=== PATIENT | female | born 1945 | race Caucasian/White ===

== ENCOUNTER 2024-03-27 08:01 | Day surgery (SDC) | payer OTHER, SELFPAY | END 2024-03-27 10:18 | disposition home or self-care (01) | LOC: CATH 08:01 | PROVIDERS: ATTENDING PHYSICIAN Internal Medicine Cardiovascular Disease; FAMILY PHYSICIAN Dentist Oral and Maxillofacial Surgery; OTHER PHYSICIAN Internal Medicine Interventional Cardiology | DX: I08.3 Combined rheumatic disorders of mitral, aortic and tricuspid valves (principal); I48.91 Unspecified atrial fibrillation; R07.89 Other chest pain; R06.09 Other forms of dyspnea; I45.2 Bifascicular block; I10 Essential (primary) hypertension; J44.9 Chronic obstructive pulmonary disease, unspecified; Z79.01 Long term (current) use of anticoagulants | CPT/HCPCS: 93312; 93320; 93325; 93005 ==

== ENCOUNTER 2024-04-24 08:51 | Inpatient (IN) | payer OTHER, SELFPAY ==
[2024-04-24] VITALS (8 sets, daily range): BP systolic 110–142; BP diastolic 63–92; BMI 23.1
--- NOTE | 2024-04-24 09:49 | W.PN.UPDATE ---
Update Note
Progress Note Update
Brief CTS note
Patient admitted preemptively in anticipation of MVR/TVR/MAZE/ELAA on Tuesday with Dr. Gomez.
Preoperative stratification has been ordered and is partially completed.
Non contrast CT of the chest shows collapsed left lower lobe. ? bronchial mass. Will need further evaluation with possible bronch vs. contrast enhanced CT. Will discuss with Dr. Gomez.
Complete PFTs completed this AM - interpretation pending.
Needs PA catheter - planning for today pending tree tapping laborer availability. Will then make determination regarding diuresis.
Will eventually need IV heparin given afib. Last Eliquis dose yesterday morning per the patient. Will hold with pending tree tapping laborer procedure.
[2024-04-24 10:16] LABS: Hematocrit 38.2 % (37.0-47.0); Hemoglobin 12.9 g/dL (12.0-16.0); Mean Corp Hgb Conc. 33.8 g/dL (33.0-37.0); Mean Corpuscular Hgb 31.6 pg (27.0-31.0); Mean Corpuscular Volume 93.6 fL (81.0-99.0); Mean Platelet Volume 9.5 fL (7.4-10.4); Platelet Count 254 10^3/uL (130-400); Red Blood Cell Count 4.08 10^6/uL (4.20-5.40); Red Cell Dist. Width 12.9 % (11.5-14.5); White Blood Cell Count 6.2 10^3/uL (4.8-10.8)
[2024-04-24 10:21] LABS: INR 1.21; PT 15.2 Sec (11.4-14.6)
[2024-04-24 10:22] LABS: APTT 30.3 Sec (23.4-35.0)
[2024-04-24 11:13] LABS: ALT (SGPT) 27 U/L (0-35); AST (SGOT) 30 U/L (14-36); Albumin 4.2 g/dl (3.5-5.0); Alkaline Phosphatase 63 U/L (38-126); Blood Urea Nitrogen 44 mg/dl (7-17); Calcium 10.6 mg/dl (8.4-10.2); Carbon Dioxide 29 mmol/L (22-30); Chloride 94 mmol/L (98-107); Direct Bilirubin 0.1 mg/dl (0.0-0.4); Estimated Creatinine Clearance 25 ml/min; Glucose 98 mg/dl (70-99); Potassium 4.1 mmol/L (3.5-5.1); Sodium 136 mmol/L (135-145); Total Bilirubin 0.5 mg/dl (0.2-1.3); Total Protein 6.7 g/dl (6.3-8.2); eGFR 38.03
--- NOTE | 2024-04-24 11:47 | PTCARENOTE ---
admitted patient into room. admission done. IV placed and labs drawn. ekg done. NPO. being sent for pre op testing and PFTs. swan placement today. granddaughter at bedside with patient. will continue to monitor.
--- NOTE | 2024-04-24 13:28 | CON.CAR ---
Addendum entered and electronically signed by Shane De Jesus MD 04/24/24 16:01:
patient seen and examined
agree with SHAD Carreon's note and assessment
agree with SHAD Carreon's plan
for rhc today
exam:
murmurs noted
aao x 3
non focal neurologically
af noted on tele reate controlled
cor irreg irreg
lungs diminished at bases
remainder PA-C exam
Impression:
Direct admission for planned MVR, TVR, MAZE and DUSTIN clip on 04/27/24
Severe MR by GABRIELA 03/27/24
Moderate TR
Persistent Afib
Chronic Eliquis OAC, last dose 04/23/24 AM
HTN
Former smoker
Nonobstructive CAD by cath at 05/04/23
RBBB
LAFB
h/o 2:1 AV block at time of cath 04/2023
CKD 3b
GABRIELA 03/27/2024: EF 60 to 65%, normal regional wall motion, severe mitral valve prolapse at predominantly P2 with a likely torn cord, eccentric jet of severe MR with peak E wave velocity 1.3M/S, mean gradient 2 mmHg, mild aortic regurgitation,
moderate TR
Plan:
-Patient came to today for elective admission prior to planned MVR, TVR, MAZE and DUSTIN clip on 04/27/24 for severe MR, moderate TR and persistent Afib, cardiology now consulted to follow along. Patient sees Dr. Knox at [facility]. Patient had an
abnormal stress test in the fall 2022 and was then referred for cardiac catheterization which was performed on 05/04/2023. Patient had near normal coronary arteries at time of cardiac cath 05/04/2023. Patient also noted to have intermittent 2-1 AV
block with heart rates in the 40s during the procedure and so her outpatient dose of metoprolol was stopped. Patient had a repeat echo a couple of months after cardiac cath that showed clear prolapse of a posterior scallop with severe eccentric MR
and also evidence of more severe TR. Patient then had GABRIELA on 03/27/2024 which showed preserved EF and severe MR. Patient was seen by CT surgery as an outpatient on 03/28/2024 and it was felt that she would be a candidate for MVR, TVR, MAC and DUSTIN
clip. Patient has a history of persistent atrial fibrillation.
-Patient to have [place] catheter placed on 04/24/24 by interventional cardiology
-ECG from today reviewed by me shows Afib with RBBB. Patient has a h/o intermittent 2:1 AV block and metoprolol was stopped 04/2023. Patient wore a 7-day Holter monitor from 01/12/24 until 01/24/24 that showed reasonable rate control of her atrial
fibrillation with heart rate ranging from 64 to 149 bpm and the average heart rate was 98 bpm. Will follow on tele post-op.
-Outpatient dose of Eliquis 5 mg BID (age 78, Cre 1.4, wt 57.3) is on hold in anticipation of surgery. Given age 78 and wt 57.3 patient should be on Eliquis 2.5 mg BID upon d/c.
Original Note:
Consultation
Consultation Request
Date/Time Consultation Requested: 04/24/24
Date/Time Consultation Performed: 04/24/24
Requesting Provider: Dr. Gomez
Performing Provider: Dr. De Jesus
Reason for Consultation: Preoperative evaluation for planned MVR/TVR
Medical History
-
History of Present Illness:
Patient came to today for elective admission prior to planned MVR, TVR, MAZE and DUSTIN clip on 04/27/24 for severe MR, moderate TR and persistent Afib, cardiology now consulted to follow along. Patient sees Dr. Knox at [facility]. Patient had an
abnormal stress test in the fall 2022 and was then referred for cardiac catheterization which was performed on 05/04/2023. Patient had near normal coronary arteries at time of cardiac cath 05/04/2023. Patient also noted to have intermittent 2-1 AV
block with heart rates in the 40s during the procedure and so her outpatient dose of metoprolol was stopped. Patient had a repeat echo a couple of months after cardiac cath that showed clear prolapse of a posterior scallop with severe eccentric MR
and also evidence of more severe TR. Patient then had GABRIELA on 03/27/2024 which showed preserved EF and severe MR. Patient was seen by CT surgery as an outpatient on 03/28/2024 and it was felt that she would be a candidate for MVR, TVR, MAC and DUSTIN
clip. Patient has a history of persistent atrial fibrillation.
PMH:
Severe MR by GABRIELA 03/27/24
Moderate TR
Persistent Afib
Chronic Eliquis OAC, last dose 04/23/24 AM
HTN
Former smoker
Nonobstructive CAD by cath at 05/04/23
RBBB
LAFB
h/o 2:1 AV block at time of cath 04/2023
CKD 3b
Past Medical History
Past Medical History: Other (in HPI)
Past Surgical History: Appendectomy
Social History
Tobacco: Former Smoker
Alcohol: None
Drug: None
Personal:
Living: With Family
Family History
Family History: Cancer and Diabetes
Allergies / Home Medications
Allergy/AdvReac Type Severity Reaction Status Date / Time
Iodinated Contrast Media Allergy Unknown Verified 04/09/24 09:30
�Medication �Instructions �Recorded �Confirmed �Type
amlodipine 2.5 mg tablet 2.5 mg PO DAILY Blood Pressure 05/04/23 04/09/24 History
apixaban 5 mg tablet (Eliquis) 5 mg PO BID Blood Clot 05/04/23 04/09/24 History
Prevention/Tx
ipratropium 0.5 mg-albuterol 3 mg 3 ml inhalation PRN PRN SOB 05/04/23 04/09/24 History
(2.5 mg base)/3 mL nebulization
soln
ramipril 5 mg capsule 5 mg PO DAILY Blood Pressure 05/04/23 04/09/24 History
rosuvastatin 20 mg tablet 20 mg PO DAILY High Cholesterol 05/04/23 04/09/24 History
elysixnq-oof-klfw-FA-Ca carb-vit K 1 tab PO DAILY Supplement 03/27/24 04/09/24 History
18 mg iron-400 mcg-500 mg tablet
Review of Systems
-
History Source: Patient
All other systems: Negative unless noted
Physical Exam
Vital Signs
Temp Pulse Resp BP Pulse Ox
97.6 F 84 18 121/81 97
04/24/24 09:19 04/24/24 09:30 04/24/24 09:22 04/24/24 09:22 04/24/24 10:12
GEN: NAD. AAOx3
HEENT: EOMI, MMM
LUNGS: No audible wheezes
CV: Afib on tele
ABD: ND
EXT: No edema B/L
NEURO: Gross non-focal
SKIN: No rash
Lab Results
04/24/24 12:27
04/24/24 10:02
Impression / Plan
-
PCP: Dr. Hiren Gamino
Cardiology: Dr. Knox
Impression:
Direct admission for planned MVR, TVR, MAZE and DUSTIN clip on 04/27/24
Severe MR by GABRIELA 03/27/24
Moderate TR
Persistent Afib
Chronic Eliquis OAC, last dose 04/23/24 AM
HTN
Former smoker
Nonobstructive CAD by cath at 05/04/23
RBBB
LAFB
h/o 2:1 AV block at time of cath 04/2023
CKD 3b
GABRIELA 03/27/2024: EF 60 to 65%, normal regional wall motion, severe mitral valve prolapse at predominantly P2 with a likely torn cord, eccentric jet of severe MR with peak E wave velocity 1.3M/S, mean gradient 2 mmHg, mild aortic regurgitation,
moderate TR
Plan:
-Patient came to today for elective admission prior to planned MVR, TVR, MAZE and DUSTIN clip on 04/27/24 for severe MR, moderate TR and persistent Afib, cardiology now consulted to follow along. Patient sees Dr. Knox at [facility]. Patient had an
abnormal stress test in the fall 2022 and was then referred for cardiac catheterization which was performed on 05/04/2023. Patient had near normal coronary arteries at time of cardiac cath 05/04/2023. Patient also noted to have intermittent 2-1 AV
block with heart rates in the 40s during the procedure and so her outpatient dose of metoprolol was stopped. Patient had a repeat echo a couple of months after cardiac cath that showed clear prolapse of a posterior scallop with severe eccentric MR
and also evidence of more severe TR. Patient then had GABRIELA on 03/27/2024 which showed preserved EF and severe MR. Patient was seen by CT surgery as an outpatient on 03/28/2024 and it was felt that she would be a candidate for MVR, TVR, MAC and DUSTIN
clip. Patient has a history of persistent atrial fibrillation.
-Patient to have [place] catheter placed on 04/24/24 by interventional cardiology
-ECG from today reviewed by me shows Afib with RBBB. Patient has a h/o intermittent 2:1 AV block and metoprolol was stopped 04/2023. Patient wore a 7-day Holter monitor from 01/12/24 until 01/24/24 that showed reasonable rate control of her atrial
fibrillation with heart rate ranging from 64 to 149 bpm and the average heart rate was 98 bpm. Will follow on tele post-op.
-Outpatient dose of Eliquis 5 mg BID (age 78, Cre 1.4, wt 57.3) is on hold in anticipation of surgery. Given age 78 and wt 57.3 patient should be on Eliquis 2.5 mg BID upon d/c.
-
[2024-04-24 13:40] LABS: B.E. 2.6 mmol/L; HCO3 27.2 mmol/L (21-28); O2 Saturation % 96.1 % (94-98); PCO2 41 mmHg (32-35); PO2 65 mmHg (83-108); pH 7.43 (7.35-7.45)
[2024-04-24] MEDS: BUMEX 50 IV (13:58)
--- NOTE | 2024-04-24 14:01 | PTCARENOTE ---
bumex gtt initiated at ordered rate. will continue to monitor.
--- NOTE | 2024-04-24 14:48 | CM ---
spoke to pt in room, she is prev indep, lives with her husb and grandaughter/ in a 2 story home with 1 step to enter. she has a cane at home to use if needed. plan is for MVR/TVR/MAZE/DUSTIN on 04/27. cm to preop tomorrow.
--- NOTE | 2024-04-24 14:57 | CON.INTV ---
Consultation
Consultation Request
Date/Time Consultation Requested: 04/24/2024
Date/Time Consultation Performed: 04/24/2024
Requesting Provider: Dr. Gomez
Performing Provider: Dr. Kolton Karimi
Reason for Consultation: Abnormal CT chest
Medical History
-
History of Present Illness:
78-year-old female former smoker, with mitral valve disease on recent echocardiogram 12/2023 demonstrated severely dilated left atrium with mitral regurgitation. She has been electively admitted 04/24/2024 in preparation for cardiac surgery on
Tuesday. Plan surgeries MVR, TVR, maze, DUSTIN clip for severe MR, moderate TR and persistent atrial fibrillation.
Patient has history of intermittent 2-1 AV block with low heart rates in the 40s.
Underwent CT of the chest that demonstrated left lower lobe atelectasis, cannot rule out endobronchial mass.
Patient reports recent admission to [facility] with bronchitis. Completed antibiotic therapy.
She does not follow-up with pulmonary. Usually takes nebulizers as needed.
Denies hemoptysis
Denies recent prior CAT scans.
Past Medical History
Past Medical History: Other ( see assessment and plan)
Social History
Tobacco: Former Smoker
Alcohol: None
Drug: None
Personal:
Living: With Family
Family History
Family History: Reviewed & Not Pertinent
Allergies / Home Medications
Allergies
Allergy/AdvReac Type Severity Reaction Status Date / Time
Iodinated Contrast Media Allergy Unknown Verified 04/09/24 09:30
Home Medications
�Medication �Instructions �Recorded �Confirmed �Last Taken �Type
amlodipine 2.5 mg tablet 2.5 mg PO DAILY Blood Pressure 05/04/23 04/09/24 03/26/24 18:00 History
1 tab
apixaban 5 mg tablet (Eliquis) 5 mg PO BID Blood Clot 05/04/23 04/09/24 03/27/24 06:00 History
Prevention/Tx 1 tab
ipratropium 0.5 mg-albuterol 3 mg 3 ml inhalation PRN PRN SOB 05/04/23 04/09/24 03/27/24 06:00 History
(2.5 mg base)/3 mL nebulization
soln
ramipril 5 mg capsule 5 mg PO DAILY Blood Pressure 05/04/23 04/09/24 03/26/24 18:00 History
1 capsule
rosuvastatin 20 mg tablet 20 mg PO DAILY High Cholesterol 05/04/23 04/09/24 03/26/24 18:00 History
1 tab
lodkfsfz-kgs-hjmr-FA-Ca carb-vit K 1 tab PO DAILY Supplement 03/27/24 04/09/24 03/26/24 18:00 History
18 mg iron-400 mcg-500 mg tablet 1 tab
Review of Systems
-
History Source: Patient
All other systems: Negative unless noted
Vitals / Labs / Diagnostic Testing
Vital Signs
Temp Pulse Resp BP Pulse Ox
97.5 F 83 20 121/81 97
04/24/24 14:01 04/24/24 14:01 04/24/24 14:01 04/24/24 09:22 04/24/24 14:01
Lab Data
04/24/24 12:27
04/24/24 10:02
Laboratory Results
04/24/24 04/24/24 04/24/24
10: 12:27 13:18
PT 15.2 H
INR 1.21
APTT 30.3 Cancelled
pH 7.43
pCO2 41 H
pO2 65 L
HCO3 27.2
O2 Delivery Level
Diagnostic Testing:
Physical Exam
-
HEENT: Normocephalic
Cardiovascular: S1/S2
Respiratory: Wheeze (Minimal expiratory bilaterally) and Non-Labored Respirations
GI: Soft and Non Distended
Neurology: Awake and No Motor Deficits
Skin: Warm
General: Comfortable
Assessment
-
78-year-old woman with history of COPD, former smoker who quit longer than 10 years ago, history of mitral valve disease. Electively admitted for proposed surgery on 04/27/2024. Reports recently admitted to the hospital with bronchitis completed
antibiotic therapy. Has persistent cough and difficulty expectorating. CT chest in preparation for surgery demonstrated left lower lobe atelectasis. We were consulted for evaluation of that.
Abnormal CT chest: Left lower lobe atelectasis on CAT scan. Cannot rule out endobronchial lesion.
Direct admission for MVR, TVR, maze and L DUSTIN clip on 04/27/[address] Gomez.
COPD-not on exacerbation
Not on inhalers in the outpatient setting
Conditions present prior admission:
Hypertension
Former smoker-quit at least 10 years ago
Nonobstructive coronary artery disease on cardiac catheterization 04/2023
RBBB
History of 2: 1 AV block
Chronic kidney disease stage IIIb
Persistent atrial fibrillation
Plan and recommendations:
CT chest reviewed, Near complete collapse of the left lower lobe, there is concerns for obstructing mass resulting on left lower lobe collapse. There is a small loculated pleural effusion on the left. Patient is a former smoker, high risk for lung
cancer.
No prior imaging to review.
Suspect mucous plugging rather than endobronchial lesion, recent admission to [facility] for bronchitis/pneumonia. Completed antibiotics. Has residual cough and congestion.
Start DuoNebs 3 times daily
Start Pulmicort twice a day
Percussion therapy
Acapella device
Mucolytic
-
Will plan for bronchoscopy tomorrow 04/25/2024-hopefully in the morning. Waiting for confirmation from the bronchoscopy suite.
If confirmed will place n.p.o. overnight
Heparin will need to be stopped around 3 AM tomorrow. At least 6 hours prior to the procedure.
-
She is currently on a heparin drip as her oral anticoagulation has been stopped in preparation for cardiac surgery.
Discussed with Dr. Gomez from CT surgery
Discussed with Dr. Alvarado from cardiology
Okay to discontinue heparin prior to the procedure.
A right heart catheter is being placed today. Okay to transfer to the bronchoscopy suite.
-
Will continue to follow

Data reviewed:
Pulmonary function testing 04/24/2024:
Postbronchodilator FVC 2.28 L - 98%
FEV1 1.28 L - 72%
FEV1/FVC ratio 56%
Total lung capacity 4.6 L - 101%
Residual volume 2.35 L - 114%
RV/TLC ratio 51%
Diffusion capacity 8.79-51%
Summary: Moderate airflow obstruction with air trapping. Moderately decreased diffusion capacity. Consistent with moderate COPD.
-
GABRIELA 03/27/2024: EF 60 to 65%, normal regional wall motion, severe mitral valve prolapse at predominantly P2 with a likely torn cord, eccentric jet of severe MR with peak E wave velocity 1.3M/S, mean gradient 2 mmHg, mild aortic regurgitation,
moderate TR.
-
noncontrast CT chest 04/24/2024:
There is near complete collapse of the left lower lobe of the lung. Concern is raised for an obstructing mass in the superior aspect of the left lower lobe.
Consider further evaluation with contrast-enhanced CT of the chest.
--- NOTE | 2024-04-24 16:34 | ITS.CL.CATH ---
Research Program Manager - Catheterization
Cardiac Catheterization
Procedure Report:
RIGHT HEART CATHETERIZATION
Date of Procedure: April 24, 2024
Primary Care Physician: Dr. Hiren Gamino
Primary Hydro Generation Manager: Myself
INDICATION: The patient is a 77-year-old woman with a past medical history significant for hypertension, persistent atrial fibrillation, chronic renal insufficiency with a creatinine of approximately 1.5-1.7, and prior heavy smoking with COPD who is
for mitral valve surgery later this week is referred for right heart catheterization in an effort to optimize hemodynamics preop.
ACCESS: The patient was prepped and draped in usual sterile fashion. A 9 Polish sheath was placed in the right IJ under ultrasound guidance using a micropuncture kit.
HEMODYNAMIC FINDINGS (mmHg):
RA(a,v,m): *, 14, 11 patient in atrial fibrillation
RV(s/d,EDP): 34/7, 10
PA(s/d/m): 34/22, 27
PCWP(a,v,m): *, 24, 21
PA: 65% on room air
LV: 97% on room air
Cardiac Output/Index (l/min / l/min/m2):
Estimated Callie Method: 2.7 / 1.7
Fluoroscopy Time (min): 2.1
Radiation Dose (mGy): 8.9
DAP (Gy.cm2): 0.97
Closure device: None. The right IJ was sutured in place with a PA catheter and at 55 cm.
Complications: None
ASSESSMENT:
1: Well compensated filling pressures in the setting of severe mitral regurgitation.
CONCLUSIONS and RECOMMENDATIONS:
1: Continue CVICU monitoring with anticipated surgery as scheduled.
Pamela Knox M.D.
[2024-04-24] MEDS: MORPHINE SULFATE 2 MG IV (16:57)
[2024-04-24] MEDS: HEPARIN 25000 UNITS/250 ML IV (17:25)
--- NOTE | 2024-04-24 17:36 | W.PN.UPDATE ---
Update Note
Progress Note Update
Will plan tentatively bronchoscopy for airway inspection tomorrow.
Awaiting confirmation from procedure suite hopefully around 10 AM procedure could be performed.
N.p.o. after midnight
Okay to stop heparin drip around 3 AM.
--- NOTE | 2024-04-24 17:43 | PTCARENOTE ---
sent for swan/cordis with Dr regalado. back and placed on monitor. all lines zeroed and calibrated. CI 1.98. PA 30/15 CVP 8. bumex gtt shut off and hep gtt initiated at ordered rate. patient complaining of strained neck pains. morphine ordered by MONTSERRAT,
B[place]. warm blanket applied as well. Will continue to monitor.
[2024-04-24] MEDS: DUONEB 3 ML INH (20:00)
[2024-04-24] MEDS: PULMICORT 0.5 MG INH (20:00)
[2024-04-24] MEDS: ZOFRAN 4 MG IV (20:35)
[2024-04-24] MEDS: MUCINEX 600 MG PO (20:35)
--- NOTE | 2024-04-24 21:00 | PTCARENOTE ---
Assumed care of pt from nazario RN. Walking rounds completed. Pt AAOx3. TSE. Pt A-fib on the tele monitor. HR 90-100s. Pt has permanent pacemaker in place. Angier @55 cm intact. CVP~4. PAP 20-30s/teens. CI 1.99. CO 3.12. BP stable. Palpable pulses
throughout. Trace bilateral ankle edema present. Pt on RA. POX 94-96%. Lung sounds diminished @ L base. +cough. Deep breathing encouraged. Abdomen soft/nontender. +BS. Pt voided w/o issue on bedside commode. Right IJ cordis w/ swan CDI. All lines
leveled, zoered, and flushed. Left 18 gauge PIV CDI. Left upper chest pacemaker site w/ steri strips CDI. Heparin infusing as ordered. See worklist for full nursing assessment and interventions. Pt repositioned in bed. Call mukherjee within reach.
[2024-04-24] MEDS: ROXICODONE 5 MG PO (21:05)
[2024-04-24] MEDS: FLEXBUMIN 100 IV (21:28)
[2024-04-24 23:56] LABS: APTT 52.2 Sec (23.4-35.0)
[2024-04-25] VITALS (26 sets, daily range): BP systolic 81–126; BP diastolic 60–82; BMI 23.4
--- NOTE | 2024-04-25 00:16 | PTCARENOTE ---
No acute changes in assessment. Pt remains a-fib on the tele monitor. HR 90-100s. BP 110-120s/70s. Snyder intact. CVP~3. PAPs 20s/teens. CI 2.54. CO 3.99. CVP/PAP leveled, zeroed, and flushed. Pt remains on RA. POX 91-95%. Left upper chest pacemaker
site intact. Pt repositioned in bed. Heparin infusing per protocol. Call mukherjee within reach.
--- NOTE | 2024-04-25 03:02 | PTCARENOTE ---
Heparin infusion stopped @0300 as ordered in preparation for bronchoscopy.
--- NOTE | 2024-04-25 04:45 | PTCARENOTE ---
Pt reassessed. Pt A-fib on the tele monitor. HR 80-90s. BP 110's/70s. [place] intact. CVP ~5. PAP 20s/teens. CI: 2.24. CO 3.51. All lines leveled, zeroed, and flushed. Pt on RA. POX 94-96%. Pt OOB w/ assist to use bedside commode. Pt voided w/o issue.
Left chest wall PPM site intact. Pt repositioned in bed. Pt NPO for bronchoscopy later today. Labs drawn and sent. Call mukherjee within reach.
[2024-04-25 04:54] LABS: Hematocrit 32.2 % (37.0-47.0); Mean Corp Hgb Conc. 34.2 g/dL (33.0-37.0); Mean Corpuscular Hgb 32.8 pg (27.0-31.0); Mean Corpuscular Volume 96.1 fL (81.0-99.0); Mean Platelet Volume 9.9 fL (7.4-10.4); Platelet Count 201 10^3/uL (130-400); Red Blood Cell Count 3.35 10^6/uL (4.20-5.40); Red Cell Dist. Width 12.9 % (11.5-14.5); White Blood Cell Count 7.1 10^3/uL (4.8-10.8)
[2024-04-25 04:55] LABS: NT-proBNP 4200 pg/ml
[2024-04-25 05:19] LABS: ALT (SGPT) 20 U/L (0-35); AST (SGOT) 23 U/L (14-36); Albumin 3.9 g/dl (3.5-5.0); Alkaline Phosphatase 48 U/L (38-126); Blood Urea Nitrogen 49 mg/dl (7-17); Calcium 10.3 mg/dl (8.4-10.2); Carbon Dioxide 29 mmol/L (22-30); Chloride 95 mmol/L (98-107); Estimated Creatinine Clearance 24 ml/min; Glucose 108 mg/dl (70-99); Magnesium 1.5 mg/dl (1.6-2.3); Potassium 4.1 mmol/L (3.5-5.1); Sodium 135 mmol/L (135-145); Total Bilirubin 0.4 mg/dl (0.2-1.3); Total Protein 5.9 g/dl (6.3-8.2); eGFR 35.01
--- NOTE | 2024-04-25 07:00 | PTCARENOTE ---
Bedside walking rounds report received. Patient seen on rounds resting in bed. Awake alert and oriented x 3. Denies pain. A fibb on monitor. Left upper chest recent PPM site intact. Occasional v paced spikes noted on monitor. Right IJ swan noe
catheter secure at 55cm. Normal waveforms. CI's 2.24. Vitals stable. SVR 1981. CT surgical SUPERVISOR FINISHING ROOM/Dr. Gomez updated with hemodynamics: Plan to keep swan noe and resume albumin 25%. Also plan for bronchoscopy at 1030am. Room air.
[2024-04-25 07:34] LABS: Glycohemoglobin (HgbA1c) 5.6 % (4.0-5.6)
[2024-04-25] MEDS: DUONEB 3 ML INH ×3 (07:43→19:14)
[2024-04-25] MEDS: PULMICORT 0.5 MG INH ×2 (07:43→19:36)
[2024-04-25] MEDS: CRESTOR 20 MG PO (08:35)
[2024-04-25] MEDS: NORVASC 2.5 MG PO (08:35)
[2024-04-25] MEDS: MUCINEX 600 MG PO (08:35)
--- NOTE | 2024-04-25 09:30 | W.PN.UPDATE ---
Update Note
Progress Note Update
Patient seen this morning. CVP was 7 PA pressures were 31/19. Patient was given 1 dose of 25% albumin. Heparin on hold for bronchoscopy later today. Heparin will resume after bronchoscopy and will send for repeat CAT scan of the chest tomorrow
morning.
[2024-04-25] MEDS: FLEXBUMIN 100 IV (09:46)
--- NOTE | 2024-04-25 10:20 | PTCARENOTE ---
Patient taken to GI/Pulmonary lab for bronchoscopy with Dr. Curran: updated bedside report given to receiving RN.
--- NOTE | 2024-04-25 11:30 | PTCARENOTE ---
Report received from bronchoscopy procedural room: patient picked up and transported back to cvicu: groggy but oriented x 3.
--- NOTE | 2024-04-25 11:54 | W.PN.UPDATE ---
Update Note
Progress Note Update
.
Bronchoscopy completed-no endobronchial lesions.
Vocal cords without lesions, entire tracheobronchial tree inspected and no endobronchial lesions.
Thick tenacious secretions noted, both right and left side-washings were taken for routine, AFB and fungal from the right middle lobe separately from the left lower lobe.
Subsequently therapeutic bronchoscopy was performed with lavage repeatedly right middle lobe, right lower lobe, left lingula and left lower lobe and additional mucous plugs and retained secretions were removed.
Patient tolerated procedure well.
We will intensify mucolytics, continue bronchodilators and await cultures-doubt active infection
--- NOTE | 2024-04-25 12:03 | W.PN.CARDCBS ---
Addendum entered and electronically signed by Shane De Jesus MD 04/25/24 14:39:
Patient seen and examined
Agree with RN PROCEDURES note and assessment
Agree with RN PROCEDURES plan
Examination:
Cordis and [place] in the right IJ
Alert and x 3
Nonfocal neurologically
Trace extremity edema
Cor regular regular
Atrial fibrillation on telemetry
Remainder as per CRP note
Impression:
Direct admission for planned MVR, TVR, MAZE and DUSTIN clip on 04/27/24
Severe MR by GABRIELA 03/27/24
Moderate TR
Persistent Afib
Chronic Eliquis OAC, last dose 04/23/24 AM
HTN
Former smoker
abnormal chest CT 04/24/24, s/p bronch 04/25/24 showing no endobrachial lesions
Nonobstructive CAD by cath at 05/04/23
RBBB
LAFB
h/o 2:1 AV block at time of cath 04/2023
CKD 3b
GABRIELA 03/27/2024: EF 60 to 65%, normal regional wall motion, severe mitral valve prolapse at predominantly P2 with a likely torn cord, eccentric jet of severe MR with peak E wave velocity 1.3M/S, mean gradient 2 mmHg, mild aortic regurgitation,
moderate TR
RHC 04/24/24: RA 11, PA 34/22, PCWP 21, CO/CI: 2.7/1.7, [place] remains in place
bronch 04/25/24 (performed due to abnl chest CT showing near complete collapse of LLL, concern for obstructing mass): no endobrachial lesions, + thick secretions, lavage w/ removal of mucous plugs and secretions
Plan:
-Patient electively admitted 04/24/24 for planned MVR, TVR, MAZE and DUSTIN clip on 04/27/24 for severe MR, moderate TR and persistent Afib. Patient sees Dr. Knox at [facility]. Patient had an abnormal stress test in the fall 2022 and was then referred for
cardiac catheterization which was performed on 05/04/2023. Patient had near normal coronary arteries at time of cardiac cath 05/04/2023. Patient also noted to have intermittent 2-1 AV block with heart rates in the 40s during the procedure and so
her outpatient dose of metoprolol was stopped. Patient had a repeat echo a couple of months after cardiac cath that showed clear prolapse of a posterior scallop with severe eccentric MR and also evidence of more severe TR. Patient then had GABRIELA on
03/27/2024 which showed preserved EF and severe MR. Patient was seen by CT surgery as an outpatient on 03/28/2024 and it was felt that she would be a candidate for MVR, TVR, MAC and DUSTIN clip. Patient has a history of persistent atrial fibrillation.
-[place] placed 04/25/24. Currently RA 10, PA 35/20, CO/CI 3.59/2.29
-ECG 04/24/24 Afib with RBBB. Patient has a h/o intermittent 2:1 AV block and metoprolol was stopped 04/2023. Patient wore a 7-day Holter monitor from 01/12/24 until 01/24/24 that showed reasonable rate control of her atrial fibrillation with heart
rate ranging from 64 to 149 bpm and the average heart rate was 98 bpm. Telemetry reviewed by me: Afib HR 80s-103. Follow on tele post-op.
-Outpatient dose of Eliquis 5 mg BID (age 78, Cre 1.4, wt 57.3) is on hold in anticipation of surgery. Given age 78 and wt 57.3 patient should be on Eliquis 2.5 mg BID upon d/c. Currently on heparin gtt.
-s/p broch 04/25/24 with removal of mucous plugs/secretions, cultures performed,no endobronchial lesions. O2 sat 95% on RA.
Original Note:
Today's Communication / Plan
-
-awaiting MVR, TVR, MAZE and DUSTIN clip on 04/27/24
-afib rate controlled, on heparin
-PAPs stable
Impression / Plan
-
PCP: Dr. Hiren Gamino
Cardiology: Dr. Knox
Impression:
Direct admission for planned MVR, TVR, MAZE and DUSTIN clip on 04/27/24
Severe MR by GABRIELA 03/27/24
Moderate TR
Persistent Afib
Chronic Eliquis OAC, last dose 04/23/24 AM
HTN
Former smoker
abnormal chest CT 04/24/24, s/p bronch 04/25/24 showing no endobrachial lesions
Nonobstructive CAD by cath at 05/04/23
RBBB
LAFB
h/o 2:1 AV block at time of cath 04/2023
CKD 3b
GABRIELA 03/27/2024: EF 60 to 65%, normal regional wall motion, severe mitral valve prolapse at predominantly P2 with a likely torn cord, eccentric jet of severe MR with peak E wave velocity 1.3M/S, mean gradient 2 mmHg, mild aortic regurgitation,
moderate TR
RHC 04/24/24: RA 11, PA 34/22, PCWP 21, CO/CI: 2.7/1.7, [place] remains in place
bronch 04/25/24 (performed due to abnl chest CT showing near complete collapse of LLL, concern for obstructing mass): no endobrachial lesions, + thick secretions, lavage w/ removal of mucous plugs and secretions
Plan:
-Patient electively admitted 04/24/24 for planned MVR, TVR, MAZE and DUSTIN clip on 04/27/24 for severe MR, moderate TR and persistent Afib. Patient sees Dr. Knox at [facility]. Patient had an abnormal stress test in the fall 2022 and was then referred for
cardiac catheterization which was performed on 05/04/2023. Patient had near normal coronary arteries at time of cardiac cath 05/04/2023. Patient also noted to have intermittent 2-1 AV block with heart rates in the 40s during the procedure and so
her outpatient dose of metoprolol was stopped. Patient had a repeat echo a couple of months after cardiac cath that showed clear prolapse of a posterior scallop with severe eccentric MR and also evidence of more severe TR. Patient then had GABRIELA on
03/27/2024 which showed preserved EF and severe MR. Patient was seen by CT surgery as an outpatient on 03/28/2024 and it was felt that she would be a candidate for MVR, TVR, MAC and DUSTIN clip. Patient has a history of persistent atrial fibrillation.
-[place] placed 04/25/24. Currently RA 10, PA 35/20, CO/CI 3.59/2.29
-ECG 04/24/24 Afib with RBBB. Patient has a h/o intermittent 2:1 AV block and metoprolol was stopped 04/2023. Patient wore a 7-day Holter monitor from 01/12/24 until 01/24/24 that showed reasonable rate control of her atrial fibrillation with heart
rate ranging from 64 to 149 bpm and the average heart rate was 98 bpm. Telemetry reviewed by me: Afib HR 80s-103. Follow on tele post-op.
-Outpatient dose of Eliquis 5 mg BID (age 78, Cre 1.4, wt 57.3) is on hold in anticipation of surgery. Given age 78 and wt 57.3 patient should be on Eliquis 2.5 mg BID upon d/c. Currently on heparin gtt.
-s/p broch 04/25/24 with removal of mucous plugs/secretions, cultures performed,no endobronchial lesions. O2 sat 95% on RA.
-
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
Subjective
Date of Service: April 25, 2024
s/p RHC 04/24/24 w/ [place] in place
s/p bronch 04/25/24 due to abnl chest CT: s/p lavage and removal of mucous plug and secretions, no endobronchial lesions
in rate controlled afib
pt denies SOB, CP, palps, lightheadedness, edema
Objective
Labs:
04/25/24 04:16
04/25/24 04:16
Labs
Hgb 11.0 g/dL (12.0-16.0) L 04/25/24 04:16
Hct 32.2 % (37.0-47.0) L 04/25/24 04:16
Plt Count 201 10^3/uL (130-400) D 04/25/24 04:16
PT 15.2 Sec (11.4-14.6) H 04/24/24 10:02
INR 1.21 04/24/24 10:02
APTT 52.2 Sec (23.4-35.0) H 04/24/24 23:37
Sodium 135 mmol/L (135-145) 04/25/24 04:16
Potassium 4.1 mmol/L (3.5-5.1) 04/25/24 04:16
BUN 49 mg/dl (7-17) H 04/25/24 04:16
Creatinine 1.5 mg/dL (0.6-1.0) H 04/25/24 04:16
Glucose 108 mg/dl (70-99) H 04/25/24 04:16
Vital Signs and I&O:
Vital Signs
Temp Pulse Resp BP Pulse Ox
97.5 F 78 20 118/70 95
04/25/24 11:59 04/25/24 11:59 04/25/24 11:59 04/25/24 11:59 04/25/24 11:59
Vital Signs
Temp Pulse Resp BP Pulse Ox
97.5 F 78 20 118/70 95
04/25/24 11:59 04/25/24 11:59 04/25/24 11:59 04/25/24 11:59 04/25/24 11:59
Intake & Output
04/23/24 04/24/24 04/25/24 04/26/24
06:59 06:59 06:59 06:59
Intake Total 482 / 482 120 / 120
Output Total 175 / 175 250 / 250
Balance 307 / 307 -130 / -130
Physical Exam
Physical Exam
GEN: No distress, awake, Ox3
HEENT: supple, anicteric, mmm
LUNGS: CTA, no wheezes/rales, BS coarse
CV: irrge, irreg S1/S2, 2/6 syst LSB, 3/6 systolic murmur apex
ABD: soft, BS+, NT/ND
EXT: No edema
NEURO: Gross non-focal
SKIN: No rash
[2024-04-25] MEDS: HEPARIN 25000 UNITS/250 ML IV (12:21)
--- NOTE | 2024-04-25 13:47 | W.PN.INTV ---
Today's Communication / Plan
Recommendations
Continue nebulizers
Percussion therapy
Follow cultures
Mucolytic's
Nebulized steroids
Continue with cardiac management
Assessment
-
78-year-old woman with history of COPD, former smoker who quit longer than 10 years ago, history of mitral valve disease. Electively admitted for proposed surgery on 04/27/2024. Reports recently admitted to the hospital with bronchitis completed
antibiotic therapy. Has persistent cough and difficulty expectorating. CT chest in preparation for surgery demonstrated left lower lobe atelectasis. We were consulted for evaluation of that.
Abnormal CT chest: Left lower lobe atelectasis on CAT scan.
Status post bronchoscopy 04/25/2024: No evidence for endobronchial lesion. Tenacious secretions.
Direct admission for MVR, TVR, maze and L DUSTIN clip on 04/27/[address] Gomez.
COPD-not on exacerbation
Not on inhalers in the outpatient setting
Conditions present prior admission:
Hypertension
Former smoker-quit at least 10 years ago
Nonobstructive coronary artery disease on cardiac catheterization 04/2023
RBBB
History of 2: 1 AV block
Chronic kidney disease stage IIIb
Persistent atrial fibrillation
Plan and recommendations:
CT chest reviewed, Near complete collapse of the left lower lobe, there is concerns for obstructing mass resulting on left lower lobe collapse. There is a small loculated pleural effusion on the left. Patient is a former smoker.
No prior imaging to review.
Status post bronchoscopy 04/25/2024:
Report reviewed no evidence for endobronchial lesion. There is bilateral tenacious secretions. Suctioning performed.
Culture was sent
Patient recently completed full course of antibiotics.
recent admission to [facility] for bronchitis/pneumonia.
Continue secretion clearance interventions per
Continue Pulmicort twice a day
Continue DuoNebs 3 times a day
Percussion therapy-2-3 times a day
Acapella device-encourage
Mucolytic-continue
-
Continue with cardiac management
For planned surgery on 04/27/2024 after optimizing
-
Will continue to follow

Data reviewed:
Pulmonary function testing 04/24/2024:
Postbronchodilator FVC 2.28 L - 98%
FEV1 1.28 L - 72%
FEV1/FVC ratio 56%
Total lung capacity 4.6 L - 101%
Residual volume 2.35 L - 114%
RV/TLC ratio 51%
Diffusion capacity 8.79-51%
Summary: Moderate airflow obstruction with air trapping. Moderately decreased diffusion capacity. Consistent with moderate COPD.
-
GABRIELA 03/27/2024: EF 60 to 65%, normal regional wall motion, severe mitral valve prolapse at predominantly P2 with a likely torn cord, eccentric jet of severe MR with peak E wave velocity 1.3M/S, mean gradient 2 mmHg, mild aortic regurgitation,
moderate TR.
-
noncontrast CT chest 04/24/2024:
There is near complete collapse of the left lower lobe of the lung. Concern is raised for an obstructing mass in the superior aspect of the left lower lobe.
Consider further evaluation with contrast-enhanced CT of the chest.
Subjective Dataa
Subjective Data
Date of Service:
Date of Service: April 25, 2024
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
Subjective:
Underwent bronchoscopy earlier today tolerating well
Continues to report some coughing.
Denies any chest discomfort.
Review of Systems
Cardiopulmonary: Dyspnea (none at rest)
GI: Abdominal Pain (n) and Nausea (n)
Objective Data
Data Reviewed
Vital Signs / I&O / Oxygen:
Vital Signs
Temp Pulse Resp BP Pulse Ox
97.5 F 88 16 118/75 95
04/25/24 11:59 04/25/24 13:10 04/25/24 13:10 04/25/24 13:00 04/25/24 13:10
Intake and Output
04/24/24 04/25/24 04/26/24
06:59 06:59 06:59
Intake Total 482 / 482 120 / 120
Output Total 175 / 175 250 / 250
Balance 307 / 307 -130 / -130
SaO2 95
Physical Exam
General: Comfortable
HEENT: Normocephalic
Cardiovascular: S1-S2
Respiratory: Wheeze (minimal expiratory, good air movement)
GI: Soft and Non Distended
Neurology: Awake, Alert and No Motor Deficits
Skin: Warm
Labs/Micro/Reports
Lab Data
04/25/24 04:16
04/25/24 04:16
Laboratory Results
04/24/24
23:37
APTT 52.2 H
Microbiology
04/25/24 11:17 Bronch Right Middle Lobe Fungal Culture - Preliminary
Culture in progress.
Positive cultures are reported as soon as detected.
Final report to follow in four to five weeks.
04/25/24 11:16 Bronch Left Lower Lobe Fungal Culture - Preliminary
Culture in progress.
Positive cultures are reported as soon as detected.
Final report to follow in four to five weeks.
--- NOTE | 2024-04-25 14:30 | PTCARENOTE ---
No acute changes. CI was 2.6. A fibb on monitor. Heparin gtt resumed at 1215pm at 700units/hr per order then follow protocol. Reinforced use of IS spirometer and acapella useage to facilitate expectoration of mucous
--- NOTE | 2024-04-25 15:37 | CM ---
CM following for DC planning needs.
Met w/ patient at bedside. Spouse/ Jakub and granddtr., Krupa also present.
Reviewed initial assessment. Pt. resides in a private 2 story home w/ spouse and granddtr. Someone is at home with patient at all times. Granddtr. assists PRN.
Plan is for CT Surgery 04/27.
Reviewed pre and post op routines.
Discussed post op MD appointments, Cardiac Rehab and visit from CT Transitional Care RN.
Discussed post op restrictions to include flying, driving, lifting and sternal precautions.
Plan is for CT Surgery 04/27.
DC plan is for home w/ CT Transitional Care RN.
CM to follow.
--- NOTE | 2024-04-25 16:16 | PTCARENOTE ---
Remains oob in chair: noted to now have uncontrolled afibb at times rates into 120's: ct surgery aware: also aware of sbp NIBP cuff pressures in the 90's. New orders received.
[2024-04-25] MEDS: MUCINEX 1200 MG PO (20:16)
--- NOTE | 2024-04-25 21:00 | PTCARENOTE ---
Assumed care of pt from dayshift RN. Walking rounds completed. Pt AAOx3. A-fib on the monitor. HR 100s. Pt has PPM. CVP ~4. PAP 20s/teens. All lines leveled, zeroed, and flushed. BP stable. Palpable pulses throughout. +1 bilateral ankle edema noted.
Pt on RA. POX 94-96%. +Cough. Pt doing breathing exercises independently. Abdomen soft/nontender. +BS. Pt voiding in the bedside commode w/o issue. Right IJ cordis w/ swan CDI. Left upper chest PPM site CDI. Left PIVx1 CDI. Pt assisted out of the
chair and into the bed. See worklist for full nursing assessment and interventions. Call mukherjee within reach.
[2024-04-25] MEDS: ROXICODONE 5 MG PO (22:13)
[2024-04-26] VITALS (23 sets, daily range): BP systolic 94–134; BP diastolic 58–93; BMI 23.4
--- NOTE | 2024-04-26 00:10 | PTCARENOTE ---
No acute changes in assessment. Pt a-fib on the tele monitor. HR 100s. BP stable. [place] intact. CVP ~3. PAP 20s/teens. CI>2. All lines leveled, zeroed, and flushed. Pt on RA. POX 95%. Heparin infusing as ordered. Call mukherjee within reach.
[2024-04-26 01:22] LABS: Hematocrit 31.2 % (37.0-47.0); Hemoglobin 10.5 g/dL (12.0-16.0); Mean Corp Hgb Conc. 33.7 g/dL (33.0-37.0); Mean Corpuscular Hgb 32.7 pg (27.0-31.0); Mean Corpuscular Volume 97.2 fL (81.0-99.0); Mean Platelet Volume 9.9 fL (7.4-10.4); Platelet Count 164 10^3/uL (130-400); Red Blood Cell Count 3.21 10^6/uL (4.20-5.40); Red Cell Dist. Width 12.8 % (11.5-14.5)
[2024-04-26 01:36] LABS: APTT 80.9 Sec (23.4-35.0)
--- NOTE | 2024-04-26 06:40 | PTCARENOTE ---
No acute changes in assessment. Pt A-fib on the tele monitor. HR 90-100s. BP stable. [place] intact. All lines leveled, zeroed, and flushed. Pt on RA. POX 95%. Ordered labs drawn and sent. Cordis/swan dressing changed. Pt repositioned in bed. No c/o
pain at this time. Call mukherjee within reach.
[2024-04-26 06:42] LABS: APTT 99.4 Sec (23.4-35.0)
[2024-04-26 07:17] LABS: Blood Urea Nitrogen 43 mg/dl (7-17); Carbon Dioxide 25 mmol/L (22-30); Chloride 99 mmol/L (98-107); Estimated Creatinine Clearance 27 ml/min; Glucose 173 mg/dl (70-99); Potassium 4.3 mmol/L (3.5-5.1); Sodium 136 mmol/L (135-145); eGFR 41.57
[2024-04-26 07:31] LABS: Magnesium 1.7 mg/dl (1.6-2.3)
[2024-04-26] MEDS: DUONEB 3 ML INH ×3 (07:32→19:51)
[2024-04-26] MEDS: NORVASC 2.5 MG PO (07:32)
[2024-04-26] MEDS: PULMICORT 0.5 MG INH ×2 (07:32→19:51)
[2024-04-26] MEDS: CRESTOR 20 MG PO (07:32)
[2024-04-26] MEDS: MUCINEX 1200 MG PO ×2 (07:33→20:14)
--- NOTE | 2024-04-26 08:05 | PTCARENOTE ---
Assumed care of patient at 0700. Pt is awake, alert, and oriented. No complaints of pain. Pt remains Afib with HR 90's. BP 117/74 MAP 86, PA 36/20, CVP 14, CO 4.90, CI 4.12. Pt with +1 LE edema. Pulse oximetry 98% on room air. Tolerating PO diet.
Voiding in bedside commode without issue. Left chest wall steri-strips in place from PPM placement from [place] admission. Right IJ cordis in place with KVO. Right IJ swan[place] catheter in place at 55cm. Remains on heparin gtt at 900 units/hr.
[2024-04-26] MEDS: MAGNESIUM SULFATE 50 IV (09:52)
--- NOTE | 2024-04-26 11:35 | W.PN.CARDCBS ---
Today's Communication / Plan
-
Okay to proceed with plan surgery 04/27/2024
[address] reviewed with CT surgery
Impression / Plan
-
PCP: Dr. Hiren Gamino
Cardiology: Dr. Knox
Impression:
Direct admission for planned MVR, TVR, MAZE and DUSTIN clip on 04/27/24
Severe MR by GABRIELA 03/27/24
Moderate TR
Persistent Afib
Chronic Eliquis OAC, last dose 04/23/24 AM
HTN
Former smoker
abnormal chest CT 04/24/24, s/p bronch 04/25/24 showing no endobrachial lesions
Nonobstructive CAD by cath at 05/04/23
RBBB
LAFB
h/o 2:1 AV block at time of cath 04/2023
CKD 3b
GABRIELA 03/27/2024: EF 60 to 65%, normal regional wall motion, severe mitral valve prolapse at predominantly P2 with a likely torn cord, eccentric jet of severe MR with peak E wave velocity 1.3M/S, mean gradient 2 mmHg, mild aortic regurgitation,
moderate TR
RHC 04/24/24: RA 11, PA 34/22, PCWP 21, CO/CI: 2.7/1.7, [place] remains in place
bronch 04/25/24 (performed due to abnl chest CT showing near complete collapse of LLL, concern for obstructing mass): no endobrachial lesions, + thick secretions, lavage w/ removal of mucous plugs and secretions
Plan:
-Patient electively admitted 04/24/24 for planned MVR, TVR, MAZE and DUSTIN clip on 04/27/24 for severe MR, moderate TR and persistent Afib.
-Patient feels much better today following bronchoscopy
-Hemodynamics relatively stable with [place] catheter monitoring
-Okay to proceed with planned surgery tomorrow
-Persistent rate controlled atrial fibrillation.
-Continue IV heparin drip in anticipation of surgery
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
Subjective
Date of Service: April 26, 2024
Patient seen and examined. Out of bed to chair and states breathing is much better. No dizziness or lightheadedness. No chest pain or pressure.
Objective
Labs:
04/26/24 01:12
04/26/24 06:23
Labs
Hgb 10.5 g/dL (12.0-16.0) L 04/26/24 01:12
Hct 31.2 % (37.0-47.0) L 04/26/24 01:12
Plt Count 164 10^3/uL (130-400) 04/26/24 01:12
PT 15.2 Sec (11.4-14.6) H 04/24/24 10:02
INR 1.21 04/24/24 10:02
APTT 99.4 Sec (23.4-35.0) H 04/26/24 06:23
Sodium 136 mmol/L (135-145) 04/26/24 06:23
Potassium 4.3 mmol/L (3.5-5.1) 04/26/24 06:23
BUN 43 mg/dl (7-17) H 04/26/24 06:23
Creatinine 1.3 mg/dL (0.6-1.0) H 04/26/24 06:23
Glucose 173 mg/dl (70-99) H 04/26/24 06:23
Vital Signs and I&O:
Vital Signs
Temp Pulse Resp BP Pulse Ox
97.8 F 101 20 117/74 96
04/26/24 07:30 04/26/24 09:10 04/26/24 09:10 04/26/24 08:02 04/26/24 11:28
Vital Signs
Temp Pulse Resp BP Pulse Ox
97.8 F 101 20 117/74 96
04/26/24 07:30 04/26/24 09:10 04/26/24 09:10 04/26/24 08:02 04/26/24 11:28
Intake & Output
04/24/24 04/25/24 04/26/24 04/27/24
06:59 06:59 06:59 06:59
Intake Total 482 / 482 1117 / 1176 175 / 175
Output Total 175 / 175 950 / 1200 250 / 250
Balance 307 / 307 167 / -24 -75 / -75
Physical Exam
Physical Exam
GEN: No distress, awake, Ox3
HEENT: supple, anicteric, mmm
LUNGS: CTA, no wheezes/rales, BS coarse. +SGC
CV: irrge, irreg S1/S2, 2/6 syst LSB, 3/6 systolic murmur apex
ABD: soft, BS+, NT/ND
EXT: No edema
--- NOTE | 2024-04-26 12:14 | CM ---
CM following for DC planning needs.
Plan is for CT Surgery on 04/27.
DC plan is for home w/ CT Transitional Care RN.
CM will cont. to follow.
--- NOTE | 2024-04-26 12:54 | PTCARENOTE ---
Spoke with CT surgery team, left chest PPM steri strips removed. PPM site with small incision well approximated and ANGELICA. Pt remains Afib with HR 106, PA 36/17, CVP 10, CO 4.34, CI 2.76. Pulse oximetry 97% on room air. Pt OOB in chair for the morning.
--- NOTE | 2024-04-26 15:20 | W.PN.PUL3 ---
Today's Communication / Plan
-
Continue with current care
Okay to proceed with proposed cardiac surgery tomorrow
Will continue to follow
Assessment
-
78-year-old woman with history of COPD, former smoker who quit longer than 10 years ago, history of mitral valve disease. Electively admitted for proposed surgery on 04/27/2024. Reports recently admitted to the hospital with bronchitis completed
antibiotic therapy. Has persistent cough and difficulty expectorating. CT chest in preparation for surgery demonstrated left lower lobe atelectasis. We were consulted for evaluation of that.
Abnormal CT chest: Left lower lobe atelectasis on CAT scan.
Status post bronchoscopy 04/25/2024: No evidence for endobronchial lesion. Tenacious secretions.
Direct admission for MVR, TVR, maze and L DUSTIN clip on 04/27/[address] Gomez.
COPD-not on exacerbation
Not on inhalers in the outpatient setting
Conditions present prior admission:
Hypertension
Former smoker-quit at least 10 years ago
Nonobstructive coronary artery disease on cardiac catheterization 04/2023
RBBB
History of 2: 1 AV block
Chronic kidney disease stage IIIb
Persistent atrial fibrillation
Plan and recommendations:
CT chest reviewed, Near complete collapse of the left lower lobe, there is concerns for obstructing mass resulting on left lower lobe collapse. There is a small loculated pleural effusion on the left. Patient is a former smoker.
No prior imaging to review.
Status post bronchoscopy 04/25/2024:
Report reviewed no evidence for endobronchial lesion. There is bilateral tenacious secretions. Suctioning performed.
Culture with normal respiratory gwendolyn/cytology negative.
-
Patient recently completed full course of antibiotics.
recent admission to [facility] for bronchitis/pneumonia.
-
Today 04/26/2024: Patient states that she feels much better.
Lung exam improved, not bronchospastic, no rhonchi to my examination 04/26/2024 in PM.
She has no new complaints.
Continue with secretion clearance interventions:
Continue Pulmicort twice a day
Continue DuoNebs 3 times a day
Percussion therapy-2-3 times a day
Acapella device-encourage
Incentive spirometry
Mucolytic-continue
No indication for systemic corticosteroids.
-
From my perspective okay to proceed with surgery tomorrow. Discussed with patient and she agrees that she is significantly better from the pulmonary standpoint.
Repeat CT chest with persistent atelectasis. This will need to be followed in the outpatient setting.
-
Continue with cardiac management
For planned surgery on 04/27/2024
-
Will continue to follow

Data reviewed:
Pulmonary function testing 04/24/2024:
Postbronchodilator FVC 2.28 L - 98%
FEV1 1.28 L - 72%
FEV1/FVC ratio 56%
Total lung capacity 4.6 L - 101%
Residual volume 2.35 L - 114%
RV/TLC ratio 51%
Diffusion capacity 8.79-51%
Summary: Moderate airflow obstruction with air trapping. Moderately decreased diffusion capacity. Consistent with moderate COPD.
-
GABRIELA 03/27/2024: EF 60 to 65%, normal regional wall motion, severe mitral valve prolapse at predominantly P2 with a likely torn cord, eccentric jet of severe MR with peak E wave velocity 1.3M/S, mean gradient 2 mmHg, mild aortic regurgitation,
moderate TR.
-
noncontrast CT chest 04/24/2024:
There is near complete collapse of the left lower lobe of the lung. Concern is raised for an obstructing mass in the superior aspect of the left lower lobe.
Consider further evaluation with contrast-enhanced CT of the chest.
Subjective Data
-
Date of Service:
Date of Service: April 26, 2024
Chief Complaint: Pulmonary Follow Up (Abnormal CT chest-COPD)
Subjective:
Patient feels much better
Lungs not congested anymore
Less coughing
Denies increased shortness of breath
Denies hemoptysis
Review of Systems
Cardiopulmonary: Dyspnea (Improved), Cough (Improved) and Sputum Production (Minimal)
GI: Abdominal Pain (n) and Nausea
Neuro: Headache (n)
Objective Data
Data Reviewed
Vital Signs / I&O / Oxygen:
Vital Signs
Temp Pulse Resp BP Pulse Ox
97.9 F 103 16 124/67 97
04/26/24 12:00 04/26/24 13:40 04/26/24 13:40 04/26/24 13:00 04/26/24 12:00
Intake and Output
04/25/24 04/26/24 04/27/24
06:59 06:59 06:59
Intake Total 482 / 482 1117 / 1176 263 / 263
Output Total 175 / 175 950 / 1200 650 / 650
Balance 307 / 307 167 / -24 -387 / -387
SaO2 97
Physical Exam
General: Comfortable
HEENT: Normocephalic
Cardiovascular: S1-S2
Respiratory: Clear and Accessory Resp Muscle Use
GI: Soft and Normal Bowel Sounds
Neurology: Awake, Alert, AO x 3 and No Motor Deficits
Skin: Warm
Labs/Micro/Reports
Lab Data
04/26/24 01:12
04/26/24 06:23
Laboratory Results
04/25/24 04/26/24 04/26/24
18:20 01:12 06:23
APTT 41.0 H 80.9 H 99.4 H
Microbiology
04/25/24 11:16 Bronch Left Lower Lobe Respiratory Culture - Preliminary
Usual Respiratory Gwendolyn
04/25/24 11:16 Bronch Left Lower Lobe Gram Stain - Preliminary
04/25/24 11:17 Bronch Right Middle Lobe Respiratory Culture - Preliminary
Usual Respiratory Gwendolyn
04/25/24 11:17 Bronch Right Middle Lobe Gram Stain - Preliminary
04/25/24 11:17 Bronch Right Middle Lobe Fungal Culture - Preliminary
Culture in progress.
Positive cultures are reported as soon as detected.
Final report to follow in four to five weeks.
04/25/24 11:16 Bronch Left Lower Lobe Fungal Culture - Preliminary
Culture in progress.
Positive cultures are reported as soon as detected.
Final report to follow in four to five weeks.
[2024-04-26] MEDS: HEPARIN 25000 UNITS/250 ML IV (16:11)
--- NOTE | 2024-04-26 17:00 | PTCARENOTE ---
Pt with no changes in assessment. Pt remains Afib with HR 90's-103. BP 117/79 MAP 90. PA 35/19, CVP 10. CO 4.54, CI 2.89.
--- NOTE | 2024-04-26 19:00 | PTCARENOTE ---
report received from previous RN, walking rounds done. pt in chair, AAOx4, family at bedside. pt denies any pain at this time. VSS. AFIB on monitor, HR 80s-100s. B/L radial and DP pulses palpable. heart tones clear. RIJ cordis + swan intact w KVOs
infusing. PAPs 20s/10s. CVP ~ 7. Heparin gtt infusing @ 900 units per protocol. B/L breath sounds present. POX 93% on room air. CDB encouraged. bowel sounds audible. pt voids in urinal without difficulty. skin CDI. see worklist for full assessment,
VS, and interventions. pt resting comfortably.
--- NOTE | 2024-04-26 20:39 | W.PN.ANS.POP ---
Anesthesia Post Operative
- Anesthesia Post Op Note
Vital Signs Stable-See Nursing Note: Yes
Airway Patent: Yes
Adequate Pain Control: Yes
Change in Mental Status: No
Current Postoperative Nausea & Vomiting: No
Anesthesia Complications: No
General Anesthetic Recall: No
Unplanned Admission: No
Post Op Hydration Adequate: Yes
--- NOTE | 2024-04-26 23:00 | PTCARENOTE ---
no changes in assessment, pt VSS. AFIB. POX 93% on room air. CI >2. clip prep done. bed bath given with CHG surgical soap.
[2024-04-27] VITALS (21 sets, daily range): BP systolic 91–129; BP diastolic 56–86; BMI 23.3
[2024-04-27] MEDS: PROTONIX 40 MG PO (05:20)
[2024-04-27] MEDS: MAGNESIUM OXIDE 500 MG PO (05:20)
[2024-04-27] MEDS: LOPRESSOR 25 MG PO (05:20)
[2024-04-27] MEDS: BACTROBAN 2% OINTMENT 1 APPLIC NASAL ×2 (05:24→20:23)
--- NOTE | 2024-04-27 05:30 | PTCARENOTE ---
Addendum entered by Elvi Fisher RN 04/27/24 05:57:
pre-op meds given.
Original Note:
pt VSS, no changes in assessment. AFIB. POX 95% on room air. CI >2. AM labs drawn and sent. 2nd bed bath given with CHG surgical soap. CHG cloths done. weight obtained. pt resting between care.
[2024-04-27 05:48] LABS: Hematocrit 30.1 % (37.0-47.0); Hemoglobin 10.2 g/dL (12.0-16.0); Mean Corp Hgb Conc. 33.9 g/dL (33.0-37.0); Mean Corpuscular Hgb 32.8 pg (27.0-31.0); Mean Corpuscular Volume 96.8 fL (81.0-99.0); Mean Platelet Volume 9.9 fL (7.4-10.4); Platelet Count 154 10^3/uL (130-400); Red Blood Cell Count 3.11 10^6/uL (4.20-5.40); Red Cell Dist. Width 13.2 % (11.5-14.5); White Blood Cell Count 9.4 10^3/uL (4.8-10.8)
[2024-04-27 05:56] LABS: APTT 97.9 Sec (23.4-35.0)
--- NOTE | 2024-04-27 06:18 | W.CVOR.SURPR ---
CVOR Surgeon Immed Pre Op
-
I have examined this patient prior to performance of the scheduled procedure.
The patient's condition is unchanged from the time of the dictated/written History and
Physical and the patient is able to undergo the scheduled procedure.
Sternotomy MV repair, TV Repair, MAZE, DUSTIN Clip
[2024-04-27 06:25] LABS: Blood Urea Nitrogen 34 mg/dl (7-17); Calcium 10.3 mg/dl (8.4-10.2); Carbon Dioxide 25 mmol/L (22-30); Chloride 100 mmol/L (98-107); Estimated Creatinine Clearance 30 ml/min; Glucose 93 mg/dl (70-99); Magnesium 2.2 mg/dl (1.6-2.3); Potassium 4.3 mmol/L (3.5-5.1); Sodium 136 mmol/L (135-145); eGFR 45.76
[2024-04-27 07:08] LABS: ACT+ - POC 98 Seconds (82-134)
[2024-04-27] MEDS: DUONEB INH (07:28)
[2024-04-27] MEDS: PULMICORT INH (07:28)
[2024-04-27 07:33] LABS: Urine Albumin Trace (Neg - Trace); Urine Bilirubin Negative (Negative); Urine Character Clear (Clear); Urine Color Yellow; Urine Glucose Negative (Negative); Urine Ketone Negative (Negative); Urine Leukocyte Negative (Negative); Urine Nitrite Negative (Negative); Urine Occult Blood Negative (Negative); Urine Urobilinogen Negative (Neg - 1+)
[2024-04-27 08:10] LABS: ACT+ - POC 464 Seconds (82-134)
[2024-04-27 08:37] LABS: B.E. - POC -2.9 mmol/L; Glucose - POC 97 mg/dl (70-99); HCO3 - POC 24 mmol/L (21-29); Hematocrit - POC 30 % PCV (37-47); Hemodilution- POC Yes; Hemoglobin Calculated - POC 10.2; PCO2 - POC 47 mmHg (35-45); PO2 - POC 520 mmHg (80-100); POC Comment PRE; Potassium - POC 4.1 mmol/L (3.6-5.0); Sodium - POC 136 mmol/L (135-145); pH - POC 7.31 (7.35-7.45)
[2024-04-27 08:47] LABS: ACT+ - POC 489 Seconds (82-134)
--- NOTE | 2024-04-27 08:52 | CM ---
Reviewed chart. Mrs. Pimentel is in the operating room today. Prior to admission she reside with her spouse and granddaughter in a two story home with one step to enter. Medical work-up in progress. The discharge plan is to return home with her spouse
and granddaughter with a home visit by the Cardiothoracic Transitional Care Nurse when medically stable.
[2024-04-27 09:07] LABS: B.E. - POC 3.3 mmol/L; Glucose - POC 113 mg/dl (70-99); HCO3 - POC 27 mmol/L (21-29); Hematocrit - POC 21 % PCV (37-47); Hemodilution- POC Yes; Ionized Calcium - POC 1.15 mmol/L (1.12-1.27); O2 Saturation %Calculated-POC 99.9 % (92-96); PCO2 - POC 35 mmHg (35-45); PO2 - POC 227 mmHg (80-100); POC Comment CPB; Potassium - POC 5.2 mmol/L (3.6-5.0); Sodium - POC 134 mmol/L (135-145)
[2024-04-27 09:16] LABS: ACT+ - POC 492 Seconds (82-134)
[2024-04-27 09:38] LABS: B.E. - POC 1.8 mmol/L; Glucose - POC 146 mg/dl (70-99); HCO3 - POC 26 mmol/L (21-29); Hematocrit - POC 24 % PCV (37-47); Hemodilution- POC Yes; Ionized Calcium - POC 1.19 mmol/L (1.12-1.27); O2 Saturation %Calculated-POC 99.9 % (92-96); PCO2 - POC 39 mmHg (35-45); PO2 - POC 288 mmHg (80-100); POC Comment CPB; Potassium - POC 4.9 mmol/L (3.6-5.0); Sodium - POC 136 mmol/L (135-145); pH - POC 7.44 (7.35-7.45)
[2024-04-27 09:49] LABS: ACT+ - POC 495 Seconds (82-134)
[2024-04-27 09:52] LABS: B.E. - POC 1.6 mmol/L; Glucose - POC 136 mg/dl (70-99); HCO3 - POC 26 mmol/L (21-29); Hematocrit - POC 25 % PCV (37-47); Hemodilution- POC Yes; Hemoglobin Calculated - POC 8.6; Ionized Calcium - POC 1.22 mmol/L (1.12-1.27); PCO2 - POC 41 mmHg (35-45); PO2 - POC 395 mmHg (80-100); POC Comment WARM; Potassium - POC 4.3 mmol/L (3.6-5.0); Sodium - POC 138 mmol/L (135-145); pH - POC 7.41 (7.35-7.45)
[2024-04-27 10:00] LABS: B.E. - POC 0.2 mmol/L; Glucose - POC 126 mg/dl (70-99); HCO3 - POC 25 mmol/L (21-29); Hematocrit - POC 27 % PCV (37-47); Hemodilution- POC Yes; Hemoglobin Calculated - POC 9.3; Ionized Calcium - POC 1.22 mmol/L (1.12-1.27); PCO2 - POC 43 mmHg (35-45); PO2 - POC 390 mmHg (80-100); POC Comment WARM; Potassium - POC 4.4 mmol/L (3.6-5.0); Sodium - POC 139 mmol/L (135-145); pH - POC 7.38 (7.35-7.45)
[2024-04-27 10:00] LABS: ACT+ - POC 480 Seconds (82-134)
[2024-04-27 10:28] LABS: ACT+ - POC 115 Seconds (82-134)
--- NOTE | 2024-04-27 11:06 | W.PN.CT.SURG ---
CT Surgery Operative Note
-
CARDIAC SURGERY OPERATIVE REPORT
Preoperative Diagnosis: Degenerative mitral valve disease with severe mitral valve insufficiency, functional tricuspid valve insufficiency, persistent atrial fibrillation
Postoperative Diagnosis: Same
Procedure(s) Performed:
1. Standard sternotomy with aortic and bicaval cannulation
2. Left atrial maze [RF ablation with encompass clamp and cryoablation]
3. Left atrial appendage exclusion [45 mm clip]
4. Complex mitral valve repair [32 mm been anoplasty, triangular resection, Columbia-Jonh cords to P1 and P2, free margin plication, commissuralplasty at A3 P3]
5. Tricuspid valve repair [28 mm band angioplasty]
6. Transesophageal echocardiography
Date of Surgery: 04/27/24
Comorbidities:
1. Degenerative mitral valve insufficiency, secondary to prolapse and flail with multiple torn cords of the P2 segment, type II pathology
2. 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
3. 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
4. Atrial fibrillation
5. Hypertension
6. Right bundle branch block, status post PPM
7. COPD
8. Chronic kidney disease
Attending Surgeon: Owen Gomez MD, MS
Assistants: Berkley Guaman PA-C (present and necessary to speech language pathologist assistant, retraction, suction, exposure, suture management, and wound closure under my direction)
Anesthesiology: Mario Alberto Anderson MD and Shane Martinez CRNA
Scrub and Circulating RNs: Manisha Mendiola, RN, Shane Olivares RN
Meat Processor: Tatianna Schaeffer CCP
Anesthesia: GETA
EBL: per perfusion records
Products: None
CPB Time: 112 minutes
Aortic Cross Clamp Time: 89 minutes
Indication(s) for Procedures: This is an 78-year-old female with known mitral valve insufficiency that had become progressively worse over the last year. The jet character was severely eccentric and secondary to degenerative mitral valve disease
from prolapse and flail segment with multiple torn cords. Her tricuspid valve insufficiency was secondary to annular dilation. Her symptoms include shortness of breath with exertion and fatigue as well as chest pressure. She also has a history of
atrial fibrillation. Multidisciplinary team discussion between her outpatient hospital carrier and myself as well as the patient came to the shared decision making of pursuing mitral valve intervention in the form of surgery as well as tricuspid valve
repair and management of her atrial fibrillation and appendage. Her STS risk was reviewed in the office in detail, and the patient accepted the risks and so we proceeded
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
Tricuspid Valve Description: Annular dilatation, overall normal-appearing leaflets.
Findings: Left ventricular ejection fraction preoperatively was normal at 60% with no significant regional wall motion abnormalities. Following surgery EF remained the same at 60% with no new regional wall motion abnormalities. She had severe
degenerative mitral valve insufficiency secondary to prolapse of P1 into P2 with multiple torn cords of P2. The jet was eccentric directed towards the anterior leaflet. Contrast with valve annular dilatation and mostly central jet that appeared to
be moderate under anesthesia. The mitral valve was repaired using a 32 mm band annuloplasty size to the anterior leaflet. A total of 10 nonpledgeted 2 Ethibond sutures were used to secure the ring in place with core knots. The P2 segment that had
multiple torn cords resected. This was then primarily repaired with multiple 5-0 Prolene's in an interrupted fashion. There were large cleft between P1 and P2 as well as P2 and P3. The free margin between P1 and P2 and P2 and P3 were then
reapproximated with 5-0 Prolene's. 2 pairs of Columbia-Jonh cords were then placed 1 to the anterior lateral papillary muscle head and the other to the posterior medial papillary muscle head reinforcing the P2 and P1 segments. Dynamic saline inflation
the left ventricle demonstrated a good posterior coaptation margin however there was some bowing and prolapse at the posterior medial commissure. A commissural plasty was then performed using 5-0 Prolene in a [id number] suture at the A3 P3
margin. This resulted in no residual insufficiency on LV inflation. The tricuspid valve was repaired with a total of 9 nonpledgeted 2 Ethibond sutures from the anterior septal commissure to the midportion of the septal leaflet. The ventricular
lead was then pinned down at the septal and posterior leaflet commissure between the annular sutures. Left atrial appendage was verified to be free of any thrombus or debris preoperatively and found to be totally occlusive postoperatively with a 45
mm clip applied flush to the base. A full left atrial maze was performed after arresting the heart, the left atrial appendage was incised at the tip and a left atrial appendage line was performed down to the posterior RF ablation margin followed by
application of the clip. Cryo was used to perform the coronary sinus and mitral lines. After, off cardiopulmonary bypass, the mitral valve had no residual insufficiency, a mean gradient of 3 across the valve, and no systolic anterior motion of the
leaflets. There was a mild degree of residual tricuspid valve insufficiency but this was acceptable and left alone. She was placed on 5 to be mean coming off of cardiopulmonary bypass anticipating that she may need some inotropic support. She was
hemodynamically stable and mixed venous gases were in the 70s for saturation. Unfortunately her Dallas had to be moved north for the scratch valve repair and had difficulty in replacing it into the pulm artery. Did not require blood products, she
was in sinus rhythm with intermittent ventricular pacing.
Ablation Lines:
1. Box lesion to posterior LA wall
2. DUSTIN lesion + DUSTIN Exclusion + Division of Ligament of Benji
3. Coronary sinus lesion
4. Posterior mitral annular line toward P2/P3
Specimen(s): P2 scallop resected.
Prosthesis:
1. 32 mm physio flex annuloplasty band, serial #[id number]
2. 28 mm triad Medtronic tricuspid band, serial number [id number]
3. 45 mm left atrial appendage clip, serial #[id number]
4. 2 pairs of CV 4 Columbia-Jonh cords
Description of Procedure: The patient was taken to the operating room. Their identity and procedure to be performed were verified and they were positioned supine on the operating table. Induction via general anesthesia with endotracheal intubation
was performed and central venous access and arterial monitoring were inserted. A preoperative transesophageal echocardiogram was performed to assess cardiac function and valvular function. The patient was then prepped and draped from chin to feet in
a sterile fashion. A preoperative time-out was performed with all members of the team present. A midline chest incision was performed along with median sternotomy. The innominate vein was isolated. Full heparinization was given (a total of 34,000
units). We created a pericardial well. The aortic cannulation site was chosen where it was soft, pliable, and free of calcium. Cannulation was performed with an arterial cannula in the ascending aorta, angled metal tip cannular in the superior vena
cava and straight bendable cannula in the inferior vena cava. The arterial cannula line had an appropriate bounce and correlating pressures. Next, a root vent/antegrade cannula was inserted into the ascending aorta. The ACT was confirmed to be over
400 and retrograde autologous priming was performed before commencing cardiopulmonary bypass. The superior vena cava was dissected free of the right pulmonary artery. The oblique sinus was then developed bluntly. The encompass clamp was then
placed across the transverse sinus and oblique sinus and 3 successful pairs of ablation were performed isolating the posterior wall. The pulmonary artery was away from the aorta to facilitate a clamp site. Sondergaard�s groove was
developed after creating the oblique sinus. The aortic cross-clamp was placed after decreasing the flow on the bypass and mean arterial pressure. A total of 1.2L initial dose of antegrade Del-Nido cardioplegia solution was given and planned for
re-dosing every 75 minutes as necessary. There was rapid electro-mechanical arrest of the heart at 380-400 cc of cardioplegia. The left ventricle was observed for distention on echocardiogram and manual palpation. Cold slush was placed into a lap on
the RV and we systemically cooled to 34 degrees centigrade. Once the heart was fully arrested and decompressed by the root vent, he was medialized and the tip in the left atrial pannus was then resected. The encompass clamp was then passed down
through the left atrial appendage onto the previous RF ablation line at the left superior pulmonary vein. 2 successful pairs of ablation were then performed. Next the left atrial appendage clip was applied flush to the base.
Carbon dioxide was used to flood the field. The mitral valve was accessed via the left atrium followed by valve analysis. The coronary sinus lesion was then performed towards the P2 P3 annular segment of the mitral valve. Additional annular mitral
ablation line was also performed with cryo. While this was being done, the flail segment of P2 was resected and the mitral valve was repaired as described above. The left ventricular vent was repositioned across the mitral valve into the left
ventricular and the left atrium was closed with a 3-0 prolene.
I then isolated the SVC and IVC. While the heart was still arrested, I opened the right atrium longitudinally. I took care not to dislodge the right atrial lead that was placed recently. The Dallas had to be removed in order to perform the surgery
unobstructed, annular sutures were placed starting at the mid-portion of the septal leaflet avoiding the AV node and working counter-clockwise toward the anteroseptal leaflet commissure. The tricuspid valve was repaired as described above and the
swan was manually replaced into the RV. With the SVC and IVC isolated, the patient was placed into steep Trendelenburg. Flows on the bypass machine were lowered and the clamp was removed after turning on both the root vent and LV vent to high.
The RA suture line was closed in two layers with 5-0 prolene in a running fashion.
De-airing maneuvers were performed. The left atrial suture line was hemostatic after the LV vent was removed. We then came down on cardiopulmonary bypass and assessed the mitral valve transesophageal echocardiography revealed no evidence of
systolic anterior motion and ventricular function was normal. Once we were off cardiopulmonary bypass, the venous cannulas was clamped and removed sequentially. A test dose of protamine was administered and the patient was monitored for any adverse
reaction before resuming protamine. Once half of the protamine dose was delivered, pump suckers were turned off and the systolic blood pressure was lowered for aortic decannulation. The aortic cannula was removed and purse strings were tied down.
All cannulation sites were oversewn with a 4-0 prolene. Additional pledget repair sutures were placed at the antegrade site as her tissue was very thin and friable. The left atrial suture line was inspected and hemostasis was confirmed.
Mediastinal hemostasis was obtained. Two #24 José drains were placed within the pericardium. The sternum was approximated with 4 #7 single and 3 #8 double stainless steel wires. Fascia was approximated with #1 vicryl suture. The subcutaneous,
dermis and epidermis were closed in layers in a running fashion. The skin wound was cleansed and dressed.
All instrument, sponge, and needle counts were confirmed to be correct x 2 at the end of the operation. The patient was transferred to the cardiac intensive care unit in critical but stable condition.
I, Dr. Owen Gomez, was present, scrubbed for, and performed all critical elements of this procedure.
Owen Gomez MD, MS
Cardiothoracic Surgeon
[facility]
This dictation was created using the [employer] dictation system. Please excuse any grammatical, typographical, or 'sound alike' errors
--- NOTE | 2024-04-27 11:30 | PTCARENOTE ---
Patient received from CVOR at 1122. Intubated and sedated. RIJ Cordis/Buxton [place] present @ 55. Lines leveled and zeroed. Inappropriate waveform on monitor, COIN WRAPPING MACHINE OPERATOR and cards at bedside; Buxton refloated to 50, CXR to confirm placement, waveform tracing
subsequently appropriate; patient AV paced with permanent pacemaker, rates 70's. [employer] pacemaker rep at bedside, pacer interrogated and adjusted to DDD @ a rate of 70. Palpables radial and DP pulses, no edema. ET tube 8.0 21@ R lip; placed on
vent, SIMV 14/550/5/5/60; mediastinal CTx2, no air leak, tidaling, or crepitus appreciated; dressing CDI, lungs clear; hypoactive BS, abdomen round and soft; Crenshaw catheter in place draining clear, yellow urine. Midsternal chest incision BRANDING MACHINE OPERATOR with
Dermabond, CDI, some ecchymosis/local erythema. PIV 18 g x1 in LAC, L radial art line. On Precedex, dobutamine, insulin held in OR and restarted per protocol, Levophed held on arrival to CVICU. Labs drawn, EKG performed, Kasey hugger applied. See
worklist for additional details and nursing interventions.
[2024-04-27 11:33] LABS: Glucose - Point of Care 117 mg/dl (70-99)
[2024-04-27 11:38] LABS: Mixed Venous O2 Saturation 80.5 %
[2024-04-27 11:40] LABS: Ionized Calcium 1.43 mMOL/L (1.15-1.33); O2 Saturation % 99.8 % (94-98); PCO2 38 mmHg (32-35); PO2 244 mmHg (83-108); Potassium 4.8 mMOL/L (3.5-5.1); Sodium 133 mMOL/L (136-145); pH 7.37 (7.35-7.45)
[2024-04-27 11:50] LABS: INR 1.51
[2024-04-27 11:51] LABS: APTT 29.4 Sec (23.4-35.0)
[2024-04-27 11:53] LABS: Hemoglobin 8.8 g/dL (12.0-16.0); Platelet Count 104 10^3/uL (130-400)
[2024-04-27 11:56] LABS: Blood Urea Nitrogen 30 mg/dl (7-17); Estimated Creatinine Clearance 32 ml/min; Glucose 112 mg/dl (70-99); Magnesium 2.8 mg/dl (1.6-2.3)
[2024-04-27] MEDS: ANCEF 10 IV (12:01)
[2024-04-27] MEDS: MUCINEX PO ×2 (12:01→20:23)
[2024-04-27] MEDS: CRESTOR PO (12:01)
[2024-04-27] MEDS: NEURONTIN PO ×2 (12:01→15:53)
[2024-04-27] MEDS: NSS 500 IV (12:02)
[2024-04-27] MEDS: NORVASC PO (12:04)
[2024-04-27 12:18] LABS: Glucose - Point of Care 130 mg/dl (70-99)
--- NOTE | 2024-04-27 12:29 | W.PN.CARDCBS ---
Addendum entered and electronically signed by Niesha Ray DO 04/27/24 13:25:
I saw and examined the patient.
The Transition Lead's note was reviewed and I agree with the note.
Comment: Patient seen and examined immediately postop. Patient intubated and sedated. Operative report and postop EKG reviewed
GEN: Intubated sedated immediately postop
HEENT: supple, mmm
LUNGS: CTA B/L, no wheezes/rales
CV: Reg, S1/S2, no murmur. Positive chest tube. Pacer site intact
ABD: soft, BS+, NT/ND
EXT: No edema
NEURO: sedated
SKIN: Sternotomy incision c/d/i
Plan:
Status post Complex mitral valve repair [32 mm been anoplasty, triangular resection, Barclay-Jonh cords to P1 and P2, free margin plication, commissuralplasty at A3 P3], Tricuspid valve repair [28 mm band angioplasty], left atrial appendage excision
with 45 mm clip, left atrial maze/RF ablation with Dr. Gomez 04/27/2024
-Intubated and sedated with plan to wean and hopefully extubate later today
-AV paced rhythm in the 70s with plan for [employer] to interrogate device later today
-On dobutamine drip at 5 with CI 1.97
-Monitor urine output/hemodynamics closely
-Supportive postop care
Original Note:
Today's Communication / Plan
-
continue post op care
av paced
Impression / Plan
-
PCP: Dr. Hiren Gamino
Cardiology: Dr. Knox
Impression:
Status post complex mitral valve repair, tricuspid valve repair, left atrial maze and DUSTIN clip 04/27/24
Severe MR by GABRIELA 03/27/24
Moderate TR
Persistent Afib
Chronic Eliquis OAC, last dose 04/23/24 AM
HTN
Former smoker
abnormal chest CT 04/24/24, s/p bronch 04/25/24 showing no endobrachial lesions
Nonobstructive CAD by cath at 05/04/23
RBBB
LAFB
h/o 2:1 AV block at time of cath 04/2023
CKD 3b
GABRIELA 03/27/2024: EF 60 to 65%, normal regional wall motion, severe mitral valve prolapse at predominantly P2 with a likely torn cord, eccentric jet of severe MR with peak E wave velocity 1.3M/S, mean gradient 2 mmHg, mild aortic regurgitation,
moderate TR
RHC 04/24/24: RA 11, PA 34/22, PCWP 21, CO/CI: 2.7/1.7, [place] remains in place
bronch 04/25/24 (performed due to abnl chest CT showing near complete collapse of LLL, concern for obstructing mass): no endobrachial lesions, + thick secretions, lavage w/ removal of mucous plugs and secretions
Plan:
-Status post complex mitral valve repair, tricuspid valve repair, left atrial maze and DUSTIN clip 04/27/24
-intubated, sedated
-in av paced rhythm @70
-CI 1.97
-on dobutamine @5, insulin @2.6, wean as able
-hgb 8.8, follow
-resume OAC when ok per surgery
-prior to admission was on amlodipine 2.5mg daily, ramipril 5mg daily.
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
Subjective
Date of Service: April 27, 2024
intubated, sedated
Objective
Labs:
04/27/24 11:17
Labs
Hgb 8.8 g/dL (12.0-16.0) L 04/27/24 11:17
Hct 26.0 % (37.0-47.0) L 04/27/24 11:17
Plt Count 104 10^3/uL (130-400) L D 04/27/24 11:17
PT 18.0 Sec (11.4-14.6) H 04/27/24 11:17
INR 1.51 04/27/24 11:17
APTT 29.4 Sec (23.4-35.0) 04/27/24 11:17
Sodium 136 mmol/L (135-145) 04/27/24 05:23
Potassium 4.3 mmol/L (3.5-5.1) 04/27/24 05:23
BUN 30 mg/dl (7-17) H 04/27/24 11:17
Creatinine 1.1 mg/dL (0.6-1.0) H 04/27/24 11:17
Glucose 112 mg/dl (70-99) H 04/27/24 11:17
Vital Signs and I&O:
Vital Signs
Temp Pulse Resp BP Pulse Ox
97.5 F 72 14 114/72 100
04/27/24 12:00 04/27/24 12:05 04/27/24 12:05 04/27/24 12:00 04/27/24 12:00
Vital Signs
Temp Pulse Resp BP Pulse Ox
97.5 F 72 14 114/72 100
04/27/24 12:00 04/27/24 12:05 04/27/24 12:05 04/27/24 12:00 04/27/24 12:00
Intake & Output
04/25/24 04/26/24 04/27/24 04/28/24
07:59 07:59 07:59 07:59
Intake Total 482 / 482 1176 / 1205 647 / 647 129.7 / 129.7
Output Total 175 / 175 1200 / 1200 1450 / 1450 190 / 190
Balance 307 / 307 -24 / 5 -803 / -803 -60.3 / -60.3
Physical Exam
Physical Exam
GEN: No distress, intubated, sedated. on jaydaagustin watkins
HEENT: supple, mmm
LUNGS: CTA B/L, no wheezes/rales
CV: Reg, S1/S2, no murmur
ABD: soft, BS+, NT/ND
EXT: No cyanosis, clubbing, edema
NEURO: sedated
SKIN: Warm, pink, dry. No rash. Sternotomy incision c/d/i
[2024-04-27 13:18] LABS: Glucose - Point of Care 140 mg/dl (70-99)
--- NOTE | 2024-04-27 13:32 | W.PN.INTV ---
Today's Communication / Plan
Recommendations
Continue mechanical ventilation-spontaneous breathing trial once sedation wears off
Follow chest tube output
Daily chest x-ray
Hopefully extubation later today
Continue nebulizer therapy
Secretion clearance interventions
Assessment
-
78-year-old woman with history of COPD, former smoker who quit longer than 10 years ago, history of mitral valve disease. Electively admitted for proposed surgery on 04/27/2024. Reports recently admitted to the hospital with bronchitis completed
antibiotic therapy. Has persistent cough and difficulty expectorating. CT chest in preparation for surgery demonstrated left lower lobe atelectasis. We were consulted for evaluation of that.
Status post: Complex mitral valve repair, tricuspid valve repair, left atrial appendage excision, left atrial maze procedure 04/27/2024.
Postoperative mechanical ventilation
Postoperative anemia
-
Abnormal CT chest: Left lower lobe atelectasis on CAT scan.
Status post bronchoscopy 04/25/2024: No evidence for endobronchial lesion. Tenacious secretions.
COPD-not on exacerbation
Not on inhalers in the outpatient setting
Conditions present prior admission:
Hypertension
Former smoker-quit at least 10 years ago
Nonobstructive coronary artery disease on cardiac catheterization 04/2023
RBBB
History of 2: 1 AV block
Chronic kidney disease stage IIIb
Persistent atrial fibrillation
Plan and recommendations:
She is doing well postop-currently on mechanical ventilation and appears comfortable.
ABG reviewed:Adequate oxygenation and ventilation
Continue SIMV mode with no change
Spontaneous breathing trial per protocol once sedation wears off.
Anemia noted-no evidence of acute bleeding
Follow H&H serially
Hemodynamics -acceptable, Levophed has been weaned off
Follow renal function and urinary output
PA catheter in place, follow hemodynamic
Chest tube with no excessive drainage-no air leak.
Chest x-ray reviewed: With no pneumothorax or fluid collections.
Remain nothing by mouth
Head of the bed elevation
Glycemic control per protocol
Abnormal CT chest: Near complete collapse of the left lower lobe, there is concerns for obstructing mass resulting on left lower lobe collapse. There is a small loculated pleural effusion on the left. Patient is a former smoker.
Status post bronchoscopy 04/25/2024:
Report reviewed no evidence for endobronchial lesion. There is bilateral tenacious secretions. Suctioning performed.
Cultures negative so far. Cytology neck
Patient recently completed full course of antibiotics.
recent admission to [facility] for bronchitis/pneumonia.
Continue secretion clearance interventions:
Continue Pulmicort twice a day
Continue DuoNebs 3 times a day
Percussion therapy-2-3 times a day
Acapella device-encourage, when able
Mucolytic-continue
Will need outpatient radiographic dyttue-la-ulvsosarmaz will be left in the chart
DVT prophylaxis when safe from the surgical perspective.
Critical care statement: A total of 32 minutes of critical care time was provided for this patient today. This includes management of unstable vital signs, evaluation of the patient at bedside, reviewing the patient's pertinent medical records
including ventilator settings, arterial blood gases, radiographs, microbiology, laboratory evaluations and discussion with primary team, critical care nursing, and respiratory therapy.

Data reviewed:
Pulmonary function testing 04/24/2024:
Postbronchodilator FVC 2.28 L - 98%
FEV1 1.28 L - 72%
FEV1/FVC ratio 56%
Total lung capacity 4.6 L - 101%
Residual volume 2.35 L - 114%
RV/TLC ratio 51%
Diffusion capacity 8.79-51%
Summary: Moderate airflow obstruction with air trapping. Moderately decreased diffusion capacity. Consistent with moderate COPD.
-
GABRIELA 03/27/2024: EF 60 to 65%, normal regional wall motion, severe mitral valve prolapse at predominantly P2 with a likely torn cord, eccentric jet of severe MR with peak E wave velocity 1.3M/S, mean gradient 2 mmHg, mild aortic regurgitation,
moderate TR.
-
noncontrast CT chest 04/24/2024:
There is near complete collapse of the left lower lobe of the lung. Concern is raised for an obstructing mass in the superior aspect of the left lower lobe.
Consider further evaluation with contrast-enhanced CT of the chest.
Subjective Dataa
Subjective Data
Date of Service:
Date of Service: April 27, 2024
Chief Complaint: [employer] Technician Follow Up (Status post mitral valve repair)
Subjective:
Status post cardiothoracic surgery
Intubated mechanical ventilation
Review of Systems
General: Unobtainable - Sedation
Objective Data
Data Reviewed
Vital Signs / I&O / Oxygen:
Vital Signs
Temp Pulse Resp BP Pulse Ox
98.6 F 70 14 121/74 100
04/27/24 13:00 04/27/24 13:15 04/27/24 13:15 04/27/24 13:00 04/27/24 13:15
Intake and Output
04/26/24 04/27/24 04/28/24
06:59 06:59 06:59
Intake Total 1117 / 1176 706 / 706 196.8 / 196.8
Output Total 950 / 1200 1700 / 1700 290 / 290
Balance 167 / -24 -994 / -994 -93.2 / -93.2
SaO2 [SIMV] 100
SaO2 100
Physical Exam
General: Comfortable
HEENT: Normocephalic and Other (ET tube in place without secretions)
Cardiovascular: S1-S2
Respiratory: Clear and Chest Tube (No excessive drainage or air leak)
GI: Soft and Non Distended
Neurology: Other (Sedated on mechanical ventilation)
Skin: Warm
Labs/Micro/Reports
Lab Data
04/27/24 11:17
Laboratory Results
04/27/24 04/27/24
05:23 11:17
PT 18.0 H
INR 1.51
APTT 97.9 H 29.4
pH 7.37
pCO2 38 H
pO2 244 H
HCO3 22.0
O2 Delivery Level
Microbiology
04/25/24 11:17 Bronch Right Middle Lobe Respiratory Culture - Final
Usual Respiratory Lilia
04/25/24 11:17 Bronch Right Middle Lobe Gram Stain - Final
04/25/24 11:16 Bronch Left Lower Lobe Respiratory Culture - Final
Usual Respiratory Lilia
04/25/24 11:16 Bronch Left Lower Lobe Gram Stain - Final
04/25/24 11:17 Bronch Right Middle Lobe Fungal Culture - Preliminary
Culture in progress.
Positive cultures are reported as soon as detected.
Final report to follow in four to five weeks.
04/25/24 11:16 Bronch Left Lower Lobe Fungal Culture - Preliminary
Culture in progress.
Positive cultures are reported as soon as detected.
Final report to follow in four to five weeks.
[2024-04-27 13:39] LABS: B.E. - POC -1.4 mmol/L; Glucose - POC 99 mg/dl (70-99); HCO3 - POC 25 mmol/L (21-29); Hematocrit - POC 26 % PCV (37-47); Hemodilution- POC Yes; Hemoglobin Calculated - POC 8.7; Ionized Calcium - POC 1.38 mmol/L (1.12-1.27); O2 Saturation %Calculated-POC 75.9 % (92-96); PCO2 - POC 47 mmHg (35-45); PO2 - POC 44 mmHg (80-100); POC Comment MIXED VENOUS/POST; Potassium - POC 4.4 mmol/L (3.6-5.0); Sodium - POC 142 mmol/L (135-145); pH - POC 7.33 (7.35-7.45)
--- NOTE | 2024-04-27 13:50 | PTCARENOTE ---
Patient agitated upon awakening, responding to some commands. CPAP attempted momentarily, patient apneic, SIMV restarted. CHG bath done and gown applied.
[2024-04-27 14:08] LABS: Glucose - Point of Care 118 mg/dl (70-99)
[2024-04-27] MEDS: LR 250 ML IV ×3 (14:44→18:20)
[2024-04-27 15:07] LABS: Glucose - Point of Care 93 mg/dl (70-99)
[2024-04-27] MEDS: TYLENOL PO (15:12)
--- NOTE | 2024-04-27 15:30 | PTCARENOTE ---
Patient continues to have periods of overbreathing the ventilator, each episode sustained <1 minute before ventilator assist resumes. Following commands, eye opening to voice x1. Levophed started briefly and held after LR bolus improved BP/MAP.
Assessment of needs ongoing.
[2024-04-27 15:36] LABS: Hematocrit 26.1 % (37.0-47.0); Platelet Count 111 10^3/uL (130-400)
[2024-04-27] MEDS: PACERONE PO (15:53)
[2024-04-27 16:02] LABS: Glucose - Point of Care 122 mg/dl (70-99)
[2024-04-27] MEDS: OFIRMEV 100 IV (16:24)
[2024-04-27] MEDS: ANCEF 5 IV (16:25)
[2024-04-27] MEDS: ASPIRIN 300 MG RECTAL (17:26)
[2024-04-27 18:02] LABS: Glucose - Point of Care 119 mg/dl (70-99)
[2024-04-27 18:08] LABS: B.E. -2.5 mmol/L; HCO3 22.5 mmol/L (21-28); O2 Saturation % 99.6 % (94-98); PCO2 39 mmHg (32-35); PO2 139 mmHg (83-108); Potassium 4.8 mMOL/L (3.5-5.1); Sodium 134 mMOL/L (136-145); pH 7.37 (7.35-7.45)
--- NOTE | 2024-04-27 18:15 | PTCARENOTE ---
Patient extubated to 6LNC, oral suction provided, satting 100%.
[2024-04-27] MEDS: ZOFRAN 4 MG IV (18:22)
--- NOTE | 2024-04-27 18:37 | RESPNOTE ---
Extubated to 6 liter NC without incident 98%
[2024-04-27] MEDS: ALBUMIN 5% 250 IV (19:12)
[2024-04-27] MEDS: VENTOLIN NEBULES 2.5 MG INH (19:28)
[2024-04-27] MEDS: PULMICORT 0.5 MG INH (19:29)
[2024-04-27 20:01] LABS: Glucose - Point of Care 93 mg/dl (70-99)
[2024-04-27] MEDS: SODIUM BICARBONATE 50 MEQ IV (20:23)
[2024-04-27] MEDS: SENOKOT-S PO (20:23)
[2024-04-27] MEDS: REGLAN 10 MG IV (20:35)
--- NOTE | 2024-04-27 20:48 | PTCARENOTE ---
Care of patient continued at 1900. Patient awake and alert, communicating appropriately post extubation. Granddaughter at bedside. C/o some nausea, Zofran given. Levo restarted per protocol, see worklist for details. Albumin added after third LR
bolus and CVP remaining 1-3. Patient sleeping between care, stated she is 'uncomfortable' in her midback area, rated 3/10. NSR RBBB, occasional V paced beats on telemetry. Assessment of needs ongoing.
--- NOTE | 2024-04-27 21:00 | PTCARENOTE ---
Sodium bicarb administered per retail shift leader PA, CVP improved, levo continued.
[2024-04-27] MEDS: NEURONTIN 100 MG PO (21:49)
[2024-04-27] MEDS: TYLENOL 1000 MG PO (21:49)
[2024-04-27 22:10] LABS: Glucose - Point of Care 120 mg/dl (70-99)
[2024-04-27] MEDS: SENOKOT-S 1 TABLET PO (22:15)
[2024-04-27] MEDS: MUCINEX 1200 MG PO (22:15)
[2024-04-27] MEDS: MYLICON 80 MG PO (22:18)
--- NOTE | 2024-04-27 23:09 | PTCARENOTE ---
Linens changed and patient positioned comfortably. Reglan given for continued nausea after Zofran. Patient also given Simethicone for gas pains. Levo continued at 1, MAP 67. Patient reminded to not push up with her arms when shifting in bed. Crenshaw
care completed. Patient sleeping between care, no further needs assessed at this time.
[2024-04-27 23:49] LABS: Glucose - Point of Care 118 mg/dl (70-99)
[2024-04-28] VITALS (36 sets, daily range): BP systolic 79–112; BP diastolic 46–78; BMI 24.5
--- NOTE | 2024-04-28 00:15 | PTCARENOTE ---
Pt assessed at 1999 and 2329. Oriented x 4. Speech clear. Moves all extremities equally x 4. On 4L/NC. Sats 100%. BBS present. Decreased to B bases. Pt with audible heart tones. No murmur. Pt with more frequent PVCs. Ed, PA notified. Levophed gtt at
1 mcg/min turned off at 0011. Pt rhythm variable: A and V paced, occasionally SR. Mediastinal CTs x 2 to -20 cm suction. For pulse and wound assessments, see flowsheets. Pt with PPM to L upper chest. Dobutamine gtt at 1.5 mcg/kg/min. CI done and is
2.66. Belly soft, nontender. Hyperactive BS x 4. Indwelling urinary catheter, draining clear and yellow urine. CT and urine outputs documented q 1 hr. Glycemic protocol maintained. Ongoing plan of care.
--- NOTE | 2024-04-28 00:58 | W.PN.CT ---
Today's Communication / Plan
-
Plan:
-No major issues overnight. Hemodynamically and neurologically intact
-Successfully extubated on 04/27/24 @ 1835
-Weaned of Levophed gtt overnight. Remains dobutamine @ 1.5 mcg/kg/min, and insulin gtt per protocol
-Last CI 2.82, MVO2 78.2%, u/o since OR780 mL
-D/C swan and a-line when off dobutamine
-D/C honeycutt when off dobutamine gtt
-[facility] once dobutamine and insulin gtt
-Monitor chest tube drainage: 2med 175/350
-Monitor h/h 7.9/23.4 for possible transfusion
-Cont. current meds (ASA, Crestor, Amiodarone; held BB last night while on Levophed gtt)
-Maintain cordis
-No temporary PW, has own PPM
-Wean off of O2 as tolerated
-Encourage use of IS
-OOB into chair/Ambulate
Assessment / Plan
-
Assessment:
S/P Standard sternotomy with aortic and bicaval cannulation/Complex mitral valve repair [32 mm been anoplasty, triangular resection, Hustisford-Jonh cords to P1 and P2, free margin plication, commissuralplasty at A3 P3]/Tricuspid valve repair [28 mm band
angioplasty]/Left atrial maze [RF ablation with encompass clamp and cryoablation]/Left atrial appendage exclusion [45 mm clip], by Dr. Gomez, 04/27/24, pod#1
-Degenerative mitral valve insufficiency, secondary to prolapse and flail with multiple torn cords of the P2 segment, type II pathology
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
-Acute on chronic diastolic heart failure with preserved left ventricular ejection fraction with volume overload requiring Lasix outpatient
-LVEF 60-65% per intraop GABRIELA
-Mildly ectatic asc. aorta (4.3 cm)
-Persistent Atrial fibrillation
-Hypertension
-Right bundle branch block/ LAFB status post PPM
-Hx 2:1 HB
-Non-obstructive CAD
-COPD
-Former tobacco use, quit 10 year ago
-Abnormal chest CT 04/24/24 ( Persistent near complete atelectasis of the left lower lobe as above. Bilateral minimal pleural effusions), s/p bronch 04/25/24 showing no endobrachial lesions
-Chronic kidney disease, stage 3b
-Anemia of CKD
-S/P bladder suspension
-S/P appendectomy
-Acute blood loss/Anemia on chronic Anemia (stable without transfusion)
-Acute postop thrombocytopenia (stable without transfusion)
-Acute postop atelectasis
-Acute postop hypovolemia with subsequent hypervolemia
Discussed patient care with: Cardiology, Nursing, Respiratory Therapy, Pharmacy and Care Team
Subjective
Procedure
S/P Standard sternotomy with aortic and bicaval cannulation/Complex mitral valve repair [32 mm been anoplasty, triangular resection, Hustisford-Jonh cords to P1 and P2, free margin plication, commissuralplasty at A3 P3]/Tricuspid valve repair [28 mm band
angioplasty]/Left atrial maze [RF ablation with encompass clamp and cryoablation]/Left atrial appendage exclusion [45 mm clip], by Dr. Gomez, 04/27/24
-
Date of Service: April 28, 2024
Pt c/o incisional pain, otherwise feels well
Objective Data
-
PT 18.0 Sec (11.4-14.6) H 04/27/24 11:17
INR 1.51 04/27/24 11:17
APTT 29.4 Sec (23.4-35.0) 04/27/24 11:17
Vital Signs
Vital Signs
Temp Pulse Resp BP Pulse Ox
97.8 F 78 14 96/63 100
04/28/24 00:00 04/28/24 00:00 04/28/24 00:00 04/28/24 00:00 04/28/24 00:00
CT Intake/Output/Weight
04/27/24 04/27/24 04/28/24
06:59 18:59 06:59
Intake Total 268 / 706 1014.5 / 1830.5 816.0 / 1830.5
Output Total 600 / 1700 675 / 955 280 / 955
Balance -332 / -994 339.5 / 875.5 536.0 / 875.5
SaO2: 98 (2L)
Physical Exam
-
General: Awake, Oriented and AOx3
Cardiovascular: Regular rate & rhythm, No Murmurs, No Rub and No Gallop
Respiratory: Decreased Breath Sounds (at bases, otherwise clear)
Sternum: Stable
Incision: Clean, Dry, Intact and Dressing Intact
Extremities: Other (+trace edema)
Data Reviewed
-
Lab Results: Results Reviewed
Medications: Active Meds Reviewed
Chest X-Ray: Report Reviewed and Image Reviewed
ECG: Report Reviewed and Image Reviewed
[2024-04-28] MEDS: ANCEF 5 IV ×2 (01:16→09:08)
[2024-04-28 01:43] LABS: Glucose - Point of Care 91 mg/dl (70-99)
[2024-04-28 03:58] LABS: Glucose - Point of Care 110 mg/dl (70-99)
[2024-04-28 04:17] LABS: Mixed Venous O2 Saturation 78.7 %
--- NOTE | 2024-04-28 04:23 | PTCARENOTE ---
Labs drawn and sent. CI done x 2: 2.59 and 2.94. Pt sleeping. Awakens to voice easily. Mouth swabbed. Ice chips given. VS and outputs recorded. No c/o pain. Pt going back to sleep.
[2024-04-28 04:28] LABS: Hematocrit 23.4 % (37.0-47.0); Hemoglobin 7.9 g/dL (12.0-16.0); INR 1.18; Mean Corp Hgb Conc. 33.8 g/dL (33.0-37.0); Mean Corpuscular Hgb 32.4 pg (27.0-31.0); Mean Corpuscular Volume 95.9 fL (81.0-99.0); Mean Platelet Volume 10.6 fL (7.4-10.4); PT 14.8 Sec (11.4-14.6); Platelet Count 98 10^3/uL (130-400); Red Blood Cell Count 2.44 10^6/uL (4.20-5.40); Red Cell Dist. Width 13.7 % (11.5-14.5); White Blood Cell Count 14.3 10^3/uL (4.8-10.8)
[2024-04-28 04:45] LABS: Blood Urea Nitrogen 32 mg/dl (7-17); Calcium 10.4 mg/dl (8.4-10.2); Carbon Dioxide 23 mmol/L (22-30); Chloride 105 mmol/L (98-107); Estimated Creatinine Clearance 24 ml/min; Glucose 100 mg/dl (70-99); Magnesium 2.5 mg/dl (1.6-2.3); Potassium 4.1 mmol/L (3.5-5.1); Sodium 139 mmol/L (135-145); eGFR 35.01
[2024-04-28] MEDS: TYLENOL 1000 MG PO ×3 (05:54→21:47)
[2024-04-28 06:06] LABS: Glucose - Point of Care 80 mg/dl (70-99)
--- NOTE | 2024-04-28 07:15 | PTCARENOTE ---
CXR done this am. Repeat CI 2.8. Pt performed IS up to 750 mls, Flutter valve done. Glycemic protocol maintained. Bed weight done and documented. Tylenol 1 GM scheduled given.
[2024-04-28] MEDS: PULMICORT 0.5 MG INH ×2 (07:32→18:11)
[2024-04-28] MEDS: VENTOLIN NEBULES 2.5 MG INH ×2 (07:32→18:11)
--- NOTE | 2024-04-28 08:00 | PTCARENOTE ---
pt received from previous RN, oriented, in bed. SR/AV/V paced on the monitor w/ occasional PVCs, HR 70s. LCW PPM, DDD 70-130. SBP 90-110s. PAP 30-40s/10-20s, CVP ~13. CI >2. Dobutamine gtt off per Dr. Gomez. palpable pulses. pt on 2LNC, 99-100% POX.
lungs diminished in bases. IS encouraged. CTx2, no air leak or crepitus noted. pt abdomen s/n, denies n/v. tolerating clears. Crenshaw in place, clear yellow urine. sternal incision ANGELICA, approximated. chest tube site c/d/i. RIJ cordis/swan maintained.
L radial Radha flushed, zeroed, and calibrated. PIV. insulin gtt running per protocol. see worklist for VS, I&O, and assessment.
[2024-04-28 08:27] LABS: Glucose - Point of Care 106 mg/dl (70-99)
[2024-04-28] MEDS: CRESTOR 20 MG PO (09:07)
[2024-04-28] MEDS: SENOKOT-S 1 TABLET PO ×2 (09:08→20:01)
[2024-04-28] MEDS: MAGNESIUM OXIDE 500 MG PO ×2 (09:08→20:01)
[2024-04-28] MEDS: LIDOCAINE 4% PATCH 1 PATCH TOPICAL (09:08)
[2024-04-28] MEDS: MUCINEX 1200 MG PO ×2 (09:08→20:01)
[2024-04-28] MEDS: PROTONIX 40 MG PO (09:08)
[2024-04-28] MEDS: LOPRESSOR 12.5 MG PO ×2 (09:08→20:01)
[2024-04-28] MEDS: NEURONTIN 100 MG PO ×3 (09:08→21:47)
[2024-04-28] MEDS: BACTROBAN 2% OINTMENT 1 APPLIC NASAL ×2 (09:09→20:01)
[2024-04-28] MEDS: LOW STRENGTH ASPIRIN 81 MG PO (09:09)
--- NOTE | 2024-04-28 09:13 | W.PN.CARDCBS ---
Today's Communication / Plan
-
Pressors to off
DC lines and tubes as you are
Resume oral anticoagulation when safe per CT surgery
Appropriate pacemaker function on telemetry
No objection to transfusion if necessary
Impression / Plan
-
PCP: Dr. Hiren Gamino
Cardiology: Dr. Knox
Impression:
Status post complex mitral valve repair, tricuspid valve repair, left atrial maze and DUSTIN clip 04/27/24
Severe MR by GABRIELA 03/27/24
Moderate TR
Persistent Afib
Chronic Eliquis OAC, last dose 04/23/24 AM
HTN
Former smoker
abnormal chest CT 04/24/24, s/p bronch 04/25/24 showing no endobrachial lesions
Nonobstructive CAD by cath at 05/04/23
RBBB
LAFB
h/o 2:1 AV block at time of cath 04/2023
CKD 3b
GABRIELA 03/27/2024: EF 60 to 65%, normal regional wall motion, severe mitral valve prolapse at predominantly P2 with a likely torn cord, eccentric jet of severe MR with peak E wave velocity 1.3M/S, mean gradient 2 mmHg, mild aortic regurgitation,
moderate TR
RHC 04/24/24: RA 11, PA 34/22, PCWP 21, CO/CI: 2.7/1.7, [place] remains in place
bronch 04/25/24 (performed due to abnl chest CT showing near complete collapse of LLL, concern for obstructing mass): no endobrachial lesions, + thick secretions, lavage w/ removal of mucous plugs and secretions
Plan:
-Status post complex mitral valve repair, tricuspid valve repair, left atrial maze and DUSTIN clip 04/27/24
-Appears to have appropriate pacemaker function on telemetry
-Extubated and overall feels well
-in av paced rhythm @70
-Off of pressor
-Primary team considering a unit of blood which would be reasonable for volume
-resume OAC when ok per surgery
-prior to admission was on amlodipine 2.5mg daily, ramipril 5mg daily.
Will follow with you
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
Subjective
Date of Service: April 28, 2024
Total Time Spent with Patient (in minutes): Feels well
Objective
Labs:
04/28/24 04:06
04/28/24 04:06
Labs
Hgb 7.9 g/dL (12.0-16.0) L 04/28/24 04:06
Hct 23.4 % (37.0-47.0) L 04/28/24 04:06
Plt Count 98 10^3/uL (130-400) L 04/28/24 04:06
PT 14.8 Sec (11.4-14.6) H 04/28/24 04:06
INR 1.18 04/28/24 04:06
APTT 29.4 Sec (23.4-35.0) 04/27/24 11:17
Sodium 139 mmol/L (135-145) 04/28/24 04:06
Potassium 4.1 mmol/L (3.5-5.1) 04/28/24 04:06
BUN 32 mg/dl (7-17) H 04/28/24 04:06
Creatinine 1.5 mg/dL (0.6-1.0) H 04/28/24 04:06
Glucose 100 mg/dl (70-99) H 04/28/24 04:06
Vital Signs and I&O:
Vital Signs
Temp Pulse Resp BP Pulse Ox
98 F 75 17 89/51 99
04/28/24 08:00 04/28/24 08:30 04/28/24 08:30 04/28/24 08:00 04/28/24 08:30
Vital Signs
Temp Pulse Resp BP Pulse Ox
98 F 75 17 89/51 99
04/28/24 08:00 04/28/24 08:30 04/28/24 08:30 04/28/24 08:00 04/28/24 08:30
Intake & Output
04/26/24 04/27/24 04/28/24 04/29/24
06:59 06:59 06:59 06:59
Intake Total 1117 / 1176 706 / 706 2048.2 / 2071.0 73.0 / 73.0
Output Total 950 / 1200 1700 / 1700 1220 / 1265 115 / 115
Balance 167 / -24 -994 / -994 828.2 / 806.0 -42.0 / -42.0
Physical Exam
Physical Exam
�
����Physical Exam
�
���������������������General:��no apparent distress, not acutely ill
�
���������������������������Neck:��supple. no meningeal signs. normal psoterior pharynx
������������������������
���������������������������Heart:��s1/s2 regular rate and rhythm, no murmur. equal radial pulses.
�
��������������������������Lungs: ��no acute respiratory distress. clear bilaterally
�
����������������������Abdomen:�normal bowel sounds. not tender. no CVAT
�
��������������������������Neuro:��alert and oriented. no focal neurological deficits
�
������������������������������Skin: ��no rash
�
�����������������������Psychiatric:�well kept. interactive and cooperative
�
�����������������������Extremities:��no edema. no calf tenderness. negative homans. good distal pulses
�
�
�
��
�
[2024-04-28 09:56] LABS: Glucose - Point of Care 139 mg/dl (70-99)
--- NOTE | 2024-04-28 12:00 | PTCARENOTE ---
pt VSS, no changes in assessment. PA aware of PA hemodynamics. L radial [place] dc'd as ordered, dressing c/d/i. RIJ swan dc'd. insulin gtt dc'd as ordered. honeycutt care performed. honeycutt dc'd as ordered. at bedside.
--- NOTE | 2024-04-28 12:02 | W.PN.INTV ---
Today's Communication / Plan
Recommendations
Continue postoperative care
Continue nebulizers
Acapella device
Percussion therapy
Transfuse as necessary
Increase activity as able
Pulmonary will continue to follow
Assessment
-
78-year-old woman with history of COPD, former smoker who quit longer than 10 years ago, history of mitral valve disease. Electively admitted for proposed surgery on 04/27/2024. Reports recently admitted to the hospital with bronchitis completed
antibiotic therapy. Has persistent cough and difficulty expectorating. CT chest in preparation for surgery demonstrated left lower lobe atelectasis. We were consulted for evaluation of that.
Status post: Complex mitral valve repair, tricuspid valve repair, left atrial appendage excision, left atrial maze procedure 04/27/2024.
Postoperative mechanical ventilation
Postoperative anemia
-
Abnormal CT chest: Left lower lobe atelectasis on CAT scan.
Status post bronchoscopy 04/25/2024: No evidence for endobronchial lesion. Tenacious secretions.
COPD-not on exacerbation
Not on inhalers in the outpatient setting
Conditions present prior admission:
Hypertension
Former smoker-quit at least 10 years ago
Nonobstructive coronary artery disease on cardiac catheterization 04/2023
RBBB
History of 2: 1 AV block
Chronic kidney disease stage IIIb
Persistent atrial fibrillation
Plan and recommendations:
Postoperative day 1
Extubated-on low rate supplemental oxygen
Encourage incentive spirometry
Acapella device
Continue secretion clearance interventions
Increase activity as able
Anemia noted-no evidence of acute bleeding
Follow H&H serially
Transfuse as necessary
Hemodynamics -off vasopressor
Follow renal function and urinary output
Renal function slightly increased creatinine.
Crenshaw urinary output
Hemodynamic monitoring
Transfusion if needed
Hopefully can discontinue PA catheter
Chest tube with no excessive drainage-no air leak.
Chest x-ray reviewed 04/28/2020: With no pneumothorax or fluid collections.
Advance diet as able
Head of the bed elevation
Glycemic control per protocol
Abnormal CT chest: Near complete collapse of the left lower lobe, there is concerns for obstructing mass resulting on left lower lobe collapse. There is a small loculated pleural effusion on the left. Patient is a former smoker.
Status post bronchoscopy 04/25/2024:
Report reviewed no evidence for endobronchial lesion. There is bilateral tenacious secretions. Suctioning performed.
Cultures negative so far. Cytology neck
Patient recently completed full course of antibiotics.
recent admission to [facility] for bronchitis/pneumonia.
Continue secretion clearance interventions:
Continue Pulmicort twice a day
Continue DuoNebs 3 times a day
Percussion therapy-2-3 times a day
Acapella device-encourage, when able
Mucolytic-continue
Will need outpatient radiographic [id number] will be left in the chart
DVT prophylaxis when safe from the surgical perspective.
Pulmonary will follow

Data reviewed:
Pulmonary function testing 04/24/2024:
Postbronchodilator FVC 2.28 L - 98%
FEV1 1.28 L - 72%
FEV1/FVC ratio 56%
Total lung capacity 4.6 L - 101%
Residual volume 2.35 L - 114%
RV/TLC ratio 51%
Diffusion capacity 8.79-51%
Summary: Moderate airflow obstruction with air trapping. Moderately decreased diffusion capacity. Consistent with moderate COPD.
-
GABRIELA 03/27/2024: EF 60 to 65%, normal regional wall motion, severe mitral valve prolapse at predominantly P2 with a likely torn cord, eccentric jet of severe MR with peak E wave velocity 1.3M/S, mean gradient 2 mmHg, mild aortic regurgitation,
moderate TR.
-
noncontrast CT chest 04/24/2024:
There is near complete collapse of the left lower lobe of the lung. Concern is raised for an obstructing mass in the superior aspect of the left lower lobe.
Consider further evaluation with contrast-enhanced CT of the chest.
Subjective Dataa
Subjective Data
Date of Service:
Date of Service: April 28, 2024
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
Subjective:
Extubated
Intermittently coughing
Pain is controlled
Denies nausea or vomiting
Review of Systems
General: Fever (n)
GI: Abdominal Pain (n), Nausea and Vomiting
Neuro: Headache (n) and Dizziness (n)
Objective Data
Data Reviewed
Vital Signs / I&O / Oxygen:
Vital Signs
Temp Pulse Resp BP Pulse Ox
98.1 F 70 15 85/53 99
04/28/24 11:00 04/28/24 11:00 04/28/24 11:00 04/28/24 11:00 04/28/24 11:00
Intake and Output
04/27/24 04/28/24 04/29/24
06:59 06:59 06:59
Intake Total 706 / 706 2048.2 / 2071.0 118.0 / 118.0
Output Total 1700 / 1700 1220 / 1265 215 / 215
Balance -994 / -994 828.2 / 806.0 -97.0 / -97.0
SaO2 [CPAP/PSV] 100
SaO2 [SIMV] 99
SaO2 99
Nasal Cannula flow liters per 2
minute
Physical Exam
General: Comfortable
HEENT: Normocephalic and Other (ET tube in place without secretions)
Cardiovascular: S1-S2
Respiratory: Clear and Chest Tube (No excessive drainage or air leak)
GI: Soft and Non Distended
Neurology: Awake, Alert, Oriented and No Motor Deficits
Skin: Warm
Labs/Micro/Reports
Lab Data
04/28/24 04:06
04/28/24 04:06
Laboratory Results
04/27/24 04/28/24
18:00 04:06
PT 14.8 H
INR 1.18
pH 7.37
pCO2 39 H
pO2 139 H
HCO3 22.5
O2 Delivery Level Not Reportable
Microbiology
04/25/24 11:17 Bronch Right Middle Lobe Acid Fast Bacilli Smear - Preliminary
04/25/24 11:17 Bronch Right Middle Lobe Acid Fast Bacilli Culture - Preliminary
04/25/24 11:17 Bronch Left Lower Lobe Acid Fast Bacilli Smear - Preliminary
04/25/24 11:17 Bronch Left Lower Lobe Acid Fast Bacilli Culture - Preliminary
04/25/24 11:17 Bronch Right Middle Lobe Respiratory Culture - Final
Usual Respiratory Lilia
04/25/24 11:17 Bronch Right Middle Lobe Gram Stain - Final
04/25/24 11:16 Bronch Left Lower Lobe Respiratory Culture - Final
Usual Respiratory Lilia
04/25/24 11:16 Bronch Left Lower Lobe Gram Stain - Final
04/25/24 11:17 Bronch Right Middle Lobe Fungal Culture - Preliminary
Culture in progress.
Positive cultures are reported as soon as detected.
Final report to follow in four to five weeks.
04/25/24 11:16 Bronch Left Lower Lobe Fungal Culture - Preliminary
Culture in progress.
Positive cultures are reported as soon as detected.
Final report to follow in four to five weeks.
[2024-04-28 12:09] LABS: Glucose - Point of Care 95 mg/dl (70-99)
[2024-04-28] MEDS: NSS IV (12:32)
[2024-04-28] MEDS: FERRLECIT 110 MG IV (14:31)
--- NOTE | 2024-04-28 16:00 | PTCARENOTE ---
pt VSS, no changes in assessment. OOB to chair w/ assist, tolerated well. IS encouraged. family at bedside. upper dentures in place.
--- NOTE | 2024-04-28 18:00 | PTCARENOTE ---
PRBC x1 transfused as ordered. poor appetite, tolerating Ensures.
--- NOTE | 2024-04-28 20:45 | PTCARENOTE ---
Assumed care of pt from dayshift RN. Walking rounds completed. Pt AAOx3. TSE. Pt is A-paced on the tele monitor. HR 70s. Pt has a PPM set to DDD 70-130. BP stable. Last BP 108/55. Palpable pulses throughout. Trace bilateral ankle edema. Pt on 2 L
NC. POX 98%. Lung sounds diminished at the base. IS and deep breathing encouraged. Mediastinal CTx2 to -20 suction, no airleak or tidaling noted, and output WNL. CT dressing CDI. Abdomen soft/nontender. +BS. Pt voided in bedside commode w/o issue.
Denies nausea at this time. Left upper chest PPM site CDI. Sternal incision approximated and ANGELICA. Left wrist a-line site intact and bruised. No hematoma felt. Right IJ cordis and PIVx1 CDI. See worklist for full nursing assessment and interventions.
Call mukherjee within reach.
[2024-04-28] MEDS: PACERONE PO (21:48)
[2024-04-29] VITALS (9 sets, daily range): BP systolic 89–111; BP diastolic 50–67; BMI 25.4
--- NOTE | 2024-04-29 00:33 | PTCARENOTE ---
No acute changes in assessment. Pt currently A-V pacing on the monitor. HR 70. BP stable. Pt remains on 2 L NC. POX 99-100%. Mediastinal CT assessment unchanged from original. All surgical sites stable. Pt repositioned in bed. Call mukherjee within
reach.
--- NOTE | 2024-04-29 04:19 | PTCARENOTE ---
No change in assessment. Pt A/V paced on the tele monitor. HR 70. BP 98/51. Pt on 2 L NC. POX 100%. Mediastinal CTx2 assessment unchanged from original. Output WNL. All surgical sites stable. No c/o pain at this time. Pt repositioned in bed. Labs
drawn and sent. Call mukherjee within reach.
[2024-04-29 04:33] LABS: Hematocrit 26.6 % (37.0-47.0); Hemoglobin 8.9 g/dL (12.0-16.0); Mean Corp Hgb Conc. 33.5 g/dL (33.0-37.0); Mean Corpuscular Hgb 32.6 pg (27.0-31.0); Mean Corpuscular Volume 97.4 fL (81.0-99.0); Mean Platelet Volume 10.7 fL (7.4-10.4); Platelet Count 88 10^3/uL (130-400); Red Blood Cell Count 2.73 10^6/uL (4.20-5.40); Red Cell Dist. Width 13.9 % (11.5-14.5); White Blood Cell Count 14.3 10^3/uL (4.8-10.8)
[2024-04-29 04:53] LABS: Blood Urea Nitrogen 46 mg/dl (7-17); Calcium 9.9 mg/dl (8.4-10.2); Carbon Dioxide 27 mmol/L (22-30); Chloride 99 mmol/L (98-107); Estimated Creatinine Clearance 20 ml/min; Glucose 116 mg/dl (70-99); Magnesium 2.6 mg/dl (1.6-2.3); Potassium 4.7 mmol/L (3.5-5.1); Sodium 134 mmol/L (135-145); eGFR 28.13
--- NOTE | 2024-04-29 05:25 | W.PN.CT ---
Today's Communication / Plan
-
Plan:
-No major issues overnight. Hemodynamically and neurologically intact
-Feels stronger and denies further lightheadedness following 1u PRBC yesterday, h/h 8.9/26.6, was 7.9/23.4 yesterday
-Consider gentle diuresis with Lasix 20 mg IV today. BP soft, will place BB on hold while diuresing
-Monitor plts 88k, was 98K yesterday, should improve with diuresis
-Monitor cr 1.8, lives @ 1.1-1.7, should improve with diuresis
-monitor hyponatremia, 134, should improve with diuresis
-Consider d/c of chest tubes: 2meds 85/230
-Cont. current meds (ASA, Crestor, Amiodarone; placed AM BB on hold)
-Maintain cordis another day
-No temporary PW, has own PPM
-Wean off of O2 as tolerated
-Encourage use of IS
-OOB into chair/Ambulate
-Home in 1-2 days
Assessment / Plan
-
Assessment:
S/P Standard sternotomy with aortic and bicaval cannulation/Complex mitral valve repair [32 mm been anoplasty, triangular resection, [place]-Jonh cords to P1 and P2, free margin plication, commissuralplasty at A3 P3]/Tricuspid valve repair [28 mm band
angioplasty]/Left atrial maze [RF ablation with encompass clamp and cryoablation]/Left atrial appendage exclusion [45 mm clip], by Dr. Gomez, 04/27/24, pod#2
-Degenerative mitral valve insufficiency, secondary to prolapse and flail with multiple torn cords of the P2 segment, type II pathology
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
-Acute on chronic diastolic heart failure with preserved left ventricular ejection fraction with volume overload requiring Lasix outpatient
-LVEF 60-65% per intraop GABRIELA
-Mildly ectatic asc. aorta (4.3 cm)
-Persistent Atrial fibrillation
-Hypertension
-Right bundle branch block/ LAFB status post PPM
-Hx 2:1 HB
-Non-obstructive CAD
-COPD
-Former tobacco use, quit 10 year ago
-Abnormal chest CT 04/24/24 ( Persistent near complete atelectasis of the left lower lobe as above. Bilateral minimal pleural effusions), s/p bronch 04/25/24 showing no endobrachial lesions
-Chronic kidney disease, stage 3b
-Anemia of CKD
-S/P bladder suspension
-S/P appendectomy
-Acute blood loss/Anemia on chronic Anemia (stable without transfusion)
-Acute postop thrombocytopenia (stable without transfusion)
-Acute postop atelectasis
-Acute postop hypovolemia with subsequent hypervolemia
-Acute postop hyponatremia, 134
Discussed patient care with: Cardiology, Nursing, Respiratory Therapy and Pharmacy
Subjective
Procedure
S/P Standard sternotomy with aortic and bicaval cannulation/Complex mitral valve repair [32 mm been anoplasty, triangular resection, [place]-Jonh cords to P1 and P2, free margin plication, commissuralplasty at A3 P3]/Tricuspid valve repair [28 mm band
angioplasty]/Left atrial maze [RF ablation with encompass clamp and cryoablation]/Left atrial appendage exclusion [45 mm clip], by Dr. Gomez, 04/27/24
-
Date of Service: April 29, 2024
C/O mild incisional pain, denies further lightheadedness following blood transfusion, feels stronger, slept well
Objective Data
-
Lab Results
04/29/24 04:13
04/29/24 04:13
PT 14.8 Sec (11.4-14.6) H 04/28/24 04:06
INR 1.18 04/28/24 04:06
APTT 29.4 Sec (23.4-35.0) 04/27/24 11:17
Vital Signs
Vital Signs
Temp Pulse Resp BP Pulse Ox
98.2 F 70 16 98/51 100
04/29/24 04:09 04/29/24 04:08 04/29/24 04:09 04/29/24 04:08 04/29/24 04:09
CT Intake/Output/Weight
04/28/24 04/28/24 04/29/24
06:59 18:59 06:59
Intake Total 1033.7 / 2071.0 561.0 / 671.0 110 / 671.0
Output Total 545 / 1265 395 / 730 335 / 730
Balance 488.7 / 806.0 166.0 / -59.0 -225 / -59.0
SaO2: 100 (2L)
Physical Exam
-
General: Awake, Oriented and AOx3
Cardiovascular: Regular rate & rhythm, No Murmurs, No Rub and No Gallop
Respiratory: Decreased Breath Sounds (at bases, otherwise clear)
Sternum: Stable
Incision: Clean, Dry, Intact and Dressing Intact
Extremities: Other (+trace edema)
Data Reviewed
-
Lab Results: Results Reviewed
Medications: Active Meds Reviewed
Chest X-Ray: Report Reviewed and Image Reviewed
ECG: Report Reviewed and Image Reviewed
[2024-04-29] MEDS: TYLENOL 1000 MG PO ×3 (06:04→22:06)
[2024-04-29] MEDS: NSS 500 IV (06:21)
--- NOTE | 2024-04-29 07:45 | PTCARENOTE ---
Assumed care of patient. Walking rounds completed with previous RN. Pt assessed while she was sitting in the chair. Pt alert and oriented x4. TSE with equal strength throughout. Denies pain, shortness of breath, and nausea. 100% AV paced via PPM. BP
89/52. Heart tones audible. Bilateral radial and DP pulses palpable. +2 edema to bilateral lower extremities. POX 94% on RA. Lungs diminished in the bases. No cough noted. IS encouraged-750mL. Mediastinal chest tubes x2 y-sited to 1 atrium to -20cm
suction draining serosanguineous fluid. No air leak, tidaling, crepitus noted. Abdomen soft, nontender. +BS. Pt reports passing gas. Tolerating ensure shake. Due to void for this RN. Sternal incision approximated and MARINA PORTER. Chest tube dressing CDI.
Left wrist bruised. Right IJ cordis intact. Left AC PIV intact. See MAR for medication administration. See worklist for complete nursing assessment. Plan of care reviewed and patient in agreement.
[2024-04-29] MEDS: BACTROBAN 2% OINTMENT 1 APPLIC NASAL ×2 (07:54→22:05)
[2024-04-29] MEDS: LIDOCAINE 4% PATCH 1 PATCH TOPICAL (07:54)
[2024-04-29] MEDS: PROTONIX 40 MG PO (07:55)
[2024-04-29] MEDS: FLUSH (NSS) 1 FLUSH IV (07:55)
[2024-04-29] MEDS: NEURONTIN 100 MG PO ×3 (07:55→22:07)
[2024-04-29] MEDS: SENOKOT-S 1 TABLET PO ×2 (07:55→22:06)
[2024-04-29] MEDS: MAGNESIUM OXIDE PO ×2 (07:55→22:10)
[2024-04-29] MEDS: CRESTOR 20 MG PO (07:55)
[2024-04-29] MEDS: MUCINEX 1200 MG PO ×2 (07:55→22:06)
[2024-04-29] MEDS: PACERONE 200 MG PO ×3 (07:56→22:07)
[2024-04-29] MEDS: PULMICORT 0.5 MG INH ×2 (07:59→20:24)
[2024-04-29] MEDS: LOW STRENGTH ASPIRIN 81 MG PO (08:23)
--- NOTE | 2024-04-29 11:15 | PTCARENOTE ---
Pt reassessed. Pt ambulated 50' in the wood[place] and tolerated well. VSS. 100% AV paced at 70bpm. POX 94% on RA. Surgical sites stable. CT output WNL. Pt assisted back to bed. D/c mediastinal x2 chest tubes. Dressing applied. Resting in bed. Pt
tolerated.
[2024-04-29] MEDS: FLEXBUMIN 50 IV ×2 (11:24→19:17)
[2024-04-29] MEDS: KCL 20 MEQ PO (12:35)
[2024-04-29] MEDS: LASIX 40 MG IV (12:35)
--- NOTE | 2024-04-29 12:38 | W.PN.INTV ---
Today's Communication / Plan
Recommendations
Continue postoperative care
Continue nebulizer therapy
Secretion clearance interventions
Will require outpatient pulmonary follow-up
Assessment
-
78-year-old woman with history of COPD, former smoker who quit longer than 10 years ago, history of mitral valve disease. Electively admitted for proposed surgery on 04/27/2024. Reports recently admitted to the hospital with bronchitis completed
antibiotic therapy. Has persistent cough and difficulty expectorating. CT chest in preparation for surgery demonstrated left lower lobe atelectasis. We were consulted for evaluation of that.
Status post: Complex mitral valve repair, tricuspid valve repair, left atrial appendage excision, left atrial maze procedure 04/27/2024.
Postoperative mechanical ventilation
Postoperative anemia
-
Abnormal CT chest: Left lower lobe atelectasis on CAT scan.
Status post bronchoscopy 04/25/2024: No evidence for endobronchial lesion. Tenacious secretions.
COPD-not on exacerbation
Not on inhalers in the outpatient setting
Conditions present prior admission:
Hypertension
Former smoker-quit at least 10 years ago
Nonobstructive coronary artery disease on cardiac catheterization 04/2023
RBBB
History of 2: 1 AV block
Chronic kidney disease stage IIIb
Persistent atrial fibrillation
Plan and recommendations:
Postoperative day 2
Continue low rate supplemental oxygen-wean off as able.
Patient feels better
Status post 1 unit of packed red blood cells 04/28/2024
Continue with secretion clearance interventions
Encourage incentive spirometry
Acapella device
Increase activity as able
Anemia noted-no evidence of acute bleeding
Status post 1 unit of red blood cell
H&H is
Hemodynamics -off vasopressor
Creatinine elevated but close to baseline
Crenshaw urinary output
Hemodynamic monitoring
To start gentle diuresis
Chest tube with no excessive drainage-no air leak.
Chest x-ray reviewed 04/28/2020: With no pneumothorax or fluid collections.
Advance diet as able
Head of the bed elevation
Glycemic control per protocol
Abnormal CT chest: Near complete collapse of the left lower lobe, there is concerns for obstructing mass resulting on left lower lobe collapse. There is a small loculated pleural effusion on the left. Patient is a former smoker.
Status post bronchoscopy 04/25/2024:
Report reviewed no evidence for endobronchial lesion. There is bilateral tenacious secretions. Suctioning performed.
Cultures negative so far. Cytology neck
Patient recently completed full course of antibiotics.
recent admission to [facility] for bronchitis/pneumonia.
Continue secretion clearance interventions:
Continue Pulmicort twice a day-can continue while in the hospital
Continue DuoNebs 3 times a day-can continue while in the hospital
Percussion therapy-2-3 times a day
Acapella device-encourage, when able
Mucolytic-continue
Will need outpatient radiographic [id number] will be left in the chart. COPD evaluation etc.
DVT prophylaxis when safe from the surgical perspective.
Pulmonary will follow

Data reviewed:
Pulmonary function testing 04/24/2024:
Postbronchodilator FVC 2.28 L - 98%
FEV1 1.28 L - 72%
FEV1/FVC ratio 56%
Total lung capacity 4.6 L - 101%
Residual volume 2.35 L - 114%
RV/TLC ratio 51%
Diffusion capacity 8.79-51%
Summary: Moderate airflow obstruction with air trapping. Moderately decreased diffusion capacity. Consistent with moderate COPD.
-
GABRIELA 03/27/2024: EF 60 to 65%, normal regional wall motion, severe mitral valve prolapse at predominantly P2 with a likely torn cord, eccentric jet of severe MR with peak E wave velocity 1.3M/S, mean gradient 2 mmHg, mild aortic regurgitation,
moderate TR.
-
noncontrast CT chest 04/24/2024:
There is near complete collapse of the left lower lobe of the lung. Concern is raised for an obstructing mass in the superior aspect of the left lower lobe.
Consider further evaluation with contrast-enhanced CT of the chest.
Subjective Dataa
Subjective Data
Date of Service:
Date of Service: April 29, 2024
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
Subjective:
Feeling stronger
Denies significant cough or chest congestion
Pain is controlled
Review of Systems
Cardiopulmonary: Dyspnea (None at rest)
GI: Abdominal Pain (n) and Nausea (n)
Neuro: Headache (n)
Objective Data
Data Reviewed
Vital Signs / I&O / Oxygen:
Vital Signs
Temp Pulse Resp BP Pulse Ox
98.3 F 70 16 95/58 94
04/29/24 11:05 04/29/24 11:05 04/29/24 11:05 04/29/24 11:05 04/29/24 11:05
Intake and Output
04/28/24 04/29/24 04/30/24
06:59 06:59 06:59
Intake Total 2048.2 / 2071.0 691.0 / 691.0 340 / 340
Output Total 1220 / 1265 945 / 945 45 / 45
Balance 828.2 / 806.0 -254.0 / -254.0 295 / 295
SaO2 [CPAP/PSV] 100
SaO2 [SIMV] 99
SaO2 94
Nasal Cannula flow liters per 2
minute
Physical Exam
General: Comfortable
HEENT: Normocephalic and Other (ET tube in place without secretions)
Cardiovascular: S1-S2
Respiratory: Clear and Chest Tube (No excessive drainage or air leak)
GI: Soft and Non Distended
Neurology: Awake, Alert, Oriented and No Motor Deficits
Skin: Warm
Labs/Micro/Reports
Lab Data
04/29/24 04:13
Microbiology
04/25/24 11:17 Bronch Right Middle Lobe Acid Fast Bacilli Smear - Preliminary
04/25/24 11:17 Bronch Right Middle Lobe Acid Fast Bacilli Culture - Preliminary
04/25/24 11:17 Bronch Left Lower Lobe Acid Fast Bacilli Smear - Preliminary
04/25/24 11:17 Bronch Left Lower Lobe Acid Fast Bacilli Culture - Preliminary
04/25/24 11:17 Bronch Right Middle Lobe Respiratory Culture - Final
Usual Respiratory Lilia
04/25/24 11:17 Bronch Right Middle Lobe Gram Stain - Final
04/25/24 11:16 Bronch Left Lower Lobe Respiratory Culture - Final
Usual Respiratory Lilia
04/25/24 11:16 Bronch Left Lower Lobe Gram Stain - Final
[2024-04-29] MEDS: FERRLECIT 110 MG IV (14:14)
[2024-04-29 14:48] LABS: Blood Urea Nitrogen 50 mg/dl (7-17); Calcium 9.9 mg/dl (8.4-10.2); Carbon Dioxide 24 mmol/L (22-30); Chloride 96 mmol/L (98-107); Estimated Creatinine Clearance 19 ml/min; Glucose 200 mg/dl (70-99); Potassium 4.7 mmol/L (3.5-5.1); Sodium 132 mmol/L (135-145); eGFR 26.36
--- NOTE | 2024-04-29 15:30 | PTCARENOTE ---
pt received from previous RN, agree w/ previous assessment. VSS. OOB in chair. at bedside. lab work drawn, PA aware of results. IS encouraged.
--- NOTE | 2024-04-29 20:00 | PTCARENOTE ---
PT AAOx4, 100% A paced, VSS, RA clear lung sounds GI and WNL,all surgical sights CDI see worklist for detailed assessment
[2024-04-30] VITALS (13 sets, daily range): BP systolic 95–114; BP diastolic 55–72; PULSE 71–121; O2SAT 94–96; BMI 26.5
--- NOTE | 2024-04-30 | PTCARENOTE ---
no change from previous assessment
[2024-04-30] MEDS: FLEXBUMIN IV (02:30)
[2024-04-30] MEDS: FLEXBUMIN 50 IV (02:30)
--- NOTE | 2024-04-30 04:00 | PTCARENOTE ---
no chnage from previous assessment
--- NOTE | 2024-04-30 04:41 | W.PN.CT ---
Today's Communication / Plan
-
Plan:
-No major issues overnight. Hemodynamically and neurologically intact
-Off all drips
-Currently A/V paced @ 70 bpm
-Monitor cr 1.8 yesterday, baseline 1.1-1.7. AM labs pending. Labs back with cr 2.0 today, K 5.2, sodium 133, plts 87K, likely d/t 25% albumin yesterday
-Wt is up 17 lbs from preop, will benefit from diuresis today
-Cont. current meds (ASA, Crestor, Amiodarone, BB on hold given postop soft BP)
-D/C cordis
-No temporary PW, has own PPM
-Encourage use of IS
-OOB into chair/Ambulate
-Likely d/c home tomorrow
Assessment / Plan
-
Assessment:
S/P Standard sternotomy with aortic and bicaval cannulation/Complex mitral valve repair [32 mm been anoplasty, triangular resection, [place]-Jonh cords to P1 and P2, free margin plication, commissuralplasty at A3 P3]/Tricuspid valve repair [28 mm band
angioplasty]/Left atrial maze [RF ablation with encompass clamp and cryoablation]/Left atrial appendage exclusion [45 mm clip], by Dr. Gomez, 04/27/24, pod#3
-Degenerative mitral valve insufficiency, secondary to prolapse and flail with multiple torn cords of the P2 segment, type II pathology
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
-Acute on chronic diastolic heart failure with preserved left ventricular ejection fraction with volume overload requiring Lasix outpatient
-LVEF 60-65% per intraop GABRIELA
-Mildly ectatic asc. aorta (4.3 cm)
-Persistent Atrial fibrillation
-Hypertension
-Right bundle branch block/ LAFB status post PPM
-Hx 2:1 HB
-Non-obstructive CAD
-COPD
-Former tobacco use, quit 10 year ago
-Abnormal chest CT 04/24/24 ( Persistent near complete atelectasis of the left lower lobe as above. Bilateral minimal pleural effusions), s/p bronch 04/25/24 showing no endobrachial lesions
-Chronic kidney disease, stage 3b
-Anemia of CKD
-S/P bladder suspension
-S/P appendectomy
-Acute blood loss/Anemia on chronic Anemia (stable without transfusion)
-Acute postop thrombocytopenia (stable without transfusion)
-Acute postop atelectasis
-Acute postop hypovolemia with subsequent hypervolemia
-Acute postop hyponatremia, 134
Discussed patient care with: Cardiology, Nursing, Respiratory Therapy, Pharmacy and Care Team
Subjective
Procedure
S/P Standard sternotomy with aortic and bicaval cannulation/Complex mitral valve repair [32 mm been anoplasty, triangular resection, [place]-Jonh cords to P1 and P2, free margin plication, commissuralplasty at A3 P3]/Tricuspid valve repair [28 mm band
angioplasty]/Left atrial maze [RF ablation with encompass clamp and cryoablation]/Left atrial appendage exclusion [45 mm clip], by Dr. Gomez, 04/27/24
-
Date of Service: April 30, 2024
Pt c/o mild incisional pain, otherwise feels well
Objective Data
-
PT 14.8 Sec (11.4-14.6) H 04/28/24 04:06
INR 1.18 04/28/24 04:06
APTT 29.4 Sec (23.4-35.0) 04/27/24 11:17
Vital Signs
Vital Signs
Temp Pulse Resp BP Pulse Ox
98 F 70 16 97/56 95
04/29/24 20:00 04/30/24 02:00 04/29/24 20:27 04/30/24 01:40 04/29/24 20:27
CT Intake/Output/Weight
04/29/24 04/29/24 04/30/24
06:59 18:59 06:59
Intake Total 130 / 691.0 490 / 560 70 / 560
Output Total 550 / 945 345 / 345
Balance -420 / -254.0 145 / 215 70 / 215
SaO2: 95 (RA)
Physical Exam
-
General: Awake, Oriented and AOx3
Cardiovascular: Regular rate & rhythm (A/V paced @ 70 bpm), No Murmurs, No Rub and No Gallop
Respiratory: Decreased Breath Sounds (at bases, otherwise clear)
Sternum: Stable
Incision: Clean, Dry, Intact and Dressing Intact
Extremities: Other (+trace edema )
Data Reviewed
-
Lab Results: Results Reviewed
Medications: Active Meds Reviewed
Chest X-Ray: Report Reviewed and Image Reviewed
ECG: Report Reviewed and Image Reviewed
[2024-04-30 05:48] LABS: Hematocrit 26.2 % (37.0-47.0); Hemoglobin 8.8 g/dL (12.0-16.0); Mean Corp Hgb Conc. 33.6 g/dL (33.0-37.0); Mean Corpuscular Hgb 32.2 pg (27.0-31.0); Mean Platelet Volume 10.9 fL (7.4-10.4); Platelet Count 87 10^3/uL (130-400); Red Blood Cell Count 2.73 10^6/uL (4.20-5.40); Red Cell Dist. Width 14.2 % (11.5-14.5); White Blood Cell Count 15.3 10^3/uL (4.8-10.8)
[2024-04-30 05:53] LABS: Blood Urea Nitrogen 58 mg/dl (7-17); Calcium 9.7 mg/dl (8.4-10.2); Carbon Dioxide 26 mmol/L (22-30); Chloride 96 mmol/L (98-107); Estimated Creatinine Clearance 18 ml/min; Glucose 111 mg/dl (70-99); Magnesium 2.5 mg/dl (1.6-2.3); Potassium 5.2 mmol/L (3.5-5.1); Sodium 132 mmol/L (135-145); eGFR 24.79
[2024-04-30] MEDS: TYLENOL 1000 MG PO ×3 (06:15→22:50)
[2024-04-30] MEDS: PULMICORT 0.5 MG INH ×2 (07:19→19:12)
[2024-04-30] MEDS: VENTOLIN NEBULES 2.5 MG INH ×2 (07:20→19:16)
--- NOTE | 2024-04-30 07:42 | W.PN.INTV ---
Today's Communication / Plan
Recommendations
Continue mucolytics
Mucus clearing devices
Budesonide and albuterol as needed
Pulmonary will sign off-please call with questions.
Assessment
-
78-year-old woman with history of COPD, former smoker who quit longer than 10 years ago, history of mitral valve disease. Electively admitted for proposed surgery on 04/27/2024. Reports recently admitted to the hospital with bronchitis completed
antibiotic therapy. Has persistent cough and difficulty expectorating. CT chest in preparation for surgery demonstrated left lower lobe atelectasis. We were consulted for evaluation of that.
Status post: Complex mitral valve repair, tricuspid valve repair, left atrial appendage excision, left atrial maze procedure 04/27/2024.
Postoperative mechanical ventilation
Postoperative anemia
-
Abnormal CT chest: Left lower lobe atelectasis on CAT scan.
Status post bronchoscopy 04/25/2024: No evidence for endobronchial lesion. Tenacious secretions.
COPD-not on exacerbation
Not on inhalers in the outpatient setting
Conditions present prior admission:
Hypertension
Former smoker-quit at least 10 years ago
Nonobstructive coronary artery disease on cardiac catheterization 04/2023
RBBB
History of 2: 1 AV block
Chronic kidney disease stage IIIb
Persistent atrial fibrillation
Plan:
Respiratory status and hemodynamics have improved
Tolerated extubation
Mucus clearing devices recommended
Continue nebulizers and inhalers
Mucolytic's
CT chest with near complete collapse of the left lower lobe
Bronchoscopy 04/25/2024-no endobronchial lesions, bilateral tenacious secretions, cultures and cytology negative
Will need to follow-up left lower lobe atelectasis is an outpatient-suspect chronic-did not improve with bronchoscopy
Bronchoscopy preoperatively-no endobronchial lesions, cultures and cytology negative, mucous plugs noted
Cultures reviewed
Patient is now off vasopressors recently completed a full course of antibiotics
Cardiovascular surgery following-correspondence reviewed
Gentle diuresis
Monitor renal function, electrolytes, intake/output, lower extremity edema and weight
Replace electrolytes as needed
Monitor hemoglobin
Transfuse if needed
Monitor blood sugar
Insulin supplementation as needed
Respiratory status has improved-pulmonary will sign off
Recommend outpatient pulmonary [id number]-up radiographically, PFTs, etc.
Data:
Pulmonary function testing 04/24/2024:
Postbronchodilator FVC 2.28 L - 98%
FEV1 1.28 L - 72%
FEV1/FVC ratio 56%
Total lung capacity 4.6 L - 101%
Residual volume 2.35 L - 114%
RV/TLC ratio 51%
Diffusion capacity 8.79-51%
Summary: Moderate airflow obstruction with air trapping. Moderately decreased diffusion capacity. Consistent with moderate COPD.
GABRIELA 03/27/2024: EF 60 to 65%, normal regional wall motion, severe mitral valve prolapse at predominantly P2 with a likely torn cord, eccentric jet of severe MR with peak E wave velocity 1.3M/S, mean gradient 2 mmHg, mild aortic regurgitation,
moderate TR.
CT chest noncontrast CT chest 04/24/2024:
There is near complete collapse of the left lower lobe of the lung. Concern is raised for an obstructing mass in the superior aspect of the left lower lobe.
Consider further evaluation with contrast-enhanced CT of the chest.
Subjective Dataa
Subjective Data
Date of Service:
Date of Service: April 30, 2024
Chief Complaint: Hand Tube Winder Follow Up (Status post mitral valve repair) and Pulmonary Follow Up
Subjective:
Out of bed in chair, on room air, less chest congestion, no chest pain, abdominal pain
Review of Systems
General: Other (Per HPI)
Objective Data
Data Reviewed
Vital Signs / I&O / Oxygen:
Vital Signs
Temp Pulse Resp BP Pulse Ox
98.5 F 71 16 106/60 95
04/30/24 04:00 04/30/24 07:25 04/30/24 07:25 04/30/24 05:10 04/30/24 05:34
Intake and Output
04/29/24 04/30/24 05/01/24
06:59 06:59 06:59
Intake Total 691.0 / 691.0 560 / 560
Output Total 945 / 945 345 / 345
Balance -254.0 / -254.0 215 / 215
SaO2 [CPAP/PSV] 100
SaO2 [SIMV] 99
SaO2 95
Nasal Cannula flow liters per 2
minute
Physical Exam
General: Comfortable
HEENT: Normocephalic and Other (ET tube in place without secretions)
Cardiovascular: S1-S2
Respiratory: Clear and Chest Tube (No excessive drainage or air leak)
GI: Soft and Non Distended
Neurology: Awake, Alert, Oriented and No Motor Deficits
Skin: Warm
Labs/Micro/Reports
Lab Data
04/30/24 05:13
04/30/24 05:13
Microbiology
04/25/24 11:17 Bronch Right Middle Lobe Acid Fast Bacilli Smear - Preliminary
04/25/24 11:17 Bronch Right Middle Lobe Acid Fast Bacilli Culture - Preliminary
04/25/24 11:17 Bronch Left Lower Lobe Acid Fast Bacilli Smear - Preliminary
04/25/24 11:17 Bronch Left Lower Lobe Acid Fast Bacilli Culture - Preliminary
04/25/24 11:17 Bronch Right Middle Lobe Respiratory Culture - Final
Usual Respiratory Lilia
04/25/24 11:17 Bronch Right Middle Lobe Gram Stain - Final
04/25/24 11:16 Bronch Left Lower Lobe Respiratory Culture - Final
Usual Respiratory Lilia
04/25/24 11:16 Bronch Left Lower Lobe Gram Stain - Final
[2024-04-30] MEDS: PROTONIX 40 MG PO (08:03)
[2024-04-30] MEDS: LOW STRENGTH ASPIRIN 81 MG PO (08:03)
[2024-04-30] MEDS: MUCINEX 1200 MG PO ×2 (08:03→19:48)
[2024-04-30] MEDS: CRESTOR 20 MG PO (08:03)
[2024-04-30] MEDS: PACERONE 200 MG PO ×3 (08:03→22:50)
[2024-04-30] MEDS: SENOKOT-S 1 TABLET PO ×2 (08:04→19:48)
[2024-04-30] MEDS: NEURONTIN 100 MG PO ×3 (08:04→22:50)
[2024-04-30] MEDS: BACTROBAN 2% OINTMENT 1 APPLIC NASAL ×2 (08:04→19:49)
[2024-04-30] MEDS: LIDOCAINE 4% PATCH TOPICAL (08:05)
[2024-04-30] MEDS: LASIX 40 MG IV (08:06)
--- NOTE | 2024-04-30 09:22 | PTCARENOTE ---
assumed care of pt from previous shift RN, paced rhythm on tele, VSS, +bs, tolerating PO intake, voids spontaneously, right IJ cordis w KVO infusing, PIV flushes easily, post op incision intact. pt denies pain. plan of care reviewed and questions
encouraged.
--- NOTE | 2024-04-30 11:00 | PTCARENOTE ---
TEDs applied as ordered.
--- NOTE | 2024-04-30 11:55 | W.PN.CARDCBS ---
Today's Communication / Plan
-
Overall doing well. Remains AV paced.
Hemoglobin overall stable at 9.
Creatinine at 2.0. Continue to follow.
Impression / Plan
-
PCP: Dr. Hiren Gamino
Cardiology: Dr. Knox
Impression:
Status post complex mitral valve repair, tricuspid valve repair, left atrial maze and DUSTIN clip 04/27/24
Severe MR by GABRIELA 03/27/24
Moderate TR
Persistent Afib
Chronic Eliquis OAC, last dose 04/23/24 AM
HTN
Former smoker
abnormal chest CT 04/24/24, s/p bronch 04/25/24 showing no endobrachial lesions
Nonobstructive CAD by cath at 05/04/23
RBBB
LAFB
h/o 2:1 AV block at time of cath 04/2023
CKD 3b
GABRIELA 03/27/2024: EF 60 to 65%, normal regional wall motion, severe mitral valve prolapse at predominantly P2 with a likely torn cord, eccentric jet of severe MR with peak E wave velocity 1.3M/S, mean gradient 2 mmHg, mild aortic regurgitation,
moderate TR
RHC 04/24/24: RA 11, PA 34/22, PCWP 21, CO/CI: 2.7/1.7, [place] remains in place
bronch 04/25/24 (performed due to abnl chest CT showing near complete collapse of LLL, concern for obstructing mass): no endobrachial lesions, + thick secretions, lavage w/ removal of mucous plugs and secretions
Plan:
-Status post complex mitral valve repair, tricuspid valve repair, left atrial maze and DUSTIN clip 04/27/24
-in av paced rhythm @70. Continue amiodarone and metoprolol.
-resume OAC when ok per surgery
-Creatinine up to 2.0 with mildly elevated potassium. Agree with repeat.
-Hemoglobin at 8.8.
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
Subjective
Date of Service: April 30, 2024
Overall doing well. Remains AV paced. Denies significant pains.
Objective
Labs:
04/30/24 05:13
Labs
Hgb 8.8 g/dL (12.0-16.0) L 04/30/24 05:13
Hct 26.2 % (37.0-47.0) L 04/30/24 05:13
Plt Count 87 10^3/uL (130-400) L 04/30/24 05:13
PT 14.8 Sec (11.4-14.6) H 04/28/24 04:06
INR 1.18 04/28/24 04:06
APTT 29.4 Sec (23.4-35.0) 04/27/24 11:17
Sodium 132 mmol/L (135-145) L 04/30/24 05:13
Potassium 5.2 mmol/L (3.5-5.1) H 04/30/24 05:13
BUN 58 mg/dl (7-17) H 04/30/24 05:13
Creatinine 2.0 mg/dL (0.6-1.0) H 04/30/24 05:13
Glucose 111 mg/dl (70-99) H 04/30/24 05:13
Vital Signs and I&O:
Vital Signs
Temp Pulse Resp BP Pulse Ox
98.2 F 70 18 100/55 92
04/30/24 07:58 04/30/24 08:00 04/30/24 07:58 04/30/24 07:58 04/30/24 09:30
Vital Signs
Temp Pulse Resp BP Pulse Ox
98.2 F 70 18 100/55 92
04/30/24 07:58 04/30/24 08:00 04/30/24 07:58 04/30/24 07:58 04/30/24 09:30
Intake & Output
10/12/04/29/24 04/30/24 05/01/24
06:59 06:59 06:59 06:59
Intake Total 2048.2 / 2071.0 691.0 / 691.0 560 / 560 110 / 110
Output Total 1220 / 1265 945 / 945 345 / 345 200 / 200
Balance 828.2 / 806.0 -254.0 / -254.0 215 / 215 -90 / -90
Physical Exam
Physical Exam
GEN: No distress, awake, Ox3
HEENT: supple, anicteric, mmm
LUNGS: CTA, no wheezes/rales
CV: Reg, S1/S2, no murmur/rub
ABD: soft, BS+, NT/ND
EXT: No edema
NEURO: Gross non-focal
SKIN: sternotomy
[2024-04-30] MEDS: NSS IV (11:58)
[2024-04-30] MEDS: FERRLECIT 110 MG IV (12:59)
[2024-04-30 13:05] LABS: Blood Urea Nitrogen 56 mg/dl (7-17); Calcium 9.7 mg/dl (8.4-10.2); Carbon Dioxide 25 mmol/L (22-30); Chloride 96 mmol/L (98-107); Estimated Creatinine Clearance 22 ml/min; Glucose 107 mg/dl (70-99); Potassium 4.9 mmol/L (3.5-5.1); Sodium 131 mmol/L (135-145); eGFR 28.13
--- NOTE | 2024-04-30 15:08 | CM ---
Reviewed chart. Met with And Mrs. Pimentel to review discharge plans. She states she is feeling well and maybe able to go home soon. She states she ambulated in the hallway today. She states she resides with her spouse, granddaughter , and her
fiance in a two story home with two steps to enter. She states she has a full flight of steps to get to bedroom. She uses a bedside commode at night if needed. Her full bathroom is on the first floor. She states prior to admission she was
independent with ambulation and adls. She has a bedside commode at home. Spouse states he is going to get her a walker. She states she has a prescription plan and uses [facility]. We reviewed a home visit by the Cardiothoracic Transitional
Care Nurse. She is agreeable to a home visit. Medical work-up in progress. The discharge plan is to return home with her spouse and family with a home visit by the Cardiothoracic Transitional Care Nurse when medically stable.
--- NOTE | 2024-04-30 19:00 | PTCARENOTE ---
report received from previous RN, walking rounds done, assumed care. pt in chair, AAOx4. pt denies any pain at this time. VSS. AV paced on monitor via PPM, HR 80s-90s. POX 95% on room air. RIJ cordis intact w KVO infusing. all surgical sites stable.
20mg IV Lasix given per CT PA. pt instructed to limit water intake. see worklist for full assessment, VS, and interventions. pt resting comfortably.
[2024-04-30] MEDS: LASIX 20 MG IV (19:55)
[2024-05-01] VITALS (9 sets, daily range): BP systolic 96–125; BP diastolic 59–78; PULSE 84–108; BMI 26.8
--- NOTE | 2024-05-01 04:26 | W.PN.CT ---
Today's Communication / Plan
-
Plan:
-No major issues overnight. Hemodynamically and neurologically intact
-Off all drips
-Currently A/V paced @ 70 bpm
-Creatinine is at baseline of 1.7 (baseline 1.1-1.7)
-Hyponatremia improving, 133 today, was 131 yesterday
-Thrombocytopenia improving, 98K, was 87K yesterday
-Wt is up 18 lbs from preop, will benefit from diuresis today. Fluid restriction
-Cont. current meds (ASA, Crestor, Amiodarone, BB on hold given postop soft BP)
-D/C cordis
-F/U 2-view cxr
-No temporary PW, has own PPM
-Encourage use of IS
-OOB into chair/Ambulate
-Likely d/c home tomorrow
Assessment / Plan
-
Assessment:
S/P Standard sternotomy with aortic and bicaval cannulation/Complex mitral valve repair [32 mm been anoplasty, triangular resection, Shobonier-Jonh cords to P1 and P2, free margin plication, commissuralplasty at A3 P3]/Tricuspid valve repair [28 mm band
angioplasty]/Left atrial maze [RF ablation with encompass clamp and cryoablation]/Left atrial appendage exclusion [45 mm clip], by Dr. Gomez, 04/27/24, pod#4
-Degenerative mitral valve insufficiency, secondary to prolapse and flail with multiple torn cords of the P2 segment, type II pathology
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
-Acute on chronic diastolic heart failure with preserved left ventricular ejection fraction with volume overload requiring Lasix outpatient
-LVEF 60-65% per intraop GABRIELA
-Mildly ectatic asc. aorta (4.3 cm)
-Persistent Atrial fibrillation
-Hypertension
-Right bundle branch block/ LAFB status post PPM
-Hx 2:1 HB
-Non-obstructive CAD
-COPD
-Former tobacco use, quit 10 year ago
-Abnormal chest CT 04/24/24 ( Persistent near complete atelectasis of the left lower lobe as above. Bilateral minimal pleural effusions), s/p bronch 04/25/24 showing no endobrachial lesions
-Chronic kidney disease, stage 3b
-Anemia of CKD
-S/P bladder suspension
-S/P appendectomy
-Acute blood loss/Anemia on chronic Anemia (stable without transfusion)
-Acute postop thrombocytopenia (stable without transfusion)
-Acute postop atelectasis
-Acute postop hypovolemia with subsequent hypervolemia
-Acute postop hyponatremia, 134
-Acute postop VERO on CKD3b
Discussed patient care with: Cardiology, Nursing, Respiratory Therapy, Pharmacy and Care Team
Subjective
Procedure
S/P Standard sternotomy with aortic and bicaval cannulation/Complex mitral valve repair [32 mm been anoplasty, triangular resection, Shobonier-Jonh cords to P1 and P2, free margin plication, commissuralplasty at A3 P3]/Tricuspid valve repair [28 mm band
angioplasty]/Left atrial maze [RF ablation with encompass clamp and cryoablation]/Left atrial appendage exclusion [45 mm clip], by Dr. Gomez, 04/27/24
-
Date of Service: May 01, 2024
Pt c/o mild incisional pain, otherwise feels well. Ambulating halls without difficulty
Objective Data
-
PT 14.8 Sec (11.4-14.6) H 04/28/24 04:06
INR 1.18 04/28/24 04:06
APTT 29.4 Sec (23.4-35.0) 04/27/24 11:17
Vital Signs
Vital Signs
Temp Pulse Resp BP Pulse Ox
97.9 F 77 18 107/60 92
04/30/24 23:16 04/30/24 23:16 04/30/24 23:16 04/30/24 23:16 04/30/24 23:16
CT Intake/Output/Weight
04/30/24 04/30/24 05/01/24
06:59 18:59 06:59
Intake Total 70 / 560 250 / 280 30 / 280
Output Total 950 / 1150 200 / 1150
Balance 70 / 215 -700 / -870 -170 / -870
SaO2: 92 (RA)
Physical Exam
-
General: Awake, Oriented and AOx3
Cardiovascular: Regular rate & rhythm (a/v paced @ 77), No Murmurs, No Rub and No Gallop
Respiratory: Clear
Sternum: Stable
Incision: Clean, Dry, Intact and Dressing Intact
Extremities: Other (+trace edema)
Data Reviewed
-
Lab Results: Results Reviewed
Medications: Active Meds Reviewed
Chest X-Ray: Report Reviewed and Image Reviewed
ECG: Report Reviewed and Image Reviewed
--- NOTE | 2024-05-01 04:45 | PTCARENOTE ---
pt VSS, no acute changes in assessment. AV paced on monitor. POX 93% on room air. AM labs drawn and sent. pt sleeping between care.
[2024-05-01 05:20] LABS: Hematocrit 28.1 % (37.0-47.0); Hemoglobin 9.5 g/dL (12.0-16.0); Mean Corp Hgb Conc. 33.8 g/dL (33.0-37.0); Mean Corpuscular Hgb 33.7 pg (27.0-31.0); Mean Corpuscular Volume 99.6 fL (81.0-99.0); Mean Platelet Volume 11.2 fL (7.4-10.4); Platelet Count 98 10^3/uL (130-400); Red Blood Cell Count 2.82 10^6/uL (4.20-5.40); Red Cell Dist. Width 13.8 % (11.5-14.5); White Blood Cell Count 16.1 10^3/uL (4.8-10.8)
[2024-05-01 05:37] LABS: Blood Urea Nitrogen 60 mg/dl (7-17); Calcium 9.9 mg/dl (8.4-10.2); Carbon Dioxide 26 mmol/L (22-30); Chloride 96 mmol/L (98-107); Estimated Creatinine Clearance 24 ml/min; Glucose 113 mg/dl (70-99); Magnesium 2.4 mg/dl (1.6-2.3); Sodium 133 mmol/L (135-145); eGFR 30.13
[2024-05-01] MEDS: TYLENOL PO (07:36)
--- NOTE | 2024-05-01 08:33 | PTCARENOTE ---
Patient received from salt refiner resting in bed, AAO X 3, states pain controlled. AV-paced via cm, SaO2 @ 93% on RA. RIJ Cordis w/kvo. All procedural sites stable. Patient assisted oob to bathroom, voided, am care performed. Settled to chair,
belongings and mukherjee within reach. Patient updated to plan of care for the day, in agreement. See work list for full assessment and interventions performed.
[2024-05-01] MEDS: LASIX 40 MG IV ×2 (08:48→16:11)
[2024-05-01] MEDS: BACTROBAN 2% OINTMENT 1 APPLIC NASAL (08:48)
[2024-05-01] MEDS: PROTONIX 40 MG PO (08:49)
[2024-05-01] MEDS: CRESTOR 20 MG PO (08:49)
[2024-05-01] MEDS: SENOKOT-S 1 TABLET PO (08:49)
[2024-05-01] MEDS: LOW STRENGTH ASPIRIN 81 MG PO (08:49)
[2024-05-01] MEDS: PACERONE 200 MG PO ×4 (08:49→22:58)
[2024-05-01] MEDS: NEURONTIN 100 MG PO ×3 (08:49→22:58)
[2024-05-01] MEDS: MUCINEX 1200 MG PO ×2 (08:49→20:49)
[2024-05-01] MEDS: LIDOCAINE 4% PATCH TOPICAL (09:07)
[2024-05-01] MEDS: NSS IV (09:08)
--- NOTE | 2024-05-01 10:30 | W.PN.CARDCBS ---
Addendum entered and electronically signed by Cain Walter MD 05/01/24 12:11:
I saw and examined the patient.
The Legend Maker's note was reviewed and I agree with the note.
Comment:
GEN: No distress, awake, Ox3
HEENT: supple, anicteric, mmm
LUNGS: CTA, no wheezes/rales
CV: Reg, S1/S2, no gallop
ABD: soft, BS+, NT/ND
EXT: No edema
NEURO: Gross non-focal
SKIN: sternotomy
Plan:
Overall doing well. Weight is up agree with Lasix 40 mg IV twice daily. Creatinine is down to 1.7. Continue to follow.
Remains AV paced. Cont Amiodarone.
Original Note:
Today's Communication / Plan
-
Lasix 40 mg IV BID ordered
Appears to be in SR
Eventually restart and will need to determine dose based on Cre that day and then continue to follow
Impression / Plan
-
PCP: Dr. Hiren Gamino
Cardiology: Dr. Knox
Impression:
Status post complex mitral valve repair, tricuspid valve repair, left atrial maze and DUSTIN clip 04/27/24
Severe MR and moderate TR by GABRIELA 03/27/24
Persistent Afib
Chronic Eliquis OAC, last dose 04/23/24 AM
HTN
Former smoker
Abnormal chest CT 04/24/24, s/p bronch 04/25/24 showing no endobrachial lesions
Nonobstructive CAD by cath at 05/04/23
RBBB
LAFB
h/o 2:1 AV block at time of cath 04/2023
CKD 3b
GABRIELA 03/27/2024: EF 60 to 65%, normal regional wall motion, severe mitral valve prolapse at predominantly P2 with a likely torn cord, eccentric jet of severe MR with peak E wave velocity 1.3M/S, mean gradient 2 mmHg, mild aortic regurgitation,
moderate TR
RHC 04/24/24: RA 11, PA 34/22, PCWP 21, CO/CI: 2.7/1.7, [place] remains in place
Bronch 04/25/24 (performed due to abnl chest CT showing near complete collapse of LLL, concern for obstructing mass): no endobrachial lesions, + thick secretions, lavage w/ removal of mucous plugs and secretions
Plan:
-Tele reviewed by me and ECG from 04/28/24 reviewed by me looks like SR with a sensed and v paced rhythm. Patient with persistent Afib on admission. Cont amiodarone 200 mg TID, patient has received 1.4 gram load as of 05/01/24 AM.
-New to Lopressor 12.5 mg BID
-Eventually restart Eliquis. Follow up on labs, but Cre of 1.7 on 05/01/24 requires lowering dose to 2.5 mg BID given age 78. Patient was taking Eliquis 5 mg BID prior to admission
-Lasix 40 mg IV BID started 05/01/24. Patient weighed 126 lbs on 04/24/24 and is up to 146 lbs on 05/01/24.
-Post-op GABRIELA reports EF 60-65%.
HPI: Patient came to today for elective admission prior to planned MVR, TVR, MAZE and DUSTIN clip on 04/27/24 for severe MR, moderate TR and persistent Afib, cardiology now consulted to follow along. Patient sees Dr. Knox at [facility]. Patient had an
abnormal stress test in the fall 2022 and was then referred for cardiac catheterization which was performed on 05/04/2023. Patient had near normal coronary arteries at time of cardiac cath 05/04/2023. Patient also noted to have intermittent 2-1 AV
block with heart rates in the 40s during the procedure and so her outpatient dose of metoprolol was stopped. Patient had a repeat echo a couple of months after cardiac cath that showed clear prolapse of a posterior scallop with severe eccentric MR
and also evidence of more severe TR. Patient then had GABRIELA on 03/27/2024 which showed preserved EF and severe MR. Patient was seen by CT surgery as an outpatient on 03/28/2024 and it was felt that she would be a candidate for MVR, TVR, MAC and DUSTIN
clip. Patient has a history of persistent atrial fibrillation.
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
Subjective
Date of Service: May 01, 2024
No SOB
Objective
Labs:
05/01/24 04:38
05/01/24 04:38
Labs
Hgb 9.5 g/dL (12.0-16.0) L 05/01/24 04:38
Hct 28.1 % (37.0-47.0) L 05/01/24 04:38
Plt Count 98 10^3/uL (130-400) L 05/01/24 04:38
PT 14.8 Sec (11.4-14.6) H 04/28/24 04:06
INR 1.18 04/28/24 04:06
APTT 29.4 Sec (23.4-35.0) 04/27/24 11:17
Sodium 133 mmol/L (135-145) L 05/01/24 04:38
Potassium 5.0 mmol/L (3.5-5.1) 05/01/24 04:38
BUN 60 mg/dl (7-17) H 05/01/24 04:38
Creatinine 1.7 mg/dL (0.6-1.0) H 05/01/24 04:38
Glucose 113 mg/dl (70-99) H 05/01/24 04:38
Vital Signs and I&O:
Vital Signs
Temp Pulse Resp BP Pulse Ox
98.3 F 78 17 111/70 93
05/01/24 08:06 05/01/24 09:00 05/01/24 08:06 05/01/24 08:49 05/01/24 08:31
Vital Signs
Temp Pulse Resp BP Pulse Ox
98.3 F 78 17 111/70 93
05/01/24 08:06 05/01/24 09:00 05/01/24 08:06 05/01/24 08:49 05/01/24 08:31
Intake & Output
04/29/24 04/30/24 05/01/24 05/02/24
06:59 06:59 06:59 06:59
Intake Total 691.0 / 691.0 560 / 560 480 / 480 30 / 30
Output Total 945 / 945 345 / 345 1650 / 1650 600 / 600
Balance -254.0 / -254.0 215 / 215 -1170 / -1170 -570 / -570
Physical Exam
Physical Exam
GEN: AAOx3
HEENT: MMM
LUNGS: No audible wheezes
CV: SR/paced on tele
ABD: ND
EXT: No edema B/L
NEURO: Gross non-focal
SKIN: No rash
--- NOTE | 2024-05-01 12:15 | PTCARENOTE ---
VS obtained, assessment stable. Patient remains oob in chair, resting comfortably.
[2024-05-01] MEDS: TYLENOL 1000 MG PO ×2 (14:23→22:58)
[2024-05-01] MEDS: LOPRESSOR 12.5 MG PO (14:24)
--- NOTE | 2024-05-01 15:01 | CM ---
Reviewed chart. Met with and Mrs. Pimentel to review discharge plans. She states she is having some SOB today. Mr. Pimentel states she maybe able to go home. We reviewed a home visit by the Transitional Care Nurse. She is agreeable to the home visit.
Her spouse states he will be home to assist in her care. Medical work-up in progress. The discharge plan is to return home with her family and a home visit by the Cardiothoracic Transitional Care Nurse when medically stable.
--- NOTE | 2024-05-01 16:15 | PTCARENOTE ---
VS obtained, assessment stable. at bedside for visit. DONATO Maximilian at bedside, patient updated to plan of care re IR c/s.
[2024-05-01] MEDS: SENOKOT-S PO (20:49)
--- NOTE | 2024-05-01 21:00 | PTCARENOTE ---
Report received from BARRETT Balbuena. Walking rounds done. Pt sitting in recliner chair.VS done. Helped to BR to void 300 msl of clear, yellow urine and have a BM ( see flowsheet). Pt helped back to bed. Assessed. Pt alert, oriented x 4. Speech clear.
Equal extremity strength x 4. Uses rolling walker for balance. Pt 96% on room air. + PATEL with activity and with talking at times. BBS present. + expiratory wheezing present. More decreased to L base, nursing home up. Ed, PA at bedside. Xopenex tx
ordered. 2L/NC applied while pt in bed. Sats 100%. CDB and IS encouraged. Flutter valve encouraged.
Audible heart tones. Pt with PPM. A and V paced rhtyhm. BP 101/59 on L arm. Metoprolol held. Extra amiodarone given, 200 mg. For pulse and wound assessments, see flowsheets. Surgibra on. Belly soft, nontender. Normoactive bs x 4.
CHG bath given to pt. Ongoing plan of care.
[2024-05-01] MEDS: LOPRESSOR PO (21:59)
[2024-05-01] MEDS: XOPENEX 1.25 MG INHALANT SOLUTION INH (22:12)
[2024-05-02] VITALS (17 sets, daily range): BP systolic 70–115; BP diastolic 56–69; PULSE 100; BMI 26.4
--- NOTE | 2024-05-02 | PTCARENOTE ---
VS done. See flowsheet. CHG bath done. Scheduled meds given. Pt going to sleep for evening.
--- NOTE | 2024-05-02 00:48 | PTCARENOTE ---
Addendum entered by Zurdo Cooper RN 05/02/24 01:00:
Voided 400 mls, clear, yellow urine.
Original Note:
VS done. Pt to be assisted to BR. States she needs to void. No c/o pain. Remains AV paced. On 2L/NC. Sats 100%. Remains with moist cough, productive intermittently. BP 109/58.
--- NOTE | 2024-05-02 04:14 | W.PN.CT ---
Today's Communication / Plan
-
Plan:
-No major issues overnight. Hemodynamically and neurologically intact
-Off all drips
-Currently A/V paced @ 70 bpm with own PPM
-BP has been soft postop, will add Toprol XL 12.5 mg BID given intermittent tachycardia
-Creatinine is at baseline of 1.6 (baseline 1.1-1.7)
-Monitor hyponatremia improving, 132 today, was 133 yesterday
-Monitor thrombocytopenia, 93K, was 98K yesterday
-Wt is up 18 lbs from preop, will cont. diuresis today. Fluid restriction. Diuresed 2925 mL/24hrs
-IR consulted for left thoracentesis
-Will resume Eliquis at a lower dose of 2.5 mg po bid (CKD pt). Will discuss resumption after thoracentesis or maybe tomorrow in light of thrombocytopenia
-Cont. current meds (ASA, Crestor, Amiodarone, BB on hold given postop soft BP)
-D/C cordis
-No temporary PW, has own PPM
-Encourage use of IS
-OOB into chair/Ambulate
-PT/OT evaluation recommend going home with home visits from CT Surgery visiting nurse
-Likely tomorrow
Assessment / Plan
-
Assessment:
S/P Standard sternotomy with aortic and bicaval cannulation/Complex mitral valve repair [32 mm been anoplasty, triangular resection, [place]-Jonh cords to P1 and P2, free margin plication, commissuralplasty at A3 P3]/Tricuspid valve repair [28 mm band
angioplasty]/Left atrial maze [RF ablation with encompass clamp and cryoablation]/Left atrial appendage exclusion [45 mm clip], by Dr. Gomez, 04/27/24, pod#5
-Degenerative mitral valve insufficiency, secondary to prolapse and flail with multiple torn cords of the P2 segment, type II pathology
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
-Acute on chronic diastolic heart failure with preserved left ventricular ejection fraction with volume overload requiring Lasix outpatient
-LVEF 60-65% per intraop GABRIELA
-Mildly ectatic asc. aorta (4.3 cm)
-Persistent Atrial fibrillation
-Hypertension
-Right bundle branch block/ LAFB status post PPM
-Hx 2:1 HB
-Non-obstructive CAD
-COPD
-Former tobacco use, quit 10 year ago
-Abnormal chest CT 04/24/24 ( Persistent near complete atelectasis of the left lower lobe as above. Bilateral minimal pleural effusions), s/p bronch 04/25/24 showing no endobrachial lesions
-Chronic kidney disease, stage 3b
-Anemia of CKD
-S/P bladder suspension
-S/P appendectomy
-Acute blood loss/Anemia on chronic Anemia (stable without transfusion)
-Acute postop thrombocytopenia (stable without transfusion)
-Acute postop atelectasis/pleural effusion
-Acute postop hypovolemia with subsequent hypervolemia
-Acute postop hyponatremia, 134
-Acute postop VERO on CKD3b
Discussed patient care with: Cardiology, Nursing, Respiratory Therapy and Pharmacy
Subjective
Procedure
S/P Standard sternotomy with aortic and bicaval cannulation/Complex mitral valve repair [32 mm been anoplasty, triangular resection, [place]-Jonh cords to P1 and P2, free margin plication, commissuralplasty at A3 P3]/Tricuspid valve repair [28 mm band
angioplasty]/Left atrial maze [RF ablation with encompass clamp and cryoablation]/Left atrial appendage exclusion [45 mm clip], by Dr. Gomez, 04/27/24
-
Date of Service: May 02, 2024
Pt c/o mild incisional pain, otherwise feels well
Objective Data
-
PT 14.8 Sec (11.4-14.6) H 04/28/24 04:06
INR 1.18 04/28/24 04:06
APTT 29.4 Sec (23.4-35.0) 04/27/24 11:17
Vital Signs
Vital Signs
Temp Pulse Resp BP Pulse Ox
98.2 F 70 16 109/58 100
05/02/24 00:47 05/02/24 00:47 05/02/24 00:47 05/02/24 00:47 05/02/24 00:47
CT Intake/Output/Weight
05/01/24 05/01/24 05/02/24
06:59 18:59 06:59
Intake Total 230 / 480 370 / 440 70 / 440
Output Total 700 / 1650 1725 / 2425 700 / 2425
Balance -470 / -1170 -1355 / -1984 -630 / -1984
SaO2: 100 (2L)
Physical Exam
-
General: Awake, Oriented and AOx3
Cardiovascular: Regular rate & rhythm, No Murmurs and No Gallop
Respiratory: Decreased Breath Sounds
Sternum: Stable
Incision: Clean, Dry, Intact and Dressing Intact
Extremities: Edema +3
Data Reviewed
-
Lab Results: Results Reviewed
Medications: Active Meds Reviewed
Chest X-Ray: Report Reviewed and Image Reviewed
ECG: Report Reviewed and Image Reviewed
--- NOTE | 2024-05-02 04:37 | DOWNTIME ---
There was a [employer] On Site Construction Superintendent Downtime on 05/02/2024 from 0100 to 05/02/2024 at 0355. Downtime documentation of patient's care, including medication administrations, has been reconciled in the electronic record per guidelines. Refer to the
patient's paper chart under the miscellaneous tab to see printed paper medication records and downtime forms.
--- NOTE | 2024-05-02 05:03 | PTCARENOTE ---
VS done. See flowsheet. Pt helped to BR to void 500 mls clear, yellow urine. Helped back to bed. Labs drawn and sent.
[2024-05-02 05:42] LABS: Blood Urea Nitrogen 63 mg/dl (7-17); Calcium 9.8 mg/dl (8.4-10.2); Carbon Dioxide 29 mmol/L (22-30); Chloride 94 mmol/L (98-107); Estimated Creatinine Clearance 25 ml/min; Glucose 114 mg/dl (70-99); Potassium 4.2 mmol/L (3.5-5.1); Sodium 132 mmol/L (135-145)
[2024-05-02 05:58] LABS: Hematocrit 26.4 % (37.0-47.0); Hemoglobin 8.9 g/dL (12.0-16.0); Mean Corp Hgb Conc. 33.7 g/dL (33.0-37.0); Mean Corpuscular Volume 97.8 fL (81.0-99.0); Mean Platelet Volume 10.8 fL (7.4-10.4); Platelet Count 93 10^3/uL (130-400); Red Cell Dist. Width 13.9 % (11.5-14.5); White Blood Cell Count 10.3 10^3/uL (4.8-10.8)
[2024-05-02] MEDS: TYLENOL 1000 MG PO ×3 (06:47→23:21)
--- NOTE | 2024-05-02 09:11 | PTCARENOTE ---
received pt from day shift nurse. pt resting in chair during time of assessment. pt AAOx3, pt 100% A/V paced per monitor, palpable pulses, B/L LE +2 edema, lungs diminished at bases, expiatory wheeze heard on auscultation, non-productive cough, pt
SOB on exertion, pox 96% on RA, +bs, voids, sternal incision approx. quality assurance lab technician, surgical bra in place, RIJ cordis intact, piv intact, plan of care discussed, questions encouraged
[2024-05-02] MEDS: SENOKOT-S PO ×2 (09:38→21:36)
[2024-05-02] MEDS: PROTONIX 40 MG PO (09:42)
[2024-05-02] MEDS: CRESTOR 20 MG PO (09:42)
[2024-05-02] MEDS: MUCINEX 1200 MG PO ×2 (09:43→23:19)
[2024-05-02] MEDS: NEURONTIN 100 MG PO ×3 (09:43→23:20)
[2024-05-02] MEDS: LOW STRENGTH ASPIRIN 81 MG PO (09:43)
[2024-05-02] MEDS: LASIX 40 MG IV (09:44)
[2024-05-02] MEDS: TOPROL XL 12.5 MG PO ×2 (09:44→23:20)
[2024-05-02] MEDS: LIDOCAINE 4% PATCH TOPICAL (09:45)
[2024-05-02] MEDS: PACERONE 200 MG PO ×3 (09:45→23:20)
[2024-05-02] MEDS: KCL 10 MEQ PO (09:52)
[2024-05-02] MEDS: ELIQUIS 2.5 MG PO ×2 (10:28→23:19)
[2024-05-02] MEDS: NSS 500 IV (12:00)
--- NOTE | 2024-05-02 12:45 | PTCARENOTE ---
pt VSS, oriented. 100% AV paced on the monitor, HR 70-90s. LCW PPM, DDD 70-130. SBP 90-100s. palpable pulses, +2 LE edema. pt on RA, 95% POX. IS encouraged. chest PT performed. IS and Acapella encouraged. pt abdomen s/n, denies n/v. diet tolerated
well. +BM. voids. ambulates w/ RW. sternal incision REPAIRER KILN CAR, chest tube sites ANGELICA. L lateral back bandaid in place. RIJ cordis in place. PIV. OOB in chair for lunch. see worklist for VS, I&O, and assessment.
--- NOTE | 2024-05-02 14:16 | CM ---
Reviewed chart. Met with Mrs. Pimentel to review discharge plans. She states she is feeling better after her thoracentesis. She is hoping she will be able to go home soon. Prior to admission she resides with her spouse, granddaughter and her fiance in
a two story home with two steps to enter. She has a feel flight of steps to get to bedroom. Her full bathroom is the first floor. Prior to admission she was independent with ambulation and adls. She ambulated 100 feet x 2 with supervision today.
She has a bedside commode on the second floor to use. She has a prescription plan and uses [facility]. Her spouse will be home to assist in her care if needed. Medical work-up in progress. The discharge plan is to return home with her
family and a home visit by the Transitional Care Nurse when medically stable.
--- NOTE | 2024-05-02 14:42 | W.PN.CARDCBS ---
Addendum entered and electronically signed by Julio Cesar Coello DO 05/02/24 16:28:
I saw and examined the patient.
The Slip Laster's note was reviewed and I agree with the note.
Comment:
Plan:
Continues to do well post op
Wt continues to come down and is down 2 lbs overnight with Lasix 40 mg IV BID. Patient weighed 126 lbs on day of admission, 04/24/24. Weight down to 144 lbs on 05/02/24 with IV diuresis.
New persistent Afib on admission and now in SR/AV paced. Cont amiodarone 200 mg TID, patient has received 2.0 gram load as of 05/02/24 AM.
Cont Toprol XL 12.5 mg BID, new this admit
Eliquis 2.5 mg BID starting 05/02/24 PM. Patient was taking Eliquis 5 mg BID prior to admission, but dose lowered due to Cre now greater than 1.5 and age 78.
Echo is pending.
Original Note:
Today's Communication / Plan
-
Echo report pending
Impression / Plan
-
PCP: Dr. Hiren Gamino
Cardiology: Dr. nKox
Impression:
Status post complex mitral valve repair, tricuspid valve repair, left atrial maze and DUSTIN clip 04/27/24
Severe MR and moderate TR by GABRIELA 03/27/24
Persistent Afib
Chronic Eliquis OAC, last dose 04/23/24 AM
HTN
Former smoker
Abnormal chest CT 04/24/24, s/p bronch 04/25/24 showing no endobrachial lesions
Nonobstructive CAD by cath at 05/04/23
RBBB
LAFB
h/o 2:1 AV block at time of cath 04/2023
CKD 3b
RHC 04/24/24: RA 11, PA 34/22, PCWP 21, CO/CI: 2.7/1.7, [place] remains in place
Bronch 04/25/24 (performed due to abnl chest CT showing near complete collapse of LLL, concern for obstructing mass): no endobrachial lesions, + thick secretions, lavage w/ removal of mucous plugs and secretions
GABRIELA 03/27/2024: EF 60 to 65%, normal regional wall motion, severe mitral valve prolapse at predominantly P2 with a likely torn cord, eccentric jet of severe MR with peak E wave velocity 1.3M/S, mean gradient 2 mmHg, mild aortic regurgitation,
moderate TR
TTE 05/02/24: report pending
Plan:
-Weight is down 2 lbs overnight with Lasix 40 mg IV BID. Patient weighed 126 lbs on day of admission, 04/24/24. Weight down to 144 lbs on 05/02/24 with IV diuresis.
-Patient with persistent Afib on admission and now in SR/AV paced. Cont amiodarone 200 mg TID, patient has received 2.0 gram load as of 05/02/24 AM.
-New to Toprol XL 12.5 mg BID
-Echo report pending for 05/02/24
-Eliquis 2.5 mg BID starting 05/02/24 PM. Patient was taking Eliquis 5 mg BID prior to admission, but dose lowered due to Cre now greater than 1.5 and age 78.
HPI: Patient came to today for elective admission prior to planned MVR, TVR, MAZE and DUSTIN clip on 04/27/24 for severe MR, moderate TR and persistent Afib, cardiology now consulted to follow along. Patient sees Dr. Knox at [facility]. Patient had an
abnormal stress test in the fall 2022 and was then referred for cardiac catheterization which was performed on 05/04/2023. Patient had near normal coronary arteries at time of cardiac cath 05/04/2023. Patient also noted to have intermittent 2-1 AV
block with heart rates in the 40s during the procedure and so her outpatient dose of metoprolol was stopped. Patient had a repeat echo a couple of months after cardiac cath that showed clear prolapse of a posterior scallop with severe eccentric MR
and also evidence of more severe TR. Patient then had GABRIELA on 03/27/2024 which showed preserved EF and severe MR. Patient was seen by CT surgery as an outpatient on 03/28/2024 and it was felt that she would be a candidate for MVR, TVR, MAC and DUSTIN
clip. Patient has a history of persistent atrial fibrillation.
Progress Note - Pulp Piler
Subjective
Date of Service: May 02, 2024
Feels better than she did prior to admission
Objective
Labs:
05/02/24 05:01
05/02/24 05:01
Labs
Hgb 8.9 g/dL (12.0-16.0) L 05/02/24 05:01
Hct 26.4 % (37.0-47.0) L 05/02/24 05:01
Plt Count 93 10^3/uL (130-400) L 05/02/24 05:01
PT 14.8 Sec (11.4-14.6) H 04/28/24 04:06
INR 1.18 04/28/24 04:06
APTT 29.4 Sec (23.4-35.0) 04/27/24 11:17
Sodium 132 mmol/L (135-145) L 05/02/24 05:01
Potassium 4.2 mmol/L (3.5-5.1) 05/02/24 05:01
BUN 63 mg/dl (7-17) H 05/02/24 05:01
Creatinine 1.6 mg/dL (0.6-1.0) H 05/02/24 05:01
Glucose 114 mg/dl (70-99) H 05/02/24 05:01
Vital Signs and I&O:
Vital Signs
Temp Pulse Resp BP Pulse Ox
97.8 F 88 16 104/61 95
05/02/24 12:07 05/02/24 14:00 05/02/24 12:07 05/02/24 12:11 05/02/24 12:09
Vital Signs
Temp Pulse Resp BP Pulse Ox
97.8 F 88 16 104/61 95
05/02/24 12:07 05/02/24 14:00 05/02/24 12:07 05/02/24 12:11 05/02/24 12:09
Intake & Output
04/30/24 05/01/24 05/02/24 05/03/24
06:59 06:59 06:59 06:59
Intake Total 560 / 560 480 / 480 480 / 480 0 / 0
Output Total 345 / 345 1650 / 1650 2925 / 2925 1000 / 1000
Balance 215 / 215 -1170 / -1170 -2445 / -2445 -1000 / -1000
Physical Exam
Physical Exam
GEN: AAOx3
HEENT: MMM
LUNGS: No audible wheezes
CV: SR/paced on tele
EXT: No edema B/L
NEURO: Gross non-focal
SKIN: No rash
[2024-05-02] MEDS: DUONEB 3 ML INH (15:21)
--- NOTE | 2024-05-02 16:00 | PTCARENOTE ---
pt VSS, no changes in assessment. pt ambulated in hallway w/ RW and stand by assist. voids in bathroom. at bedside.
--- NOTE | 2024-05-02 20:15 | PTCARENOTE ---
Report received from BARRETT Porter. Walking rounds done. VS done. Pt assessed. Pt requested to walk on unit, in hallway. Walked ~ 204 feet with rolling walker, on room air. Reported mild PATEL at end of walk. Sats on room air 96-97%. Pt normotensive at
110/56. AV paced with PPM, rate 70-80's.
Pt oriented x 4. Speech clear. Equal extremity strength x 4. BBS present. More movement auscultated to L posterior lung riley after L thoracentesis. IS and flutter valve encouraged. IS peak 1000 mls. Decreased bibasilarly. Audible heart tones. For
pulse and wound assessments, see flowsheets. Surgibra on. +2 BLE edema. MIGUEL knee-high stockings on. Legs elevated on 1 pillow overnight. Skin with scattered bruises to L wrist, arms, chest incision. Belly soft, nontender. Normoactive bs x 4. Voids
clear, yellow urine in toilet. Measuring UO. Discussed fluid restriction and HF. at bedside. Ongoing plan of care.
[2024-05-02] MEDS: LIDOCAINE 4% PATCH 1 PATCH TOPICAL (23:50)
[2024-05-03] VITALS (8 sets, daily range): BP systolic 88–123; BP diastolic 50–76; PULSE 73; BMI 26.2
--- NOTE | 2024-05-03 | PTCARENOTE ---
VS done. See flowsheet. CHG bath done. Scheduled meds given. Pt going to sleep for evening.
--- NOTE | 2024-05-03 04:15 | PTCARENOTE ---
VS done. Pt to BR with rolling walker, 1 person assist. Voided 350 mls clear, yellow urine. Pt then weighed on standing scale. Pt helped back to bed per request. Labs drawn and sent.
[2024-05-03 05:14] LABS: Hematocrit 26.6 % (37.0-47.0); Hemoglobin 8.9 g/dL (12.0-16.0); Mean Corp Hgb Conc. 33.5 g/dL (33.0-37.0); Mean Corpuscular Hgb 32.2 pg (27.0-31.0); Mean Corpuscular Volume 96.4 fL (81.0-99.0); Mean Platelet Volume 10.4 fL (7.4-10.4); Platelet Count 113 10^3/uL (130-400); Red Blood Cell Count 2.76 10^6/uL (4.20-5.40); Red Cell Dist. Width 14.5 % (11.5-14.5); White Blood Cell Count 9.4 10^3/uL (4.8-10.8)
[2024-05-03 05:26] LABS: Blood Urea Nitrogen 66 mg/dl (7-17); Calcium 9.8 mg/dl (8.4-10.2); Carbon Dioxide 30 mmol/L (22-30); Chloride 95 mmol/L (98-107); Estimated Creatinine Clearance 25 ml/min; Glucose 103 mg/dl (70-99); Magnesium 1.9 mg/dl (1.6-2.3); Potassium 4.6 mmol/L (3.5-5.1); Sodium 133 mmol/L (135-145); eGFR 38.03
[2024-05-03] MEDS: TYLENOL 1000 MG PO (06:35)
--- NOTE | 2024-05-03 07:03 | W.PN.CT ---
Today's Communication / Plan
-
-pod #6
-no issues overnight, no complaints, walked without issues last night
-diuresing. UO 950/2250 in 12/24 hrs
-Cr improving - 1.4 today
-AV-paced overnight 70s
-continue Eliquis 2.5 bid
-plan for d/c home today
Assessment / Plan
-
Assessment:
S/P Standard sternotomy with aortic and bicaval cannulation/Complex mitral valve repair [32 mm been anoplasty, triangular resection, [place]-Jonh cords to P1 and P2, free margin plication, commissuralplasty at A3 P3]/Tricuspid valve repair [28 mm band
angioplasty]/Left atrial maze [RF ablation with encompass clamp and cryoablation]/Left atrial appendage exclusion [45 mm clip], by Dr. Gomez, 04/27/24, pod#6
-Degenerative mitral valve insufficiency, secondary to prolapse and flail with multiple torn cords of the P2 segment, type II pathology
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
-Acute on chronic diastolic heart failure with preserved left ventricular ejection fraction with volume overload requiring Lasix outpatient
-LVEF 60-65% per intraop GABRIELA
-Mildly ectatic asc. aorta (4.3 cm)
-Persistent Atrial fibrillation
-Hypertension
-Right bundle branch block/ LAFB status post PPM
-Hx 2:1 HB
-Non-obstructive CAD
-COPD
-Former tobacco use, quit 10 year ago
-Abnormal chest CT 04/24/24 ( Persistent near complete atelectasis of the left lower lobe as above. Bilateral minimal pleural effusions), s/p bronch 04/25/24 showing no endobrachial lesions
-Chronic kidney disease, stage 3b
-Anemia of CKD
-S/P bladder suspension
-S/P appendectomy
-Acute blood loss/Anemia on chronic Anemia (stable without transfusion)
-Acute postop thrombocytopenia (stable without transfusion)
-Acute postop atelectasis/pleural effusion
-Acute postop hypovolemia with subsequent hypervolemia
-Acute postop hyponatremia, 134
-Acute postop VERO on CKD3b
Discussed patient care with: Nursing and Care Team
Subjective
Procedure
S/P Standard sternotomy with aortic and bicaval cannulation/Complex mitral valve repair [32 mm been anoplasty, triangular resection, [place]-Jonh cords to P1 and P2, free margin plication, commissuralplasty at A3 P3]/Tricuspid valve repair [28 mm band
angioplasty]/Left atrial maze [RF ablation with encompass clamp and cryoablation]/Left atrial appendage exclusion [45 mm clip], by Dr. Gomez, 04/27/24
-
Date of Service: May 03, 2024
Objective Data
-
Lab Results
05/03/24 04:51
05/03/24 04:51
PT 14.8 Sec (11.4-14.6) H 04/28/24 04:06
INR 1.18 04/28/24 04:06
APTT 29.4 Sec (23.4-35.0) 04/27/24 11:17
Vital Signs
Vital Signs
Temp Pulse Resp BP Pulse Ox
98.1 F 76 16 118/76 96
05/03/24 04:15 05/03/24 04:15 05/03/24 04:15 05/03/24 04:15 05/03/24 04:15
CT Intake/Output/Weight
05/02/24 05/03/24 05/03/24
18:59 06:59 18:59
Intake Total 30 / 410 380 / 410
Output Total 1300 / 2250 950 / 2250
Balance -1270 / -1840 -570 / -1840
SaO2: 96
Physical Exam
-
General: Awake and AOx3
Cardiovascular: Regular rate & rhythm, No Murmurs and No Rub
Respiratory: Decreased Breath Sounds
Sternum: Stable
Incision: Clean, Dry and Intact
Extremities: Edema +1 (2+ DPs b/l)
Data Reviewed
-
Lab Results: Results Reviewed
Medications: Active Meds Reviewed
Chest X-Ray: Report Reviewed and Image Reviewed
ECG: Report Reviewed
--- NOTE | 2024-05-03 08:00 | PTCARENOTE ---
pt received from previous RN, oriented. 100% AV paced on the monitor, HR 70-80s. LCW PPM, DDD 70-130. SBP 90s. palpable pulses, +2 LE edema. pt on RA, 95% POX. lungs diminished, inspiratory wheeze. RT called for breathing tx. IS encouraged. chest PT
performed. pt abdomen s/n, denies n/v. diet tolerated well. +BM. voids. ambulates w/ RW. sternal incision HEEL SEAT TRIMMER, chest tube sites HEEL SEAT TRIMMER. L lateral back bandaid in place. RIJ cordis in place. PIV. OOB in chair. see worklist for VS, I&O, and assessment.
[2024-05-03] MEDS: DUONEB 3 ML INH (08:13)
[2024-05-03] MEDS: SENOKOT-S PO (08:30)
--- NOTE | 2024-05-03 08:47 | W.DCSUMMARY ---
Discharge Summary
Discharge Data
Date of Admission: 04/24/24
Date of Discharge: 05/03/24
Total time spent discharging patient (in min): 60
-
Pending Results: Yes
Additional Pending Results:
BMP on Monday 05/07 to be drawn by home health nurses with results called to our office/Dr. Alvarado
Hospital Course
Patient was admitted on April 24 for a right heart cath and [place] catheter placement. This was in anticipation of open heart surgery. Her volume status was optimized with intermittent diuresis as needed. CT of her chest during preoperative
evaluation showed left lower lobe collapse concerning for mucous plugging versus endobronchial tumor. Pulmonology was involved and they performed a bronchoscopy on the patient which showed mucous plugging. There was no evidence of endobronchial
lesions. Ultimately she recovered well, was medically optimized and underwent, tricuspid valve repair, radiofrequency encompass maze, cryo maze and left atrial appendage exclusion by Dr. Gomez on April 27. Please refer to his separately dictated
operative report for complete details. Postoperatively patient progressed well. She was transferred to the intensive care unit on dobutamine at 5, Levophed at 2, Precedex and insulin drips. She was extubated around 6 AM the following day. She
did require some IV fluid resuscitation overnight. She otherwise progressed on the usual postop path.
Postoperative day #1: Patient was transfused 1 unit of packed red blood cells for lightheadedness and labile blood pressures. Invasive monitoring lines were removed. [place] catheter was removed. She was weaned from vasoactive medications that
morning. She was maintained on nasal cannula oxygen with appropriate saturations. She began working with cardiac rehab.
Postoperative day #2: Chest tubes were removed. The patient has a permanent pacemaker and therefore no epicardial wires were placed during surgery. She was given 25% albumin x 3 with IV Lasix that afternoon. She had a plateauing acute kidney
injury with creatinine of 1.9. There were no other new concerns.
Postoperative day #3: She was again given IV diuresis. Creatinine began trending down. Physical therapy was consulted. They cleared her for home with a rolling walker. Pacemaker was returned to preoperative settings. She was weaned to room air.
Postoperative day #4: She was given IV diuresis with 40 mg of Lasix x 2. Beta-humberto was restarted. She was noted to have a moderate left pleural effusion for which interventional radiology was consulted. They performed a thoracentesis which
yielded 700 cc of bloody pleural fluid. Eliquis was held today in anticipation of this procedure.
Postoperative day #5 Eliquis was restarted. Dose was decreased to 2.5 mg twice daily given her age and frailty. She was again given IV Lasix. There was some consideration for discharge today however she was kept to further observe and diurese as
needed.
Postoperative day #6: Patient was seen in the morning by Dr. Gomez. She was cleared for discharge to home with a Lasix taper. We will plan on 1 week of 40 mg twice daily followed by 1 week of 40 mg daily. Potassium was intermittently borderline
high during her admission and she was only sporadically repleted while on loop diuretics. She will be sent home on 20 mEq daily with a repeat BMP to be done on Monday 05/07. We will reassess her potassium needs at that time. I reviewed the
discharge instructions with the patient in detail and answered her questions to her satisfaction prior to her leaving today. She will follow-up with her usual hydrostatic tubing tester, Dr. Alvarado, for further medical management.
Discharge Plan
-
Patient Disposition: Home (Routine Discharge)
Discharge Diagnosis/Procedures: Status post standard sternotomy with aortic and bicaval cannulation/Complex mitral valve repair [32 mm been anoplasty, triangular resection, Firth-Jonh cords to P1 and P2, free margin plication, commissuralplasty at A3
P3]/Tricuspid valve repair [28 mm band angioplasty]/Left atrial maze [radiofrequency ablation with encompass clamp and cryoablation]/Left atrial appendage exclusion [45 mm clip], by Dr. Gomez, 04/27/24
-Degenerative mitral valve insufficiency, secondary to prolapse and flail with multiple torn cords of the P2 segment, type II pathology
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
-Acute on chronic diastolic heart failure with preserved left ventricular ejection fraction with volume overload requiring Lasix outpatient
-Left ventricular ejection fraction 60-65% per intraop GABRIELA
-Mildly ectatic ascending aorta (4.3 cm)
-Persistent Atrial fibrillation
-Hypertension
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
-Non-obstructive coronary artery disease
-Chronic obstructive pulmonary disease
-Former tobacco use, quit 10 year ago
-Abnormal chest CT 04/24/24 ( Persistent near complete atelectasis of the left lower lobe as above. Bilateral minimal pleural effusions), status post bronch 04/25/24 showing no endobrachial lesions
-Chronic kidney disease, stage 3b
-Anemia of CKD
-Status post bladder suspension
-Status post appendectomy
-Acute blood loss/Anemia on chronic Anemia (stable without transfusion)
-Acute postoperative thrombocytopenia (stable without transfusion)
-Acute postoperative atelectasis/pleural effusion
-Acute postoperative hypovolemia with subsequent hypervolemia
-Acute postoperative hyponatremia, 134
-Acute postoperative VERO on CKD3b
Diet: Low Cholesterol and Low Sodium
Activity: No strenuous activity
Driving Restrictions: Not until seen by your Dr
Blood Work: Please have a BMP drawn on Tuesday with results called to Dr. Gomez's team to check your potassium and kidney function
Specialty Instructions: Weigh Daily- Call MD for wt gain/loss 3 lbs overnight/5 lbs in 1 week
Activity Restrictions/Additional Instructions:
Please call [facility] to schedule your first visit at [phone]
ACTIVITY:
-No strenuous activity: no heavy lifting, pushing, pulling anything over 15 pounds for one month
-continue to use stairs as tolerated
DRIVING RESTRICTIONS:
-No driving for one month or until approved by your surgeon
WOUND CARE:
-Shower daily. Use soap & water.
-No lotions, creams or powders on incision area.
DIET:
-continue a low fat/low cholesterol diet.
-IF you are diabetic, continue carb controlled diet.
CARDIAC REHAB:
-Please make appointment to start in 5-6 weeks with your local hospital program. (See Cardiac Rehabilitation Discharge Booklet).
SPECIALTY INSTRUCTIONS:
-Weigh yourself daily. Call your physician for any weight gain/loss of 3 lbs overnight or 5 lbs in one week.
-REPORT any clicking noise or uneven appearance of your sternum to your surgeon immediately.
-If you smoke, you are instructed to quit. The [place] smoking hotline phone number is [phone]
Referrals:
[facility] Transitional Care Nurse [Outside] - in one to two days
Kolton Mcgarry MD [Active] - in three to four weeks (PFTs and 6-minute walk test)
Hiren Gamino DO [Family Provider] - in four to six weeks (Please amke an appointment in four to six weeks.)
Owen Gomez MD [Active] - 05/30/24 2:30 pm
Pamela Knox MD [Active] - 06/08/24 11:15 am
Prescriptions:
New
Eliquis 2.5 mg Tablet
2.5 mg PO BID Qty: 60 2RF
furosemide 40 mg tablet
40 mg PO BID Qty: 21 0RF
Rx Instructions:
Take 40 mg twice daily for 1 week. Then take 40 mg once daily for 1 week
acetaminophen 325 mg Tablet
650 mg PO Q4HPRN PRN (Reason: mild pain,headache,temp >101F ) Qty: 60 0RF
aspirin 81 mg Tablet,Chewable
81 mg PO DAILY Qty: 60 0RF
metoprolol succinate 25 mg Tablet Extended Release 24 Hr
12.5 mg PO BID Qty: 60 2RF
oxycodone 5 mg Tablet
5 mg PO Q4HPRN PRN (Reason: moderate pain) Qty: 30 0RF
potassium chloride 20 mEq tablet extended release
20 meq PO DAILY 14 Days Qty: 14 0RF
Continued
ipratropium-albuterol 0.5 mg-3 mg(2.5 mg base)/3 mL Solution For Nebulization
3 ml INHALATION PRN PRN (Reason: SOB)
rosuvastatin 20 mg Tablet
20 mg PO DAILY
uw-il-ayvf-FA-Ca carb-vit K 18 mg iron-400 mcg-500 mg Tablet
1 tab PO DAILY
Discontinued
amlodipine 2.5 mg Tablet
2.5 mg PO DAILY
ramipril 5 mg Capsule
5 mg PO DAILY
Eliquis 5 mg Tablet
5 mg PO BID
Discharge Orders:
Discharge Patient (As Directed); Ordered 05/03/24
Ordered By: Ministerio Perez
Care Plan Goals
Care Plan Goals:
Problem: Readiness for enhanced knowledge related to diagnosis and treatment plan
Goal: Understand your diagnosis and treatment plan needs, including medications if applicable.
Instructions: Know your diagnosis, underlying causes and treatment plan options, including medications if applicable. Consult with your health care team to learn about your diagnosis and treatment plan, including medications if applicable.
Discharge Date and Time
Print Language: [place]
[2024-05-03] MEDS: LASIX 60 MG PO (09:00)
[2024-05-03] MEDS: MAGNESIUM SULFATE 50 IV (09:00)
[2024-05-03] MEDS: NEURONTIN 100 MG PO (09:01)
[2024-05-03] MEDS: ELIQUIS 2.5 MG PO (09:01)
[2024-05-03] MEDS: PACERONE 200 MG PO (09:01)
[2024-05-03] MEDS: PROTONIX 40 MG PO (09:02)
[2024-05-03] MEDS: CRESTOR 20 MG PO (09:02)
[2024-05-03] MEDS: LOW STRENGTH ASPIRIN 81 MG PO (09:02)
[2024-05-03] MEDS: MUCINEX 1200 MG PO (09:02)
[2024-05-03] MEDS: TOPROL XL PO (09:05)
[2024-05-03] MEDS: NSS IV (09:27)
--- NOTE | 2024-05-03 12:01 | CM ---
Reviewed chart. Met with Mrs. Pimentel to review discharge plans. She states she is feeling well and maybe able to go home soon. We reviewed a home visit by the Transitional Care Nurse. She is agreeable to home visit. Prior to admission she resides
with her spouse and family in a two story home with two steps to enter. She has a full flight of steps to get to bedroom. Her full bathroom is on the first floor. Prior to admission she was independent with ambulation and adls. She has a bedside
commode that she uses upstairs. Physical therapy gave her a rolling walker. Her spouse will be home to assist in her care if needed. Medical work-up in progress. The discharge plan is to return home with her spouse and family with a home visit by
the Transitional Care Nurse when medically stable.
--- NOTE | 2024-05-03 13:36 | PTCARENOTE ---
pt VSS, no changes in assessment. RIJ cordis dc'd, dressing c/d/i. discharge instructions reviewed w/ patient and granddaughter, home meds reviewed. questions answered. tele and IV dc'd. pt showered, dressed self. pt left w/ all belongings including
rolling walker.
== END 2024-05-03 13:35 | disposition home or self-care (01) | DRG 216 ==
LOC: CVICU 08:51
PROVIDERS: Anesthesiology; Clinical Nurse Specialist Acute Care; Internal Medicine Critical Care Medicine; Internal Medicine Interventional Cardiology; Nurse Practitioner Primary Care; Physician Assistant Medical; Radiology Diagnostic Radiology; ADMITTING PHYSICIAN Thoracic Surgery (Cardiothoracic Vascular Surgery); CONSULT PHYSICIAN Internal Medicine Critical Care Medicine; FAMILY PHYSICIAN Family Medicine; OTHER PHYSICIAN Internal Medicine Cardiovascular Disease
PROC: 4A023N6 Measurement of Cardiac Sampling and Pressure, Right Heart, Percutaneous Approach (ICD-10-PCS; 2024-04-24)
PROC: 0B9J8ZX Drainage of Left Lower Lung Lobe, Via Natural or Artificial Opening Endoscopic, Diagnostic (ICD-10-PCS; 2024-04-25)
PROC: 0B958ZX Drainage of Right Middle Lobe Bronchus, Via Natural or Artificial Opening Endoscopic, Diagnostic (ICD-10-PCS; 2024-04-25)
PROC: 02580ZZ Destruction of Conduction Mechanism, Open Approach (ICD-10-PCS; 2024-04-27)
PROC: 5A1221Z Performance of Cardiac Output, Continuous (ICD-10-PCS; 2024-04-27)
PROC: 02UJ0JZ Supplement Tricuspid Valve with Synthetic Substitute, Open Approach (ICD-10-PCS; 2024-04-27)
PROC: 02L70CK Occlusion of Left Atrial Appendage with Extraluminal Device, Open Approach (ICD-10-PCS; 2024-04-27)
PROC: 02BG0ZZ Excision of Mitral Valve, Open Approach (ICD-10-PCS; 2024-04-27)
PROC: 02UG0JZ Supplement Mitral Valve with Synthetic Substitute, Open Approach (ICD-10-PCS; 2024-04-27)
PROC: B24BZZ4 Ultrasonography of Heart with Aorta, Transesophageal (ICD-10-PCS; 2024-04-27)
PROC: 30233N1 Transfusion of Nonautologous Red Blood Cells into Peripheral Vein, Percutaneous Approach (ICD-10-PCS; 2024-04-28)
PROC: 0W9B3ZX Drainage of Left Pleural Cavity, Percutaneous Approach, Diagnostic (ICD-10-PCS; 2024-05-02)
DX: I34.0 Nonrheumatic mitral (valve) insufficiency (principal); I50.43 Acute on chronic combined systolic (congestive) and diastolic (congestive) heart failure; I51.1 Rupture of chordae tendineae, not elsewhere classified; I48.19 Other persistent atrial fibrillation; I13.0 Hypertensive heart and chronic kidney disease with heart failure and stage 1 through stage 4 chronic kidney disease, or unspecified chronic kidney disease; I45.2 Bifascicular block; J98.11 Atelectasis; T17.590A Other foreign object in bronchus causing asphyxiation, initial encounter; N17.9 Acute kidney failure, unspecified; D62 Acute posthemorrhagic anemia; E87.1 Hypo-osmolality and hyponatremia; J91.8 Pleural effusion in other conditions classified elsewhere; I36.1 Nonrheumatic tricuspid (valve) insufficiency; J44.9 Chronic obstructive pulmonary disease, unspecified; N18.32 Chronic kidney disease, stage 3b; I25.10 Atherosclerotic heart disease of native coronary artery without angina pectoris; W44.F9XA Other object of natural or organic material, entering into or through a natural orifice, initial encounter; D63.1 Anemia in chronic kidney disease; D69.59 Other secondary thrombocytopenia; E86.1 Hypovolemia; N99.0 Postprocedural (acute) (chronic) kidney failure; Z79.01 Long term (current) use of anticoagulants; Z79.899 Other long term (current) drug therapy; Z87.891 Personal history of nicotine dependence; Z95.0 Presence of cardiac pacemaker
CPT/HCPCS: 88305; 93308; 94727; 94729; 32555; 36600; 71045; 71046; 71250; 80048; 80053; 80076; 81003; 82330; 82565; 82805; 82810; 82947; 82962; 83036; 83735; 83880; 84132; 84302; 84520; 85014; 85018; 85027; 85049; 85610; 85730; 86850; 86900; 86901; 86920; 87015; 87070; 87102; 87116; 87205; 88112; 93005; 93312; 93320; 93321; 93325; 93451; 93880; 94002; 94060; 94640; 94668; 97116; 97163; 97167; 97530; 97535; C1769; J2916; P9016; P9045; P9047

== ENCOUNTER 2024-05-06 14:53 | Inpatient (IN) | payer OTHER, SELFPAY ==
[2024-05-06] VITALS (15 sets, daily range): BP systolic 77–136; BP diastolic 57–92; BMI 24.0; BMI 26.0
--- NOTE | 2024-05-06 09:41 | ED.GENMED ---
History of Present Illness
General
Chief Complaint: Breathing Problem
Time Seen by Provider: 05/06/24 09:39
History of Present Illness
History of Present Illness:
78-year-old female with history of CHF, anemia, atrial fibrillation on Eliquis, hypertension, COPD presenting to the emergency department for shortness of breath. Patient with recent hospital admission from 04/25 to 05/03, which time she had open
heart surgery for tricuspid valve repair and ablation for atrial fibrillation. Hospitalization was complicated by development of a left-sided pleural effusion requiring drainage. Patient notes that she had been feeling better upon discharge from
the hospital, however in the past few days has had increased difficulty breathing. Patient is on Lasix twice a day, notes lower extremity edema, which has improved in the past 2 days. She called her doctor prior to arrival, advised to come to the "[facility] for evaluation. Denies associated chest pain. Does note cough which is mildly productive. Denies any fever. Denies abdominal pain. Does note pain around her incision site, however no specific chest pain. Denies additional acute
medical complaints
Phy Exam
Physical Exam
Physical Exam:
General: Well-appearing, no clinical signs of dehydration, nontoxic and in no acute distress
HEENT: protecting airway
Neck: appears supple
CV: Normal heart rate, regular rhythm
Resp: Mild tachypnea. Diminished lung sounds and air movement to the left lung field.
Abd: Soft and non-distended, no tenderness to palpation
Extremities: No deformities, +1 pitting edema bilaterally.
Neuro: alert, no focal neurologic deficit
: deferred
Rectal: deferred
Psych: Normal affect
Skin: Intact
Scores
Heart Failure Risk
Heart Failure Risk Score: Yes
History of Stroke or TIA: No
History of intubation for respiratory distress: No
Heart rate on ED arrival >/= 110: No
SaO2 <90% on arrival on room air: No
HR >/=110 during 3min walk test (or too ill to perform test): Yes
ECG has acute ischemic changes: No
Urea >/=12mmol/L (BUN 33.6mg/dL): No
Serum CO2>/=35mmol/L: No
Troponin I or T elevated to [place] Level (0.4mg/dL): No
NT-proBNP >/=5,000ng/L (5,000pg/ml): Yes
HF Risk Score: 3
Admission Status: HIGH RISK 15.9% Consider SNF treatment or admission to hospital
Course
Orders/Labs/Results
Orders:
Orders
05/06/24 09:29
ECG [Electrocardiogram (*1)] Urgent
Reason for Study: Chest Pain
05/06/24 09:30
EKG- Treatment ONCE
05/06/24 09:57
CR Chest - 2 Views Urgent
Comment:
Reason For Exam: sob, s/p open heart surgery
05/06/24 Lunch
NPO
Allow oral meds: Yes
Allow clear liquids: Sips of Clears
Comment: until IR procedure
05/06/24 10:17
Complete Blood Count/With Diff Urgent
Comprehensive Metabolic Panel Urgent
NT-proBNP Urgent
PTT Urgent
Prothrombin Time Urgent
05/06/24 10:53
Admit Patient As Directed
Co-Sign Provider:
Level of Care: Observation services
Assign to:: IVU
Physician / Group: Demarco Ortez
Diagnosis: pleural effusion
Code Status As Directed
Resuscitation Status: Full Code
Bisacodyl [Dulcolax] 10 mg RECTAL [id number] PRN
Docusate W/Senna [Senokot-S] 1 tablet PO BIDPRN PRN
HYDROmorphone [Dilaudid] 0.25 mg IV Q4HPRN PRN
Ipratropium/Albuterol Sulfate [Duoneb] 3 ml INH R Q4HPRN PRN
Ondansetron Injectable [Zofran] 4 mg IV Q6HPRN PRN
Oxycodone [Roxicodone] 2.5 mg PO Q4HPRN PRN
Polyethylene Glycol Powder [Miralax] 17 grams PO DAILYPRN PRN
Activity As Directed
Activity Level: Ambulate
With Assistance
Pneumatic Compression Sleeves As Directed
Type: Knee high
Vital Signs As Directed
Frequency: Per unit guidelines
Weight As Directed
Frequency: Daily
PRN Pain Medication Management As Directed
May give lesser potent ordered pain med per pt: Yes
preference::
Protocol:: Medication orders for pain may be administered in a
manner that supports deferring to patient preference
when the pt is:
- Requesting an ordered lesser potent pain medication.
Least to most potent pain medications are defined
as: acetaminophen < NSAID < tramadol < opioids
(morphine, oxycodone, hydromorphone).
- Requesting a lesser dose of the same medication IF
ORDERED.
- Requesting a less intrusive route of administration
if both routes are prescribed by the provider (PO <
IV).
O2 Therapy [RESP] Routine
Titrate/Wean O2 to maintain O2 sat greater than (%): 92
Pulse Ox/spot Check [RESP] Routine
Quantity: 1
Rx Incentive Spirometry [RESP] Routine
Frequency: q1h while awake
# of times per hour: 10
DX Deep Vein Thrombosis Video Routine
05/06/24 11:05
Consult Interventional Radiology [IRAD CONSULT] Urgent
Consulting Provider: Pool Castellanos
Was physician already notified: Yes
Reason for Consult/Procedure: left chest tube for pleural effusion
Acknowledgement that appropriate orders are entered: Yes
05/06/24 12:00
Acetaminophen [Tylenol] 650 mg PO Q4HWA
Flush (0.9% Sodium Chloride) [Flush (Nss)] See Dose Instructions IV PER PROTOCOL
05/06/24 12:39
Lidocaine 2% [Xylocaine 2% Mdv] 20 ml .ROUTE .STK-MED ONE
05/06/24 12:41
Fentanyl Citrate/Pf [Sublimaze] 100 mcg .ROUTE .STK-MED ONE
Midazolam HCl [Versed] 2 mg .ROUTE .STK-MED ONE
05/06/24 13:00
Acetazolamide [Diamox] 125 mg PO DAILY
05/06/24 13:47
Activity As Directed
Activity Level: Bedrest for limited time
Bedrest duration in hours then activity as indicated above:: 1
Comment: after bedrest then resume previous activity orders
Chest Tube As Directed
Location: left lateral chest
To suction: Yes
Suction to __ centimeters of water: -20
May ambulate with suction off?: Yes
Comment: RECORD OUTPUT FROM CHEST TUBE EVERY SHIFT
Intake/ Output As Directed
Frequency: q12h
Comment: RECORD TUBE OUTPUT EVERY SHIFT
Surgical Procedure As Directed
Surgical Procedure: left chest tube placement
Vital Signs As Directed
Frequency: Other
Additional Instructions:: q15min x4, q30min x2, q1h x2 then routine if stable
05/06/24 14:00
Furosemide [Lasix] 40 mg IV ONCE ONE
05/06/24 20:00
Metoprolol Xl [Toprol Xl] 12.5 mg PO BID
05/06/24 22:00
Budesonide [Pulmicort] 0.5 mg INH HS
05/07/24 06:00
CR Chest Portable - 1 View IN AM
Comment:
Reason For Exam: pleural effusion
Reason Study Needs to be Portable: Unable to Transport
05/07/24 08:00
Aspirin Chewable [Low Strength Aspirin] 81 mg PO DAILY
Furosemide [Lasix] 40 mg PO BID AT 0800,1600
Rosuvastatin Calcium [Crestor] 20 mg PO DAILY
05/07/24 12:00
Potassium Chloride [KCl] 20 meq PO DAILY
05/08/24 06:00
CR Chest Portable - 1 View IN AM
Comment:
Reason For Exam: pleural effusion
Reason Study Needs to be Portable: Unable to Transport
05/09/24 06:00
CR Chest Portable - 1 View IN AM
Comment:
Reason For Exam: pleural effusion
Reason Study Needs to be Portable: Unable to Transport
Abnormal Lab Results
05/06/24
10:17
RBC 2.68 L 10^6/uL
(4.20-5.40)
Hgb 8.5 L g/dL
(12.0-16.0)
Hct 25.8 L %
(37.0-47.0)
MCH 31.7 H pg
(27.0-31.0)
MCHC 32.9 L g/dL
(33.0-37.0)
RDW 14.6 H %
(11.5-14.5)
Abs Immat Gran (auto) 0.1 H 10^3/uL
(0-0.05)
Absolute Neuts (auto) 8.7 H 10^3/uL
(1.4-6.5)
Absolute Lymphs (auto) 0.4 L 10^3/uL
(1.2-3.4)
Absolute Monos (auto) 1.1 H 10^3/uL
(0.1-0.6)
Immature Gran % 0.9 H %
(0-0.5)
Neutrophils % 83.5 H %
(42.2-75.2)
Lymphocytes % 4.2 L %
(20.5-51.1)
Monocytes % 10.2 H %
(1.7-9.3)
PT 19.5 H Sec
(11.4-14.6)
APTT 46.6 H Sec
(23.4-35.0)
Sodium 133 L mmol/L
(135-145)
Chloride 94 L mmol/L
(98-107)
Carbon Dioxide 31 H mmol/L
(22-30)
BUN 54 H mg/dl
(7-17)
Creatinine 1.4 H mg/dL
(0.6-1.0)
Glucose 133 H mg/dl
(70-99)
Total Protein 5.1 L g/dl
(6.3-8.2)
Albumin 2.9 L g/dl
(3.5-5.0)
05/06/24 10:17
05/06/24 10:17
Vital Signs
Initial and Last Documented VS:
Initial Vital Signs
Temp Pulse Resp BP Pulse Ox
98.3 F 82 20 110/92 94
05/06/24 09:26 05/06/24 09:26 05/06/24 09:26 05/06/24 09:26 05/06/24 09:26
Last Documented Vital Signs
Temp Pulse Resp BP Pulse Ox
98.3 F 77 26 114/64 97
05/06/24 13:49 05/06/24 13:05 05/06/24 13:05 05/06/24 13:05 05/06/24 13:05
MDM/Problems Addressed
MDM/Problems Addressed:
78-year-old female with history of CHF, anemia, atrial fibrillation on Eliquis, hypertension, COPD presenting to the emergency department for shortness of breath, status post hospitalization for tricuspid valve repair and ablation.
Vital signs on arrival significant for tachypnea. On exam patient is in no acute respiratory distress, however does have an abnormal lung exam with diminished air movement to the left lung field. Patient with recent large pleural effusion,
requiring IR drainage. Possible reaccumulation of fluid versus decompensated heart failure. Plan for laboratory analysis, chest x-ray imaging. Will discuss with CT surgery team.
10:45 - Chest x-ray shows a large left pleural effusion, consistent with examination. CT surgeon at bedside, Dr. Pal. Plan for IR drainage and admission. Patient will be admitted to the CT surgical service. Patient updated, agreeable to plan
*EKG
Interpreted by ED Provider?: Yes
EKG Intrepretation Date: 05/06/24
EKG Intrepretation Time: 09:41
Interpretation: normal
Comparison EKG: no changes (04/28/24)
Heart Rate: 91
Rate: normal
Rhythm: sinus and other (AV dual paced)
[place]: normal axis
Interval: normal interval
QRS Pattern: normal QRS
Ischemia: non-specific ST changes
*Critical Care Note
Total Time (30-74mins, 75-104mins- exclusive of procedures): Not Applicable
ED Attending Note
-
Portions of this chart may have been created with voice recognition software.� Occasional wrong word or��sound alike� substitutions may have occurred due to the inherent limitations of voice recognition software.
Discharge Plan
Departure
Patient Disposition: Admit
Date of Disposition: 05/06/24
Time of Disposition: 10:49
Presentation/result/management discussed w/ accepting MD/DO: CT Surgery
Patient with high blood pressure during this ER visit?: No
Condition: Fair
Discharge Problem:
Pleural effusion on left, Shortness of breath
Prescriptions:
No Action
ipratropium-albuterol 0.5 mg-3 mg(2.5 mg base)/3 mL Solution For Nebulization
3 ml INHALATION R Q6HPRN PRN (Reason: SOB)
rosuvastatin 20 mg Tablet
20 mg PO DAILY
dk-ps-xvfy-FA-Ca carb-vit K 18 mg iron-400 mcg-500 mg Tablet
1 tab PO DAILY
Eliquis 2.5 mg Tablet
2.5 mg PO BID Qty: 60 2RF
furosemide 40 mg tablet
40 mg PO BID Qty: 21 0RF
Rx Instructions:
Take 40 mg twice daily for 1 week. Then take 40 mg once daily for 1 week
acetaminophen 325 mg Tablet
650 mg PO Q4HPRN PRN (Reason: mild pain,headache,temp >101F ) Qty: 60 0RF
aspirin 81 mg Tablet,Chewable
81 mg PO DAILY Qty: 60 0RF
metoprolol succinate 25 mg Tablet Extended Release 24 Hr
12.5 mg PO BID Qty: 60 2RF
oxycodone 5 mg Tablet
5 mg PO Q4HPRN PRN (Reason: moderate pain) Qty: 30 0RF
potassium chloride 20 mEq tablet extended release
20 meq PO DAILY 14 Days Qty: 14 0RF
budesonide 0.5 mg/2 mL Suspension For Nebulization
0.5 mg INHALATION R HS
Referrals:
Hiren Gamino DO [Family Provider] -
Interventions
Interventions:
*Risk Screen - Suicide Last Done: 05/06/24 10:48
*General Assessment Last Done: 05/06/24 10:48
*Neglect/Abuse Screening Last Done: 05/06/24 10:48
ED- Fall Risk Assessment Last Done: 05/06/24 10:48
*ED COVID-19 Vaccine History Last Done: 05/06/24 10:48
ED- Cardiac Assessment Last Done: 05/06/24 10:48
ED- Pulmonary Assessment Last Done: 05/06/24 10:48
Discharge Date and Time
Print Language: IRANIAN
[2024-05-06 10:25] LABS: % Basophils 0.3 % (0-2); % Eosinophils 0.9 % (0-6); % Immature Granulocytes 0.9 % (0-0.5); % Lymphocytes 4.2 % (20.5-51.1); % Monocytes 10.2 % (1.7-9.3); % Neutrophils 83.5 % (42.2-75.2); Absolute Eosinophils 0.1 10^3/uL (0-0.7); Absolute Immature Granulocytes 0.1 10^3/uL (0-0.05); Absolute Lymphocytes 0.4 10^3/uL (1.2-3.4); Absolute Monocytes 1.1 10^3/uL (0.1-0.6); Absolute Neutrophils 8.7 10^3/uL (1.4-6.5); Hematocrit 25.8 % (37.0-47.0); Hemoglobin 8.5 g/dL (12.0-16.0); Mean Corp Hgb Conc. 32.9 g/dL (33.0-37.0); Mean Corpuscular Hgb 31.7 pg (27.0-31.0); Mean Corpuscular Volume 96.3 fL (81.0-99.0); Mean Platelet Volume 9.8 fL (7.4-10.4); Nucleated Red Blood Cells % 0 %; Platelet Count 187 10^3/uL (130-400); Red Blood Cell Count 2.68 10^6/uL (4.20-5.40); Red Cell Dist. Width 14.6 % (11.5-14.5); White Blood Cell Count 10.4 10^3/uL (4.8-10.8)
[2024-05-06 10:34] LABS: INR 1.66; PT 19.5 Sec (11.4-14.6)
[2024-05-06 10:35] LABS: APTT 46.6 Sec (23.4-35.0)
[2024-05-06 10:44] LABS: NT-proBNP 7700 pg/ml
[2024-05-06 10:45] LABS: ALT (SGPT) 19 U/L (0-35); AST (SGOT) 35 U/L (14-36); Albumin 2.9 g/dl (3.5-5.0); Alkaline Phosphatase 69 U/L (38-126); Blood Urea Nitrogen 54 mg/dl (7-17); Calcium 9.2 mg/dl (8.4-10.2); Carbon Dioxide 31 mmol/L (22-30); Chloride 94 mmol/L (98-107); Glucose 133 mg/dl (70-99); Potassium 4.5 mmol/L (3.5-5.1); Sodium 133 mmol/L (135-145); Total Bilirubin 0.5 mg/dl (0.2-1.3); Total Protein 5.1 g/dl (6.3-8.2); eGFR 38.03
--- NOTE | 2024-05-06 10:50 | EDRN ---
the pt was brought back from triage to ED Bed #10, the pt was tachypnic in the high 20's and had WOB, and the pts Sp02 was 91%, this RN placed the pt on 2L NC and notified the provider Dr. Hubbard, the pts Sp02 came up to 96%, the pt stated that she
felt better with the 02, will continue to monitor the pt closely
--- NOTE | 2024-05-06 11:42 | HPS.HSE ---
Family Physician
-
Family Physician: Hiren Gamino
Chief Complaint
-
shortness of breath
History of Present Illness
Patient is a very pleasant 78-year-old female well-known to our service who recently underwent a mitral valve repair, tricuspid valve repair exclusion of left atrial appendage and full MAZE on 04/[address] Gomez who called me from the answering
service this morning with complaints of feeling short of breath overnight and feeling significant chest pressure. I advised her to come to the emergency department where she was seen and evaluated and noted to have a large left pleural effusion on
chest x-ray. Prior to discharge patient had a left thoracentesis on 05/02/2024 for 700 mL of 'bloody pleural fluid '. She resumed her Eliquis for her chronic A-fib just after that procedure was completed and was discharged home the following day.
She is sitting upright in bed mildly tachypneic on O2 via nasal cannula with a saturation of 94%. She denies chest pain and fever.
Medical History
Past Medical History
Past Medical History: Reports Other
Additional Past Medical History:
chronic diastolic heart failure with preserved left ventricular ejection fraction
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 Gomez
Persistent Atrial fibrillation, now s/p MAZE/ELAA 04/27/24, chronically on eliquis
Hypertension
hx Right bundle branch block/ LAFB/2:1 heart block status post PPM
COPD
Former tobacco use, quit 10 year ago
Chronic kidney disease, stage 3b
Anemia of CKD with acute blood loss anemia, stable
recent bronchitis, tx at [facility] prior to hospitalization for heart surgery
postop pleural effusion s/p Left thoracentesis for 700ml 05/02/24
Past Surgical History: Reports Other
Additional Past Surgical History:
MV repair/TV repair/MAZE/ELAA by Dr. Gomez 04/27/24
S/P bladder suspension
S/P appendectomy
Social History
Tobacco: Former Smoker
Alcohol: Occasional
Drug: None
Personal:
Living: With Family
Employment: Retired
Family History
Family History: Not pertinent
Allergies / Home Medications
Allergies reflects when Allergies were last updated in [employer].
Home Medications with original date entered in [employer]
Allergy/Medication List:
Iodinated contrast
Home Medications Table - record
�Medication �Instructions �Recorded �Confirmed
ipratropium 0.5 mg-albuterol 3 mg 3 ml inhalation R Q6HPRN PRN SOB 05/04/23 05/06/24
(2.5 mg base)/3 mL nebulization
soln
rosuvastatin 20 mg tablet 20 mg PO DAILY High Cholesterol 05/04/23 05/06/24
qbzmzszd-fpy-vbff-FA-Ca carb-vit K 1 tab PO DAILY Supplement 03/27/24 05/06/24
18 mg iron-400 mcg-500 mg tablet
acetaminophen 325 mg tablet 650 mg (2 x 325 mg) PO Q4HPRN PRN 05/03/24 05/06/24
mild pain,headache,temp >101F #60
tabs
apixaban 2.5 mg tablet (Eliquis) 2.5 mg PO BID #60 tabs 05/03/24 05/06/24
aspirin 81 mg chewable tablet 81 mg PO DAILY #60 tabs 05/03/24 05/06/24
budesonide 0.5 mg/2 mL suspension 0.5 mg inhalation R HS 05/03/24 05/06/24
for nebulization
furosemide 40 mg tablet 40 mg PO BID #21 tabs 05/03/24 05/06/24
metoprolol succinate 25 mg 12.5 mg (1/2 x 25 mg) PO BID #60 05/03/24 05/06/24
tablet,extended release 24 hr tabs
oxycodone 5 mg tablet 5 mg PO Q4HPRN PRN moderate pain 05/03/24 05/06/24
#30 tabs
potassium chloride 20 mEq 20 meq PO DAILY 14 days #14 tabs 05/03/24 05/06/24
tablet,extended release
Review of Systems
-
History Source: Patient
A 12 point ROS was completed and negative except as noted: Yes
Constitutional: Reports Sleep Disturbance; Denies Fever
Respiratory: Reports Trouble Breathing
Cardiac: Reports Other (chest pressure)
Physical Exam
Vital Signs
Vital Signs
Temp Pulse Resp BP Pulse Ox
98.5 F 79 22 136/71 94
05/06/24 10:48 05/06/24 10:48 05/06/24 10:48 05/06/24 10:48 05/06/24 10:48
Physical Exam
General: No Apparent Distress (but mildly tachypneic)
Respiratory: Decreased Breath Sounds (left chest)
Cardiac: Irregular Rhythm
Skin: Other (MSI with dermabond c/d/i)
Neuro: Nonfocal/grossly intact
Laboratory Results
-
05/06/24 10:17
05/06/24 10:17
Laboratory Results
PT 19.5 Sec (11.4-14.6) H 05/06/24 10:17
INR 1.66 05/06/24 10:17
APTT 46.6 Sec (23.4-35.0) H 05/06/24 10:17
Total Bilirubin 0.5 mg/dl (0.2-1.3) 05/06/24 10:17
AST 35 U/L (14-36) 05/06/24 10:17
ALT 19 U/L (0-35) 05/06/24 10:17
Alkaline Phosphatase 69 U/L (38-126) 05/06/24 10:17
Data Reviewed
-
Diagnostic Radiology: Image Personally Visualized and interpreted, Report Reviewed by me and Discussed with Physician
Lab Data: Labs Reviewed by me
Impression/Plan
-
IMPRESSION:
PLAN:
*Large left pleural effusion, symptomatic, with mediastinal shift--likely hemorrhagic in nature 2/2 recent thoracentesis & anticoagulation with eliquis
- discussed with interventional radiology--recommend chest tube placement and admission to observation (in IVU) for full evacuation of effusion over the next 24-48hrs
- will hold eliquis at this time
- chest tube to -20 suction overnight, monitor I/O qshift
- daily CXRs
*chronic heart failure with preserved EF
- weight still above baseline from surgery, will give her a dose of IV lasix today and reassess for PO tomorrow
*hyponatremia
- continue lasix BID for volume overload, will give diamox x3 days as well
*chronic atrial fibrillation, s/p PPM
- holding eliquis at this time--pt recently discharged on 2.5mg BID due to recent VERO--she is also now >78 y/o and dry weight <60kg, would continue this adjustment at discharge
*recent MVr/TVr
- continue oxycodone as needed for post surgical pain or chest tube discomfort
*recent VERO on CKD
- creatinine slowly coming down, 1.4 today, continue to monitor
*COPD
- continue home nebs daily and PRN SOB
--- NOTE | 2024-05-06 13:47 | W.PN.IRAD.PR ---
Procedure Note
-
Successful left chest tube placement.
--- NOTE | 2024-05-06 15:01 | EDRN ---
this RN called the receiving IVU nurse and gave verbal report
[2024-05-06] MEDS: TYLENOL 650 MG PO ×2 (16:15→20:53)
[2024-05-06] MEDS: TYLENOL PO (16:15)
[2024-05-06] MEDS: LASIX 40 MG IV (16:15)
[2024-05-06] MEDS: DIAMOX 125 MG PO (16:16)
--- NOTE | 2024-05-06 18:08 | PTCARENOTE ---
Pt with left pleural effusion received from ED after placement of left lateral chest tube in IRAD, dressing dry and intact, no bleeding or crepitus noted. CT connected to wall suction, at -20cms water seal, no air leak or tidaling noted. Total
drainage since insertion today is 600mls of serosanguineous fluid. Pt reports 2/10 discomfort and declines any pain medication other than her scheduled tylenol. Pt with shallow resps, on 2L oxygen, she states she is feeling much better since CT was
placed. Pt given lasix once. Pt OOB to chair. IS to 1000mls only, weak effort. Plan for portable CXR in the morning. Telemetry shows AV paced rhythm.
[2024-05-06] MEDS: ROXICODONE 2.5 MG PO (18:48)
[2024-05-06] MEDS: PULMICORT 0.5 MG INH (19:03)
[2024-05-06] MEDS: TOPROL XL 12.5 MG PO (20:54)
--- NOTE | 2024-05-06 23:00 | PTCARENOTE ---
Pt received at change of shift sitting up in chair. VSS. AV paced on tele with HR in the 70s. Pt seems to get PATEL, pulse ox 99% on 2L. Pt does report having an occasional productive cough. L chest wall CT to -20 suction per order and draining
serosanguinous fluid. Dressing c/d/i with no complications noted. Up to bedside commode with x1 assist, rings appropriately. Call mukherjee within reach.
[2024-05-07] VITALS (7 sets, daily range): BP systolic 94–127; BP diastolic 58–72; BMI 25.4
[2024-05-07] MEDS: TYLENOL PO ×2 (01:58→17:44)
[2024-05-07] MEDS: TYLENOL 650 MG PO ×4 (04:11→19:38)
[2024-05-07 04:34] LABS: Hematocrit 24.7 % (37.0-47.0); Hemoglobin 8.1 g/dL (12.0-16.0); Mean Corp Hgb Conc. 32.8 g/dL (33.0-37.0); Mean Corpuscular Hgb 32.5 pg (27.0-31.0); Mean Corpuscular Volume 99.2 fL (81.0-99.0); Mean Platelet Volume 9.9 fL (7.4-10.4); Platelet Count 203 10^3/uL (130-400); Red Blood Cell Count 2.49 10^6/uL (4.20-5.40); Red Cell Dist. Width 14.6 % (11.5-14.5); White Blood Cell Count 9.8 10^3/uL (4.8-10.8)
[2024-05-07 05:10] LABS: Blood Urea Nitrogen 46 mg/dl (7-17); Calcium 9.3 mg/dl (8.4-10.2); Carbon Dioxide 30 mmol/L (22-30); Chloride 93 mmol/L (98-107); Estimated Creatinine Clearance 24 ml/min; Glucose 98 mg/dl (70-99); Potassium 4.3 mmol/L (3.5-5.1); Sodium 134 mmol/L (135-145); eGFR 35.01
--- NOTE | 2024-05-07 05:35 | W.PN.CT ---
Today's Communication / Plan
-
-POD #11 (readmitted)
-continue CT to -20 (IR placed CT 05/06), 600 out initially
-daily CXR, still with LLL opacity: reinforce IS/acapella
-Eliquis on hold
-Lasix/diamox, monitor Cr, still above weight from surgery
-pain control
-PRN/daily nebs
Assessment / Plan
-
Status post standard sternotomy with aortic and bicaval cannulation/Complex mitral valve repair [32 mm been anoplasty, triangular resection, [place]-Jonh cords to P1 and P2, free margin plication, commissuralplasty at A3 P3]/Tricuspid valve repair [28
mm band angioplasty]/Left atrial maze [radiofrequency ablation with encompass clamp and cryoablation]/Left atrial appendage exclusion [45 mm clip], by Dr. Gomez, 04/27/24, POD #10 now re-admitted with large left pleural effusion and mediastinal shift
s/p L pleural CT by IR
chronic diastolic heart failure with preserved left ventricular ejection fraction
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 Gomez
Persistent Atrial fibrillation, now s/p MAZE/ELAA 04/27/24, chronically on eliquis
Hypertension
hx Right bundle branch block/ LAFB/2:1 heart block status post PPM
COPD
Former tobacco use, quit 10 year ago
Chronic kidney disease, stage 3b
Anemia of CKD with acute blood loss anemia, stable
recent bronchitis, tx at [facility] prior to hospitalization for heart surgery
postop pleural effusion s/p Left thoracentesis for 700ml 05/02/24
Past Surgical History: Reports Other
Additional Past Surgical History:
MV repair/TV repair/MAZE/ELAA by Dr. Gomez 04/27/24
S/P bladder suspension
S/P appendectomy
-Acute respiratory insufficiency
-Recurrent L pleural effusion
Subjective
-
Date of Service: May 07, 2024
Objective Data
-
Lab Results
05/07/24 04:08
05/07/24 04:08
PT 19.5 Sec (11.4-14.6) H 05/06/24 10:17
INR 1.66 05/06/24 10:17
APTT 46.6 Sec (23.4-35.0) H 05/06/24 10:17
Vital Signs
Vital Signs
Temp Pulse Resp BP Pulse Ox
98.1 F 70 20 127/66 99
05/07/24 03:57 05/07/24 03:57 05/07/24 03:57 05/07/24 03:57 05/07/24 03:57
CT Intake/Output/Weight
05/06/24 05/06/24 05/07/24
06:59 18:59 06:59
Intake Total 315 / 315
Output Total 800 / 1850 1050 / 1850
Balance -485 / -1535 -1050 / -1535
SaO2: 99
Physical Exam
-
General: Awake, Oriented and AOx3
Cardiovascular: Regular rate & rhythm, No Murmurs and No Rub
Respiratory: Clear and Decreased Breath Sounds (L>R)
Extremities: Edema +1
Data Reviewed
-
Lab Results: Results Reviewed
Medications: Active Meds Reviewed
Chest X-Ray: Report Reviewed and Image Reviewed
ECG: Report Reviewed
[2024-05-07] MEDS: DIAMOX 125 MG PO (11:29)
[2024-05-07] MEDS: CRESTOR 20 MG PO (11:30)
[2024-05-07] MEDS: LOW STRENGTH ASPIRIN 81 MG PO (11:33)
[2024-05-07] MEDS: LASIX 60 MG IV (11:34)
[2024-05-07] MEDS: TOPROL XL 12.5 MG PO ×2 (11:34→21:47)
[2024-05-07] MEDS: KCL 20 MEQ PO (11:37)
[2024-05-07] MEDS: DUONEB 3 ML INH (15:01)
--- NOTE | 2024-05-07 15:50 | CM ---
spoke to pt in room, she is prev indep, lives with her husb, granddaughter and her husb in a 2 story home with 1 step to enter. she has a walker to use if needed. plan is for dc to home when medically stable.
[2024-05-07] MEDS: LASIX 40 MG PO (16:58)
[2024-05-07] MEDS: PULMICORT 0.5 MG INH (19:35)
[2024-05-07] MEDS: ELIQUIS 2.5 MG PO (19:38)
[2024-05-08] MEDS: TYLENOL PO (00:36)
[2024-05-08] MEDS: ROXICODONE 2.5 MG PO (01:13)
--- NOTE | 2024-05-08 02:37 | PTCARENOTE ---
Tele remains AV paced rhythm, HR in the 70's at rest. Left lateral chest tube dressing C/D/I. Remains on -20cm suction per order. No crepitus or air leak present at this time. CT draining serosanguineous fluid. Patient c/o intermittent discomfort at
CT site. PRN Roxicodone 2.5mg administered--see SEP. Pt currently resting in bed. POC ongoing. Call mukherjee within reach.
[2024-05-08 04:45] VITALS: BP 105/59
[2024-05-08 04:57] VITALS: BMI 25.1
[2024-05-08] MEDS: TYLENOL 650 MG PO ×3 (04:57→12:26)
--- NOTE | 2024-05-08 05:17 | W.PN.CT ---
Today's Communication / Plan
-
-No issues overnight
-Chest tube is on -20 cmh2o wall suction, no air leak, drained: 160
-POD #12 (readmitted)
-CXR with left basilar effusion, may need chest tube adjusted basilarly
-Eliquis was resumed yesterday
-Lasix/diamox, monitor Cr, still above weight from surgery
-pain control
-PRN/daily nebs
Assessment / Plan
-
Status post standard sternotomy with aortic and bicaval cannulation/Complex mitral valve repair [32 mm been anoplasty, triangular resection, [place]-Jonh cords to P1 and P2, free margin plication, commissuralplasty at A3 P3]/Tricuspid valve repair [28
mm band angioplasty]/Left atrial maze [radiofrequency ablation with encompass clamp and cryoablation]/Left atrial appendage exclusion [45 mm clip], by Dr. Gomez, 04/27/24, POD #10 now re-admitted with large left pleural effusion and mediastinal shift
s/p L pleural CT by IR, 05/06/24
chronic diastolic heart failure with preserved left ventricular ejection fraction
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 Gomez
Persistent Atrial fibrillation, now s/p MAZE/ELAA 04/27/24, chronically on eliquis
Hypertension
hx Right bundle branch block/ LAFB/2:1 heart block status post PPM
COPD
Former tobacco use, quit 10 year ago
Chronic kidney disease, stage 3b
Anemia of CKD with acute blood loss anemia, stable
recent bronchitis, tx at [facility] prior to hospitalization for heart surgery
postop pleural effusion s/p Left thoracentesis for 700ml 05/02/24
Past Surgical History: Reports Other
Additional Past Surgical History:
MV repair/TV repair/MAZE/ELAA by Dr. Gomez 04/27/24
S/P bladder suspension
S/P appendectomy
-Acute respiratory insufficiency
-Recurrent L pleural effusion
Discussed patient care with: Cardiology, Nursing, Respiratory Therapy, Pharmacy and Care Team
Subjective
-
Date of Service: May 08, 2024
Pt c/o mild chest tube site pain, otherwise feels well
Objective Data
-
Lab Results
05/07/24 04:08
05/07/24 04:08
PT 19.5 Sec (11.4-14.6) H 05/06/24 10:17
INR 1.66 05/06/24 10:17
APTT 46.6 Sec (23.4-35.0) H 05/06/24 10:17
Vital Signs
Vital Signs
Temp Pulse Resp BP Pulse Ox
98.5 F 76 20 105/59 97
05/08/24 04:44 05/08/24 05:00 05/08/24 04:44 05/08/24 04:45 05/08/24 04:44
CT Intake/Output/Weight
05/07/24 05/07/24 05/08/24
06:59 18:59 06:59
Intake Total 240 / 240
Output Total 1050 / 1850 1090 / 1410 320 / 1410
Balance -1050 / -1535 -1090 / -1170 -80 / -1170
SaO2: 97 (RA)
Physical Exam
-
General: Awake, Oriented and AOx3
Cardiovascular: Regular rate & rhythm, No Murmurs and No Rub
Respiratory: Decreased Breath Sounds (at left base)
Sternum: Stable
Incision: Clean, Dry, Intact and Dressing Intact
Extremities: Edema +2
Data Reviewed
-
Lab Results: Results Reviewed
Medications: Active Meds Reviewed
Chest X-Ray: Report Reviewed and Image Reviewed
ECG: Report Reviewed and Image Reviewed
[2024-05-08 06:44] VITALS: BP 96/58
[2024-05-08 08:22] VITALS: BP 110/64
[2024-05-08] MEDS: DUONEB 3 ML INH (08:30)
[2024-05-08] MEDS: TOPROL XL 12.5 MG PO (09:09)
[2024-05-08] MEDS: ELIQUIS 2.5 MG PO (09:10)
[2024-05-08] MEDS: LASIX 40 MG PO (09:11)
[2024-05-08] MEDS: KCL 20 MEQ PO (09:11)
[2024-05-08] MEDS: LOW STRENGTH ASPIRIN 81 MG PO (09:11)
[2024-05-08] MEDS: CRESTOR 20 MG PO (09:11)
[2024-05-08] MEDS: DIAMOX 125 MG PO (09:12)
[2024-05-08 09:45] LABS: Hematocrit 25.6 % (37.0-47.0); Hemoglobin 8.3 g/dL (12.0-16.0); Mean Corp Hgb Conc. 32.4 g/dL (33.0-37.0); Mean Corpuscular Hgb 31.8 pg (27.0-31.0); Mean Corpuscular Volume 98.1 fL (81.0-99.0); Mean Platelet Volume 9.8 fL (7.4-10.4); Platelet Count 291 10^3/uL (130-400); Red Blood Cell Count 2.61 10^6/uL (4.20-5.40); Red Cell Dist. Width 14.5 % (11.5-14.5); White Blood Cell Count 10.2 10^3/uL (4.8-10.8)
[2024-05-08 09:59] LABS: Blood Urea Nitrogen 42 mg/dl (7-17); Calcium 9.6 mg/dl (8.4-10.2); Carbon Dioxide 32 mmol/L (22-30); Chloride 92 mmol/L (98-107); Estimated Creatinine Clearance 24 ml/min; Glucose 144 mg/dl (70-99); Magnesium 1.7 mg/dl (1.6-2.3); Potassium 4.1 mmol/L (3.5-5.1); Sodium 133 mmol/L (135-145); eGFR 35.01
[2024-05-08 11:34] VITALS: BP 92/55
--- NOTE | 2024-05-08 12:09 | W.DCSUMMARY ---
Discharge Summary
Discharge Data
Date of Admission: 05/06/24
Date of Discharge: 05/08/24
-
Pending Results: No
Hospital Course
Primary care physician: Hiren Gamino
Outpatient artist scientific: Christiano Knox
Inpatient consultants: Interventional Radiology
Procedures:
1. Left chest tube placement by IR 05/06/24
Primary Diagnosis:
1. Recurrent left pleural effusion
2. Acute pulmonary insufficiency, resolved
Secondary Diagnoses:
1. chronic diastolic heart failure with preserved left ventricular ejection fraction
2. 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 Gomez
3. Persistent Atrial fibrillation, now s/p MAZE/ELAA 04/27/24, chronically on eliquis
4. Hypertension
5. hx Right bundle branch block/ LAFB/2:1 heart block status post PPM
6. COPD
7. Former tobacco use, quit 10 year ago
8. Chronic kidney disease, stage 3b
9. Anemia of CKD with acute blood loss anemia, stable
10. recent bronchitis, tx at [facility] prior to hospitalization for heart surgery
11. postop pleural effusion s/p Left thoracentesis for 700ml 05/02/24
12. S/P bladder suspension
13. S/P appendectomy
HPI: Patient is an 78-year-old female who recently underwent mitral valve repair, tricuspid repair, exclusion of left atrial appendage and maze on 04/[address] Gomez. She was discharged to home on 05/03 after a left thoracentesis for 700 mL of
pleural fluid on 05/02. She re-presented to the emergency department with complaints of shortness of breath and chest pressure.
Hospital course: Patient was noted to have a large left pleural effusion on chest x-ray in the emergency department. Interventional radiology was consulted for chest tube placement, which was successful and immediately drained 600 mL of
serosanguineous fluid. She was admitted for continued monitoring and complete drainage of her effusion. Patient is still retaining some excess volume from open heart surgery, she was given IV diuresis while in house. On hospital day 2 she
continue with IV Lasix x 1 and then was converted back to p.o. Her morning chest x-ray has improved significantly but still with some residual left pleural effusion. On hospital day 3 chest tube with minimal drainage, CXR stable. Chest tube was
removed at bedside without incident, and she is discharged to home with continued follow-up with the transitional care nurse [facility]. She should have a follow-up chest x-ray in 1 week, this will be coordinated by the transitional nurse
and followed by Dr. Gomez's office.
Home medication changes: he should continue all as prescribed after last hospital discharge. I instructed her to restart 1 week of twice daily Lasix, then continue once daily.
Discharge Plan
-
Patient Disposition: Home (Routine Discharge)
Discharge Diagnosis/Procedures: Left pleural effusion s/p chest tube placement
Condition: Good
Diet: 2 Gram Sodium
Activity: No strenuous activity
Driving Restrictions: Not until seen by your Dr
Bathing Restrictions: OK to shower in 24 hours
Others Tests: have a repeat chest xray completed in 1 week ~05/15
Specialty Instructions: Weigh Daily- Call MD for wt gain/loss 3 lbs overnight/5 lbs in 1 week
Referrals:
Hiren Gamino DO [Family Provider] -
Prescriptions:
Continued
ipratropium-albuterol 0.5 mg-3 mg(2.5 mg base)/3 mL Solution For Nebulization
3 ml INHALATION R Q6HPRN PRN (Reason: SOB)
rosuvastatin 20 mg Tablet
20 mg PO DAILY
bq-bj-etbr-FA-Ca carb-vit K 18 mg iron-400 mcg-500 mg Tablet
1 tab PO DAILY
furosemide 40 mg tablet
40 mg PO BID Qty: 21 0RF
Rx Instructions:
Take 40 mg twice daily for 1 week. Then take 40 mg once daily for 1 week
acetaminophen 325 mg Tablet
650 mg PO Q4HPRN PRN (Reason: mild pain,headache,temp >101F ) Qty: 60 0RF
aspirin 81 mg Tablet,Chewable
81 mg PO DAILY Qty: 60 0RF
metoprolol succinate 25 mg Tablet Extended Release 24 Hr
12.5 mg PO BID Qty: 60 2RF
oxycodone 5 mg Tablet
5 mg PO Q4HPRN PRN (Reason: moderate pain) Qty: 30 0RF
potassium chloride 20 mEq tablet extended release
20 meq PO DAILY 14 Days Qty: 14 0RF
budesonide 0.5 mg/2 mL Suspension For Nebulization
0.5 mg INHALATION R HS
Eliquis 2.5 mg tablet
2.5 mg PO BID
Discharge Orders:
Discharge Patient (As Directed); Ordered 05/08/24
Ordered By: Berkley Guaman
Care Plan Goals
Care Plan Goals:
Problem: Readiness for enhanced knowledge related to diagnosis and treatment plan
Goal: Understand your diagnosis and treatment plan needs, including medications if applicable.
Instructions: Know your diagnosis, underlying causes and treatment plan options, including medications if applicable. Consult with your health care team to learn about your diagnosis and treatment plan, including medications if applicable.
Discharge Date and Time
Print Language: MONTSERRATIAN
[2024-05-08] MEDS: MAGNESIUM OXIDE 500 MG PO (12:26)
[2024-05-08 13:54] VITALS: BP 91/52
--- NOTE | 2024-05-08 14:10 | PTCARENOTE ---
Pt's left, lateral chest tube removed by PA. Dressing changed due to serosanguenous drainage leaking onto pt's bra.
== END 2024-05-08 14:54 | disposition home or self-care (01) | DRG 187 ==
LOC: IVU 14:53
PROVIDERS: Nurse Practitioner; ADMITTING PHYSICIAN Thoracic Surgery (Cardiothoracic Vascular Surgery); ATTENDING PHYSICIAN Thoracic Surgery (Cardiothoracic Vascular Surgery); CONSULT PHYSICIAN Radiology Diagnostic Radiology; EMERGENCY PHYSICIAN Student in an Organized Health Care Education/Training Program; FAMILY PHYSICIAN Family Medicine
PROC: 0W9B30Z Drainage of Left Pleural Cavity with Drainage Device, Percutaneous Approach (ICD-10-PCS; 2024-05-06)
DX: J90 Pleural effusion, not elsewhere classified (principal); D62 Acute posthemorrhagic anemia; D68.32 Hemorrhagic disorder due to extrinsic circulating anticoagulants; E87.1 Hypo-osmolality and hyponatremia; I13.0 Hypertensive heart and chronic kidney disease with heart failure and stage 1 through stage 4 chronic kidney disease, or unspecified chronic kidney disease; I50.32 Chronic diastolic (congestive) heart failure; I48.19 Other persistent atrial fibrillation; N18.32 Chronic kidney disease, stage 3b; E78.00 Pure hypercholesterolemia, unspecified; D63.1 Anemia in chronic kidney disease; J44.9 Chronic obstructive pulmonary disease, unspecified; T45.515A Adverse effect of anticoagulants, initial encounter; R06.89 Other abnormalities of breathing; I44.1 Atrioventricular block, second degree; I08.1 Rheumatic disorders of both mitral and tricuspid valves; Z95.0 Presence of cardiac pacemaker; Z87.891 Personal history of nicotine dependence; Z79.01 Long term (current) use of anticoagulants; Z79.82 Long term (current) use of aspirin; Z79.899 Other long term (current) drug therapy; Z98.890 Other specified postprocedural states
CPT/HCPCS: 32557; 71045; 71046; 80048; 80053; 83735; 83880; 85025; 85027; 85610; 85730; 93005; 94640; 99152; 99153; 99285; C1729; C1769; G0378

== ENCOUNTER → 2024-05-14 12:05 | Outpatient (REF) | payer OTHER, SELFPAY | LOC: RAD 12:05 | PROVIDERS: ATTENDING PHYSICIAN Thoracic Surgery (Cardiothoracic Vascular Surgery); FAMILY PHYSICIAN Family Medicine | DX: J90 Pleural effusion, not elsewhere classified (principal) | CPT/HCPCS: 71046 ==

== ENCOUNTER → 2024-05-21 11:51 | Outpatient (REF) | payer OTHER, SELFPAY | LOC: RAD 11:51 | PROVIDERS: ATTENDING PHYSICIAN Nurse Practitioner Acute Care; FAMILY PHYSICIAN Family Medicine; OTHER PHYSICIAN Thoracic Surgery (Cardiothoracic Vascular Surgery) | DX: J90 Pleural effusion, not elsewhere classified (principal) | CPT/HCPCS: 71046 ==

== ENCOUNTER 2024-11-21 12:16 | Day surgery (SDC) | payer OTHER, SELFPAY ==
[2024-11-21 12:30] VITALS: BP 138/85
[2024-11-21 12:50] VITALS: BP 145/105
[2024-11-21 12:52] VITALS: BP 138/85
[2024-11-21 13:12] LABS: Hematocrit 36.4 % (37.0-47.0); Mean Corpuscular Hgb 32.3 pg (27.0-31.0); Mean Corpuscular Volume 97.8 fL (81.0-99.0); Mean Platelet Volume 10.3 fL (7.4-10.4); Platelet Count 149 10^3/uL (130-400); Red Blood Cell Count 3.72 10^6/uL (4.20-5.40); Red Cell Dist. Width 13.8 % (11.5-14.5); White Blood Cell Count 4.4 10^3/uL (4.8-10.8)
[2024-11-21 13:27] LABS: Blood Urea Nitrogen 30 mg/dl (7-17); Calcium 11.1 mg/dl (8.4-10.2); Carbon Dioxide 27 mmol/L (22-30); Chloride 104 mmol/L (98-107); Glucose 93 mg/dl (70-99); Potassium 4.6 mmol/L (3.5-5.1); Sodium 139 mmol/L (135-145); eGFR 41.31
--- NOTE | 2024-11-21 13:51 | ITS.CL.PACE ---
Handle Sander Operator - Pacemaker Implant
Pacemaker Implant
Procedure Report:
PACEMAKER IMPLANT REPORT
Primary Care Physician: Dr. Hiren Gamino
Primary Pin Setter: Myself
Date of Procedure: November 21, 2024
Procedure:
1: Atrial lead repositioning within the header with loose set screw
Indication/Diagnosis:
1: Increase in atrial lead impedance with noise on the lead with motion suggesting possible impending lead fracture
History: The patient is an 79-year-old woman with a complex past medical history including pacemaker placement in March of last year for sick sinus syndrome and intermittent high degree AV block. She then underwent mitral valve repair surgery
with tricuspid ring placement. She did very well with surgery and all pacemaker lead data was stable postoperatively. In the last couple months she has had a precipitous increase in the atrial lead impedance or unclear cause. There is now also
noise on the atrial lead with arm motion that is reproducible with movement. The concern is for possible impending fracture. She is not pacer dependent. Sensing and pacing thresholds in that atrial lead are stable. The ventricular lead
parameters are stable. After a long discussion or options with her and her granddaughter we have elected to proceed with atrial lead revision.
Antibiotic: Ancef 2 g IV
Sedation: Conscious sedation as per anesthesia staff
Description of Procedure: After informed consent was obtained, 'time out' was called and confirmed, the patient was prepped and draped in a sterile fashion. Lidocaine with epinephrine was used for local anesthesia. Manipulation of the pocket with
administration of lidocaine showed impressive atrial noise. Once the device and leads were dissected out it was clear that the noise was reproduced by pressure on the atrial lead at the header. The set screw was unscrewed and the lead was then
checked with the analyzer - all parameters were stable and repeat identical manipulation of the lead showed no noise at all. Inspection of the header and function of the atrial set screw appeared normal and functioned normally. The atrial lead was
then replaced back in the header and the screw was tightened - now interrogation through the device all the data was stable. No further noise could be elicited with manipulation of the lead at the header. This seemed diagnostic of a problem with
the set screw loosening as the unusual cause of the change in impedance parameters. I considered placing a new can but since the set screw function looked normal I chose to stay with the original pacemaker. The pocket was flushed with antibiotic
solution. The leads were connected to the generator header and the leads and generator were placed in an antibiotic pouch and placed within the pocket. Fluoroscopy confirmed stable lead position. The pocket was closed in the typical fashion.
IMPLANTS:
Company: [employer] Edtavo DRT SN: [id number] left Pectoral
RA: Biotronik Solia S 45, SN: [id number], RAA
RV: Biot[employer]ik Solia S 53, SN: [id number], RV apical septum
Device Testing:
Sensing: RA 2.7mV RV 5.2 mV
Capture: RA 1.1V @0.4ms, RV 0.9V @0.4ms
Ohms: RA 468, RV 468
FINAL PROGRAMMING
Alex Pacing: DDD/CLS 70-130 ppm
Complications: None.
Fluoroscopy Time (min): 0.5
Radiation Dose (mGy): 0.39
DAP (Gy.cm2): 0.0514
CONCLUSIONS:
1: Successful reinsertion/repositioning of atrial lead in the header with resolution of atrial noise and correction of elevated impedance
RECOMMENDATIONS:
1. Routine post-op care - plan for d/c home later today.
2. In-Office wound check tuesday.
3. Office interrogation within 4 weeks.
[2024-11-21 15:17] VITALS: BP 141/79
[2024-11-21 15:33] VITALS: BP 143/79
[2024-11-21 15:48] VITALS: BP 126/82
== END 2024-11-21 16:00 | disposition home or self-care (01) ==
LOC: CATH 12:16
PROVIDERS: ATTENDING PHYSICIAN Internal Medicine Interventional Cardiology; PRIMARYCARE PHYSICIAN Family Medicine
DX: T82.190A Other mechanical complication of cardiac electrode, initial encounter (principal); Y83.9 Surgical procedure, unspecified as the cause of abnormal reaction of the patient, or of later complication, without mention of misadventure at the time of the procedure; Z79.899 Other long term (current) drug therapy; Z79.82 Long term (current) use of aspirin; I49.5 Sick sinus syndrome; Z95.0 Presence of cardiac pacemaker
CPT/HCPCS: 33215; 80048; 85027; C1892; Q9967

== ENCOUNTER 2025-01-22 11:18 | Emergency (ER) | payer OTHER, SELFPAY ==
[2025-01-22 11:21] VITALS: BP 127/71
[2025-01-22 11:39] LABS: Hematocrit 35.1 % (37.0-47.0); Hemoglobin 11.7 g/dL (12.0-16.0); Mean Corp Hgb Conc. 33.3 g/dL (33.0-37.0); Mean Corpuscular Volume 97.8 fL (81.0-99.0); Nucleated Red Blood Cells % 0 %; Platelet Count 131 10^3/uL (130-400); Red Cell Dist. Width 12.4 % (11.5-14.5)
[2025-01-22 11:52] LABS: INR 0.98; PT 13.3 Sec (11.4-14.6)
[2025-01-22 12:01] LABS: ALT (SGPT) 16 U/L (0-35); AST (SGOT) 24 U/L (14-36); Albumin 4.2 g/dl (3.5-5.0); Alkaline Phosphatase 55 U/L (38-126); Blood Urea Nitrogen 26 mg/dl (7-17); Calcium 10.8 mg/dl (8.4-10.2); Carbon Dioxide 23 mmol/L (22-30); Chloride 104 mmol/L (98-107); Glucose 122 mg/dl (70-99); Potassium 4.9 mmol/L (3.5-5.1); Sodium 134 mmol/L (135-145); Total Protein 6.4 g/dl (6.3-8.2); eGFR 50.48
[2025-01-22 12:13] LABS: Troponin I 0.013 ng/ml
--- NOTE | 2025-01-22 13:31 | ED.GENMED ---
History of Present Illness
General
Chief Complaint: Breathing Problem
Source: patient
Time Seen by Provider: 01/22/25 13:25
History of Present Illness
History of Present Illness:
79-year-old female presents to emergency room complaining of shortness of breath. Patient feels like she has been feeling short of breath over the past couple weeks. At rest she is okay but when she ambulates she feels short of breath. She is
also noted that she is particularly short of breath at night when she is lying flat. She wakes up in the middle of the night extremely dyspneic and then has to sit in a chair to get any more sleep. She is not taking any oral diuretic. Patient has
a history of pleural effusions which were present after valve replacement surgery in April 2024. Patient required chest tube at that time. She denies any fever or chills. She has a mild nonproductive cough. No chest pain, nausea or vomiting.
Patient does monitor her weight and states that it had recently gone up to 127 from her baseline of 125 but was back down to her baseline couple days ago. Patient admits to not following a low-salt diet.
Phy Exam
Physical Exam
Physical Exam:
General: Awake, Alert, Oriented X3. No acute distress. Appears quite thin, chronically ill
Vitals: unremarkable
Head: Atraumatic
Eyes: Pupils equal, EOMI
Throat: Airway intact, no exudates
Neck: Trachea midline
Lungs: Crackles bilateral bases
Heart: Regular rate, no murmurs
Abd: Soft, Nontender, No pulsatile mass
Neuro: Nonfocal
Skin: Warm, dry, no rash
Extremities: pulses equal b/l, 1+ edema
Scores
Heart Failure Risk
Heart Failure Risk Score: Yes
History of Stroke or TIA: No
History of intubation for respiratory distress: No
Heart rate on ED arrival >/= 110: No
SaO2 <90% on arrival on room air: No
HR >/=110 during 3min walk test (or too ill to perform test): No
ECG has acute ischemic changes: No
Urea >/=12mmol/L (BUN 33.6mg/dL): No
Serum CO2>/=35mmol/L: No
Troponin I or T elevated to NC Level (0.4mg/dL): No
NT-proBNP >/=5,000ng/L (5,000pg/ml): No
HF Risk Score: 0
Admission Status: LOW RISK 2.8% Consider discharge to home with f/u visit to PCP/Farm Consultant
Course
Orders/Labs/Results
Orders:
Orders
01/22/25 11:23
EKG [Electrocardiogram (*1)] Urgent
Reason for Study: Shortness of Breath
EKG- Treatment ONCE
CR Chest - 2 Views Urgent
Comment:
Reason For Exam: SOB
01/22/25 11:34
Complete Blood Count/With Diff Urgent
Comprehensive Metabolic Panel Urgent
NT-proBNP Urgent
Comment: ADD ON
Prothrombin Time Urgent
Troponin I Urgent
01/22/25 13:30
Add On- LAB Urgent
Tests Added?: bnp
01/22/25 13:46
Interrogate Pacemaker- Treatment ONCE
Comment: Biotronik device
01/22/25 15:19
Furosemide [Lasix] 40 mg IV NOW STA
Abnormal Lab Results
01/22/25
11:34
RBC 3.59 L 10^6/uL
(4.20-5.40)
Hgb 11.7 L g/dL
(12.0-16.0)
Hct 35.1 L %
(37.0-47.0)
MCH 32.6 H pg
(27.0-31.0)
MPV 10.5 H fL
(7.4-10.4)
Absolute Neuts (auto) 7.5 H 10^3/uL
(1.4-6.5)
Absolute Lymphs (auto) 0.7 L 10^3/uL
(1.2-3.4)
Neutrophils % 82.4 H %
(42.2-75.2)
Lymphocytes % 8.1 L %
(20.5-51.1)
Sodium 134 L mmol/L
(135-145)
BUN 26 H mg/dl
(7-17)
Creatinine 1.1 H mg/dL
(0.6-1.0)
Glucose 122 H mg/dl
(70-99)
Calcium 10.8 H mg/dl
(8.4-10.2)
01/22/25 11:34
01/22/25 11:34
Vital Signs
Initial and Last Documented VS:
Initial Vital Signs
Temp Pulse Resp BP Pulse Ox
97.7 F 76 17 127/71 96
01/22/25 11:21 01/22/25 11:21 01/22/25 11:21 01/22/25 11:21 01/22/25 11:21
Last Documented Vital Signs
Temp Pulse Resp BP Pulse Ox
97.7 F 72 18 154/83 96
01/22/25 11:21 01/22/25 16:47 01/22/25 16:47 01/22/25 16:47 01/22/25 16:47
MDM/Problems Addressed
Differential Diagnosis Includes:
Pleural effusion, congestive heart failure, anemia, acute coronary syndrome
MDM/Problems Addressed:
Patient presents with shortness of breath particularly at night and with lying flat. Labs here showed normal troponin, normal hemoglobin, minimal renal insufficiency. BNP is elevated at 1960 but this is lower than previous measurements that were
before the patient had valvular repair placement. Chest x-ray does not reveal a large pleural effusion. There is trace pleural fluid. Appears to be a bit of cephalization to my eye. Will treat the patient with a dose of IV Lasix and start oral
Lasix. Patient stable for discharge and close follow-up with Dr. Christiano Knox her management psychologist.
*Radiology
Radiology exam reviewed: preliminary read by ED provider (Mild cephalization)
*Pulse Oximetry
SaO2: 96
Oxygen Mode of Delivery: Room air
Patient hypoxic: no
*EKG
Interpreted by ED Provider?: Yes
Heart Rate: 85
Rate: normal
Rhythm: av sequential
[place]: left axis deviation
QRS Pattern: left bundle branch block
Ischemia: non-specific ST changes
*[employer] Teacher Interpretation
Rate: normal
Interpretation: abnormal
Heart Rate: 85
Rhythm: av sequential
*Critical Care Note
Total Time (30-74mins, 75-104mins- exclusive of procedures): Not Applicable
Data Reviewed
Review of Other/Old Records Reveals: Radiology Studies and Discharge Summary
Patient Management
Social determinants of health affecting care: Strong social support
ED Attending Note
-
Portions of this chart may have been created with voice recognition software.� Occasional wrong word or��sound alike� substitutions may have occurred due to the inherent limitations of voice recognition software.
Discharge Plan
Departure
Patient Disposition: Home (Routine Discharge)
Date of Disposition: 01/22/25
Time of Disposition: 16:21
Patient with high blood pressure during this ER visit?: Yes
Condition: Fair
Discharge Problem:
CHF (congestive heart failure)
Instructions: *PCP/Other Farm Consultant Heart Failure Instructions
Prescriptions:
New
furosemide [Lasix] 20 mg tablet
20 mg PO DAILY Qty: 30 0RF
potassium chloride [Klor-Con 10] 10 mEq tablet extended release
10 meq PO DAILY Qty: 30 0RF
No Action
ipratropium-albuterol 0.5 mg-3 mg(2.5 mg base)/3 mL Solution For Nebulization
3 ml INHALATION R Q6HPRN PRN (Reason: SOB)
rosuvastatin 20 mg Tablet
20 mg PO DAILY
acetaminophen 325 mg Tablet
650 mg PO Q4HPRN PRN (Reason: mild pain,headache,temp >101F ) Qty: 60 0RF
aspirin 81 mg Tablet,Chewable
81 mg PO DAILY Qty: 60 0RF
metoprolol succinate 25 mg Tablet Extended Release 24 Hr
12.5 mg PO BID Qty: 60 2RF
budesonide 0.5 mg/2 mL Suspension For Nebulization
0.5 mg INHALATION R HS
escitalopram oxalate 5 mg Tablet
5 mg PO DAILY
Referrals:
Hiren Gamino DO [Family Provider, Family Practice]
Pamela Knox MD [Active, Cardiology]
Interventions
Interventions:
*Risk Screen - Suicide Last Done: 01/22/25 11:22
*General Assessment Last Done: 01/22/25 11:22
*Neglect/Abuse Screening Last Done: 01/22/25 11:22
*ED COVID-19 Vaccine History Last Done: 01/22/25 11:22
*Nursing Disposition Last Done: 01/22/25 16:47
ED- Cardiac Assessment Last Done: 01/22/25 14:36
ED- Pulmonary Assessment Last Done: 01/22/25 14:33
Discharge Date and Time
Discharge Date/Time: 01/22/25 16:49
Print Language: THAI
[2025-01-22 14:23] VITALS: BP 154/81
[2025-01-22 14:31] VITALS: BMI 23.0
[2025-01-22 15:00] VITALS: BP 143/92
[2025-01-22] MEDS: LASIX 40 MG IV (15:39)
[2025-01-22 16:00] VITALS: BP 154/83
[2025-01-22 16:47] VITALS: BP 154/83
== END 2025-01-22 16:49 | disposition home or self-care (01) ==
LOC: EMR 11:18
PROVIDERS: Emergency Medicine; EMERGENCY PHYSICIAN Emergency Medicine; FAMILY PHYSICIAN Family Medicine
DX: I50.9 Heart failure, unspecified (principal); Z95.2 Presence of prosthetic heart valve
CPT/HCPCS: 99283; 96374; 71046; 80053; 83880; 84484; 85025; 85610; 93005